=== PATIENT | female | born 1945 | race Caucasian/White ===

== ENCOUNTER 2021-06-21 16:18 | Inpatient (IN) | payer MEDICARE ==
[~2021-06-21] VITALS: Ht 157.5 cm; Wt 89.6 kg
[2021-06-22] MEDS ORDERED: TRIA1TAB5 PO (09:33)
[2021-06-22] MEDS ORDERED: HYDR-3820 PO (09:33)
[2021-06-22] MEDS ORDERED: DIPH25CA79 PO (09:33)
[2021-06-22] MEDS ORDERED: AMLO2.5T4 PO (09:33)
[2021-06-22] MEDS ORDERED: LEVO5TAB28 PO (09:33)
[2021-06-22] MEDS ORDERED: ROPI1TAB PO (09:33)
[2021-06-22] MEDS ORDERED: POTA-51 PO (09:33)
[2021-06-22] MEDS ORDERED: MELO15TA14 PO (09:33)
[2021-06-22] MEDS ORDERED: LEVO137T2 PO (09:34)
[2021-06-22] MEDS ORDERED: MULT-1136 PO (09:34)
[2021-06-22] MEDS ORDERED: FLUT9.9S NSEACH (09:34)
[2021-06-22] MEDS ORDERED: FURO40TA4 PO (09:34)
[2021-06-22] MEDS ORDERED: MELO7.5T46 PO (09:40)
[2021-06-22] MEDS ORDERED: LOPERAMIDE 2 MG (IMODIUM) TABLET PO PRN (12:15)
[2021-06-22] MEDS ORDERED: MELATONIN 3 MG TABLET PO PRN (12:15)
[2021-06-22] MEDS ORDERED: ONDANSETRON 4 MG (ZOFRAN) ORAL DISSOLVE TAB PO PRN (12:15)
[2021-06-22] MEDS ORDERED: FLEET ENEMA ADULT 1 EA BTL PR PRN (12:15)
[2021-06-22] MEDS ORDERED: ACETAMINOPHEN 325 MG TABLET PO PRN (12:15)
[2021-06-22] MEDS ORDERED: ALPRAZolam 0.25 MG (XANAX) TAB PO PRN (12:15)
[2021-06-22] MEDS ORDERED: LACTULOSE SYRUP 10GM/15ML (ENULOSE) 30ML UDC PO PRN (12:15)
[2021-06-22] MEDS ORDERED: DOCUSATE SODIUM 100 MG (COLACE) CAP PO PRN (12:15)
[2021-06-22] MEDS ORDERED: guaiFENesin/CODEINE (ROBITUSSIN AC) 10ML UDC PO PRN (12:15)
--- NOTE | 2021-06-22 14:20 | Occupational Therapy Eval ---
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 06/18/21 s/p R GSR, R reverse angela osteotomy, fusion R 1-3 metatarsocunieform joints. Social History Home: Single Level Current Living Status: Alone Entry Into Home: Ramp Steps Into Home: 0 Steps Inside Home: 0 ADL-Prior Level of Function SCALE: Activities may be completed with or without assistive devices. 9-Nrqqrojtcq-mmeltcn completes the activity by him/herself with no assistance from a helper. 5-Set-up or Clean-up Assistance-helper sets up or cleans up; patient completes activity. [place] assists only prior to or following the activity. 4-Supervision or Touching Assistance-helper provides verbal cues and/or vince kendra/steadying and/or contact guard assistance as patient completes activity. Assistance may be provided throughout the activity or intermittently. 3-Partial/Moderate Assistance-helper does LESS THAN HALF the effort. [place] lifts, holds or supports trunk or limbs, but provides less than half the effort. 2-Substantial/Maximal Assistance-helper does MORE THAN HALF the effort. [place] lifts or holds trunk or limbs and provides more than half the effort. 5-Tpqfevxvb-czdiru does ALL the effort. Patient does none of the effort to complete the activity. Or, the assistance of 2 or more helpers is required for the patient to complete the activity. If activity was not attempted, code reason: 7-Patient Refused. 9-Not Applicable-not attempted and the patient did not perform the activity before the current illness, exacerbation or injury. 10-Not Attempted due to Environmental Limitations-(lack of equipment, weather restraints, etc.). 88-Not Attempted due to Medical Conditions or Safety Concerns. ADL PLOF Comments Pt reports IND with ADLs and functional mobility at OF, no AE/AD. Pt has a walk in shower with a SC. She owns a walker and her daughter has a knee scooter pt can use. Self Care: Independent Functional Cognition: Independent DME/Equipment: Bath Chair, Shower DME/Equipment Comments walker, knee scooter. Pt states she is working on getting a w/c. OT Current Status Subjective Pt arrived to [facility]. Agreeable to OT evaluation and tx. Mental Status/Objective Patient Orientation: Person, Place, Situation Current Hand Dominance: Right Upper Extremity ROM WFL Upper Extremity Strength grossly 4/5 ADL-Treatment Eating (QC): 6 (Per pt report.) Oral Hygiene (QC): 4 (CGA standing at sink with knee scooter) Shower/Bathe Self (QC): 4 (SBA, pt able to wash/dry all parts seated on SC.) Upper Body Dressing (QC): 3 (Min A doffing jacket. Pt able to doff/don last puller shirt with set up.) Lower Body Dressing (QC): 1 (assist x2 for pant hike.) On/Off Footwear (QC): 3 (Mod A. Pt able to doff footwear on L foot, assist to don shoe L foot. ) Toileting Hygiene (QC): 1 (assist x2 required.) Other Treatments [id number] OT evaluation/tx. Pt assisted from car to w/c, then brought to [facility] to her room. Pt provided information about PLOF and home set up and participated in UE screen. Pt requests to use the bathroom, SPT from w/c to [facility] over toilet complete, assist x2 required for clothing management. Pt completed toileting, then transferred back to w/c. Post tx, pt in w/c, call light in reach and all needs met. [id number]: OT/PT cotreat due to skill of 2 clinicians required which a rehab director occupational therapist could not perform in order to coordinate UE/LEs, decrease fall risk, and due to pt's limitations in strength, activity tolerance, mobility and transfers. OT focused on UE placement, cues for sequencing and safety, and ADLs, PT focused on LE placement, gross overall movements, transfers/mobility. Pt completed bed mobility and trialed knee scooted around [facility] common area and across uneven surface (min A for balance), mod A sit to stand transfers.. Pt returned to her room, took seated rest break in w/c, then completed SPT from w/c to SC. Pt doffed clothes, completed shower, then donned clothes. Pt requests to complete hair at sink. Pt stood at sink to put product in her hair, and dry hair with hair bone drier operator, standing with knee scooter at sink in order to increase dynamic standing balance. Pt then transferred to recliner. Post tx, pt in recliner, call light in reach and all needs met, PT present to continue tx. Education OT Patient Education: Correct positioning, Energy conservation, Modified ADL techniques, Progress toward Goal/Update tx plan, Purpose of tx/functional activities, Rehab process Teaching Recipient: Patient Teaching Methods: Discussion Response to Teaching: Verbalize Understanding OT Short Term Goals Short Term Goals Time Frame: Jul 13, 2021 Shower/bathe self: 3 Lower body dressin Putting on/taking off footwear: 3 OT Custodial Goals Aids Counselor Goals Time Frame: Jul 20, 2021 Eating (QC): 6 Oral Hygiene (QC): 6 Toileting Hygiene (QC): 6 Shower/Bathe Self (QC): 6 Upper Body Dressing (QC): 6 Lower Body Dressing (QC): 6 On/Off Footwear (QC): 6 Additional Goals: 1-Demonstrate ADL Tasks, 2-Verbalize Understanding, 3- ImproveStrength/Dallin 1=Demonstrate adherence to instructed precautions during ADL tasks. 2=Patient will verbalize/demonstrate understanding of assistive devices/modifications for ADL. 3=Patient will improve strength/tolerance for activity to enable patient to perform ADL's. OT Education/Plan Problem List/Assessment Assessment: Decreased Activ Tolerance, Decreased UE Strength, Impaired Funct Balance, Impaired I ADL's, Impaired Self-Care Skills Discharge Recommendations Plan/Recommendations: Continue POC Treatment Plan/Plan of Care Patient would benefit from OT for education, treatment and training to promote independence in ADL's, mobility, safety and/or upper extremity function for ADL's. Plan of Care: ADL Retraining, Functional Mobility, Group Exercise/Act as Ind, UE Funct Exercise/Act Treatment Duration: Jul 20, 2021 Frequency: At least 5 of 7 days/Wk (IRF) Estimated Hrs Per Day: 1.5 hours per day Agreement: Yes Rehab Potential: Fair Time/GCodes Start Time: 13:40 ([id number]) Stop Time: 15:40 ([id number]) Total Time Billed (hr/min): 80 Billed Treatment Time OT evaluation [id number]: 1, EVM (20') Cotreat [id number]: 1, FA (20'), ADL 3 (40') JORGE TRENT OT Jun 22, 2021 14:20
--- NOTE | 2021-06-22 14:23 | Physical Therapy Evaluation ---
PT Evaluation-General Medical Diagnosis Admission Date 06/22/2021 Medical Diagnosis: R Acquired Pes Planovalgus Deformity with Arthrosis of R foot Onset Date: Jun 22, 2021 Therapy Diagnosis Therapy Diagnosis: weakness, debility Precautions Precautions/Isolations: Fall Prevention, Standard Precautions Weight Bear Status Right Lower Extremity: Right Non Weight Bearing Left Lower Extremity: Left Full Weight Bearing Referral Physician: Mathew Reason for Referral: Evaluation/Treatment Medical History Pertinent Medical History: DM, HTN, OA Additional Medical History Multiple vertebral fusions Bilateral TKA Social History Home: Single Level Current Living Status: Alone Entry Into Home: Ramp Prior Prior Level of Function SCALE: Activities may be completed with or without assistive devices. 4-Jarpwapogp-gzioaei completes the activity by him/herself with no assistance from a helper. 5-Set-up or Clean-up Assistance-helper sets up or cleans up; patient completes activity. [place] assists only prior to or following the activity. 4-Supervision or Touching Assistance-helper provides verbal cues and/or touching/steadying and/or contact guard assistance as patient completes activity. Assistance may be provided throughout the activity or intermittently. 3-Partial/Moderate Assistance-helper does LESS THAN HALF the effort. [place] li fts, holds or supports trunk or limbs, but provides less than half the effort. 2-Substantial/Maximal Assistance-helper does MORE THAN HALF the effort. [place] lifts or holds trunk or limbs and provides more than half the effort. 6-Jzccfyefp-iwvdbl does ALL the effort. Patient does none of the effort to complete the activity. Or, the assistance of 2 or more helpers is required for the patient to complete the activity. If activity was not attempted, code reason: 7-Patient Refused. 9-Not Applicable-not attempted and the patient did not perform the activity before the current illness, exacerbation or injury. 10-Not Attempted due to Environmental Limitations-(lack of equipment, weather restraints, etc.). 88-Not Attempted due to Medical Conditions or Safety Concerns. Bed Mobility: 6 Transfers (B,C,W/C): 6 Gait: 6 Indoor Mobility (Ambulation): Independent Prior Devices Use: Walker PT Evaluation-Current Subjective Patient presented in w/c and agreed to participate in physical therapy. Objective Patient Orientation: Person, Place, Time, Situation, Normal For Age ROM/Strength ROM Lower Extremities WFL L LE R LE soft cast Strength Lower Extremities 4/5 strength L LE grossly R LE not tested due to recent surgery. Integumentary/Posture Bowel Incontinence: No Bladder Incontinence: No Posture Trunk flexed posture Neuromuscular (Tone, Coordination, Reflexes) grossly intact Sensory Vision: Wears Glasses Hearing: Functional Transfers Roll Left & Right (QC): 6 Sit to Lying (QC): 4 Lying to Sitting/Side of Bed(Q: 4 Sit to Stand (QC): 2 Chair/Vnr-nn-Svebv Xfer(QC): 2 Toilet Transfer (QC): 1 (PT OT co-treat due to assist pulling pants up and down for toileting) Car Transfer (QC): 2 Transfers are mod assist x2 Gait Does the Patient Walk?: Yes Mode of Locomotion: Walk Anticipated Mode of Locomotion: Walk Walk 10 feet (QC): 3 Walk 50 ft with 2 Turns(QC): 3 Walk 150 ft (QC): 3 Walking 10ft/uneven surface-QC: 3 Comments/Gait Description Patient ambulated with knee scooter for 150' and required min assist for balance. Patient ambulated over unsteady ground with min assist also to help get over a bump and balance. Wheelchair Training Does the Pt Use a Wheelchair?: No Wheel 50 ft with 2 turns (QC): 88 Wheel 150 ft (QC): 88 Stairs 1 Step (curb) (QC): 88 4 Steps (QC): 88 12 Steps (QC): 88 Balance Sitting Static: Normal Sitting Dynamic: Normal Standing Static: Fair Standing Dynamic: Poor Picking up an Object (QC): 1 (Patient attemted and unable to perform safely) Treatment PT co-treated with OT due to patient debility, lack of endurance, lack of balance and for patient safety. PT worked on transfer techniques, balance, sit to stand transfers, and stand pivot transfers while OT worked on bathing, self care, and dressing. Assessment/Needs Patient required min assist while ambulating with the knee scooter. Patient required mod assist for sit to stand transfers and toilet transfer and undressing required mod assist x2 for balance and help with undressing. Patient requires skilled therapy to increase endurance, strength, ALD's and ambulation to return to PLOF. Rehab Potential: Fair PT Short Term Goals Short Term Goals Time Frame: Jul 06, 2021 Roll Left & Right: 4 Sit to lyin Lying to sitting on side of be: 4 Sit to stand: 4 Chair/bnp-cz-avurm transfer: 4 Toilet transfer: 4 Car transfer: 4 Walk 10 feet: 4 Walk 50 feet with two turns: 4 Walk 150 feet: 4 Walking 10ft on uneven surface: 4 1 step (curb): 2 Picking up objects: 2 Does pt use a wc or scooter: Yes Wheel 50ft w/2 turns: 4 Wheel 150 feet: 4 Type: Manual PT Assembly Line Worker Goals Penitentiary Goals PT Penitentiary Goals Time Frame: Jul 20, 2021 Roll Left & Right (QC): 6 Sit to Lying (QC): 6 Lying-Sitting on Side/Bed(QC): 6 Sit to Stand (QC): 6 Chair/Odx-ln-Rjeqj Xfer(QC): 6 Toilet Transfer (QC): 6 Car Transfer (QC): 6 Does the Patient Walk: Yes (Knee Scooter) Walk 10 feet (QC): 6 Walk 50ft with 2 Turns (QC): 6 Walk 150 ft (QC): 6 Walking 10ft on Uneven Surface: 6 1 Step (curb) (QC): 6 4 Steps (QC): 88 12 Steps (QC): 88 Picking up an Object (QC): 2 Does the Pt use WC or Scooter?: Yes Wheel 50 feet with 2 turns (QC: 6 Type: Manual Wheel 150 feet: 6 Type: Manual PT Plan Problem List Problem List: Activity Tolerance, Functional Strength, Safety, Balance, Gait, Transfer, Bed Mobility, ROM Treatment/Plan Treatment Plan: Continue Plan of Care Treatment Plan: Bed Mobility, Concurrent Therapy, Education, Functional A ctivity Dallin, Functional Strength, Group Therapy, Gait, Safety, Therapeutic Exercise, Transfers Treatment Duration: Jul 20, 2021 Frequency: At least 5 of 7 days/Wk (IRF) Estimated Hrs Per Day: 1.5 hours per day Patient and/or Family Agrees t: Yes Safety Risks/Education Patient Education: Gait Training, Transfer Techniques, Reviewed Precautions, Correct Positioning, Safety Issues Teaching Recipient: Patient Teaching Methods: Discussion Response to Teaching: Verbalize Understanding Time/GCodes Time In: 1400 Time Out: 1515 Total Billed Treatment Time: 45 Total Billed Treatment 1 Visit EVMod (14:00-14:10) 10 min 1 Visit FAx2 (14:40-15:15) 35 min (14:10-14:40) ISRA TAYLOR PT Jun 22, 2021 14:23
--- NOTE | 2021-06-22 14:53 | ST Cognitive Linguistic Eval ---
Speech Evaluation-General Medical Diagnosis s/p R pes Planus Correction Onset Date: Jun 18, 2021 Therapy Diagnosis Therapy Diagnosis: Cognitive Linguistic Skills WNL Precautions Precautions: Fall Precautions/Isolations: Standard Precautions Referral Referring Physician: Dr. 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 Reviewed History: Yes Social History Current Living Status: Alone Speech PLF-Current Status Prior Level of Function The patient denied concerns with her speech, language or cognition prior to or following her recent hospitalization. Subjective The patient is seated upright in wheelchair upon entrance to the room. The patient greeted the clinician appropriately and is agreeable to participation in the cognitive linguistic evaluation. The patient's daughter is present intermittently throughout the assessment. Language Eval: Auditory Comprehends Simple Yes/No Ques: Functional Indent/Objects Multiple [place]: Functional Ident/Pics in Multiple [place]: Functional Follows 1-Step Commands: Functional Follows Complex Directions: Functional Follows General Conversations: Functional Language Eval: Verbal Language Completes Spontaneous Greeting: Functional Produces Auto, Serial Info: Functional Imitates Simple Words/Phrases: Functional Word Finding: Functional Requests Basic Needs: Functional States Basic Personal Info: Functional Expresses Complex Ideas: Functional Language Evaluation: Reading Follows Simple Written Direct: Functional Language Evaluation: Writing Writes to Simple Dictation: Functional Cognitive Patient Orientation The patient is independently oriented to self, location, month, day of week, date and year. Objective Cognitive Domain Attention: WNL Memory: WNL Problem Solving: Functional Executive Functions: WNL Visuospatial Skills: WNL Composite Severity Rating: WNL Clock Drawing Severity Rating: WN Objective Formal/Standardized Tests [facility] Mental Status ([facility]) Results The patient demonstrated a result of +30/30 on the SLUMS correlating to normal neurocognitive function. Oral Motor/Speech Production The patient does not display dysarthria or apraxia of speech at this time. The patient is 100% intelligible in known and unknown contexts. Impression The patient demonstrated neurocognitive function WNL. Speech Patient Assess Expression of Ideas/Wants: Expression (4) Understanding Verbal Content: Understands (4) Brief Interview-Mental Status: Yes Repetition of Three Words: Three (3) Temporal Orientation: Year: Correct (3) Temporal Orientation: Month: Accurate within 5 days(2) Temporal Orientation: Day: Correct (1) Recall : Wear to say "Sock": Yes, no cue required (2) Recall : Color: Yes, no cue required (2) Recall : Bed: Yes, no cue required (2) Memory/Recall Ability: Current season, Location of own room, Staff names and faces, That he or she is in a hsp/hsp unit Speech-Plan Treatment Plan Speech Therapy Treatment Plan: Discontinue ST Frequency: 1 time per week Estimated Hrs Per Day: .5 hour per day Rehab Potential: Fair Pt/Family Agrees to Plan: Yes Safety Risks/Education Teaching Recipient: Patient Teaching Methods: Discussion Response to Teaching: Verbalize Understanding Education Topics Provided: Results of SLDREA, Plan of Care Time Speech Therapy Time In: 14:10 Speech Therapy Time Out: 14:40 Total Billed Time: 30 Billed Treatment Time 1, MESSI CHAPARRO [facility] ST Jun 22, 2021 14:53
--- NOTE | 2021-06-22 15:56 | Physical Therapy Daily Note ---
PT Daily Note-Current Subjective Patient in the BR finishing shower with OT upon PT arrival. Patient agreeable to treatment. Mental Status Patient Orientation: Person, Place, Time, Situation Transfers SCALE: Activities may be completed with or without assistive devices. 0-Qlfxkddocm-awazcdb completes the activity by him/herself with no assistance from a helper. 5-Set-up or Clean-up Assistance-helper sets up or cleans up; patient completes activity. [place] assists only prior to or following the activity. 4-Supervision or Touching Assistance-helper provides verbal cues and/or touching/steadying and/or contact guard assistance as patient completes activit y. Assistance may be provided throughout the activity or intermittently. 3-Partial/Moderate Assistance-helper does LESS THAN HALF the effort. [place] lifts, holds or supports trunk or limbs, but provides less than half the effort. 2-Substantial/Maximal Assistance-helper does MORE THAN HALF the effort. [place] lifts or holds trunk or limbs and provides more than half the effort. 2-Jhqfyxuqi-xpgoqy does ALL the effort. Patient does none of the effort to complete the activity. Or, the assistance of 2 or more helpers is required for the patient to complete the activity. If activity was not attempted, code reason: 7-Patient Refused. 9-Not Applicable-not attempted and the patient did not perform the activity before the current illness, exacerbation or injury. 10-Not Attempted due to Environmental Limitations-(lack of equipment, weather restraints, etc.). 88-Not Attempted due to Medical Conditions or Safety Concerns. Sit to Stand (QC): 3 Chair/Tok-be-Fchfe Xfer(QC): 3 Toilet Transfer (QC): 3 Weight Bearing Right Lower Extremity: Right Non Weight Bearing Left Lower Extremity: Left Full Weight Bearing Gait Training Does the Patient Walk?: Yes Distance: 50 Walk 10 feet (QC): 4 Walk 50 ft with 2 Turns(QC): 4 Patient uses knee scooter for gait and mobility. Treatments Patient performed static and dynamic standing balance while right LE supported on knee scooter. Assessment Current Status: Fair Progress Patient tolerated treatment well. Performs static and dynamic standing balance with min A with right LE on knee scooter while performing dressing and undressing for toileting. Patient ambulates 50 feet with CGA and verbal cues for safety and to avoid objects. Patient in chair post treatment with all needs met, nursing notified, and call light in reach. PT Short Term Goals Short Term Goals Time Frame: Jul 06, 2021 Roll Left & Right: 4 Sit to lyin Lying to sitting on side of be: 4 Sit to stand: 4 Chair/hat-oh-jjgpk transfer: 4 Toilet transfer: 4 Car transfer: 4 Walk 10 feet: 4 Walk 50 feet with two turns: 4 Walk 150 feet: 4 Walking 10ft on uneven surface: 4 1 step (curb): 2 Picking up objects: 2 Does pt use a wc or scooter: Yes Wheel 50ft w/2 turns: 4 Wheel 150 feet: 4 Type: Manual PT Correction Goals Correction Goals PT Centrifugal Casting Machine Tender Goals Time Frame: Jul 20, 2021 Roll Left & Right (QC): 6 Sit to Lying (QC): 6 Lying-Sitting on Side/Bed(QC): 6 Sit to Stand (QC): 6 Chair/Ykr-ea-Tnmmg Xfer(QC): 6 Toilet Transfer (QC): 6 Car Transfer (QC): 6 Does the Patient Walk: Yes (Knee Scooter) Walk 10 feet (QC): 6 Walk 50ft with 2 Turns (QC): 6 Walk 150 ft (QC): 6 Walking 10ft on Uneven Surface: 6 1 Step (curb) (QC): 6 4 Steps (QC): 88 12 Steps (QC): 88 Picking up an Object (QC): 2 Does the Pt use WC or Scooter?: Yes Wheel 50 feet with 2 turns (QC: 6 Type: Manual Wheel 150 feet: 6 Type: Manual PT Plan Treatment/Plan Treatment Plan: Continue Plan of Care Treatment Plan: Bed Mobility, Concurrent Therapy, Education, Functional Activity Dallin, Functional Strength, Group Therapy, Gait, Safety, Therapeutic Exercise, Transfers Treatment Duration: Jul 20, 2021 Frequency: At least 5 of 7 days/Wk (IRF) Estimated Hrs Per Day: 1.5 hours per day Patient and/or Family Agrees t: Yes Safety Risks/Education Patient Education: Gait Training, Transfer Techniques Teaching Recipient: Patient Teaching Methods: Demonstration, Discussion Response to Teaching: Verbalize Understanding, Return Demonstration Time/GCodes Time In: 1515 Time Out: 1545 Total Billed Treatment Time: 30 Total Billed Treatment Visit, LUIS EDUARDO Olguin JOHN A PT Jun 22, 2021 15:56
[2021-06-22] MEDS ORDERED: MELOXICAM 7.5 MG (MOBIC) TABLET PO PRN (16:45)
[2021-06-22] MEDS: FUROSEMIDE 40 MG (LASIX) TAB PO SCH (17:27)
[2021-06-22] MEDS: rOPINIRole 1 MG (REQUIP) TABLET PO SCH ×2 (17:27→20:21)
[2021-06-22 18:00] VITALS: BP 161/73
[2021-06-22] MEDS ORDERED: KCL 20 MEQ TAB (K-DUR) PO SCH (18:00)
[2021-06-22 20:00] VITALS: BP 160/76
[2021-06-22] MEDS: SENNA W/DOCUSATE (SENOKOT S) TABLET PO SCH (20:20)
[2021-06-22] MEDS: BISACODYL 10 MG SUPP (DULCOLAX) PR PRN (20:21)
[2021-06-22] MEDS: DOCUSATE SODIUM 100 MG (COLACE) CAP PO SCH (20:21)
[2021-06-22] MEDS: LORATADINE (CLARITIN) 10 MG TAB PO SCH (20:21)
[2021-06-22] MEDS: polyethylene glycoL POWDER 17 GM (MIRALAX) PACK PO SCH (20:24)
[2021-06-22] MEDS: FLUTICASONE NASAL SPRAY (FLONASE) 16 GM BTL NS SCH (20:31)
[2021-06-22 20:45] VITALS: BP 132/73
--- NOTE | 2021-06-22 20:45 | PM&R Post Admission Assessment ---
PM&R HP Date of Visit: Jun 22, 2021 Time of Visit: 18:15 History of Present Illness Chief complaint: Debility following right foot surgery History of present illness: This is a 75-year-old white female who sees Dr. Carranza in [place] who has a past medical history of hypertension, prediabetes, thyroid disorder and osteoarthritis who underwent an extensive right foot surgery due to difficulty with pain in navigation due to pes planovalgus deformity with arthrosis of the right hindfoot and midfoot. She had surgery on 06/18/2021 with right upper first Tuttle osteotomy with fusion of the right 13 metatarsocuneiform joints. This was uncomplicated surgery. She is now nonweightbearing on the right lower extremity so she will be utilizing a knee scooter. Past Ifahzrj-Brride-Dmkazx Hx Past Med/Social Hx: Reviewed Nursing Past Med/Soc Hx, Reviewed and Corrections made Patient Social History Marrital Status: single Employed/Student: retired Alcohol Use: Denies Use Smoking Status: Never a Smoker Recent Foreign Travel: No Contact w/other who traveled: No Past Medical History Surgeries: Orthopedic Cardiac: High Cholesterol, Hypertension Musculoskeletal: Arthritis Endocrine: Diabetes, Non-Insulin dep Prior Level of Function Bed Mobility: 6 Transfers: 6 Gait: 6 Indoor Mobility (Ambulation): Independent Prior Devices Use: Walker Self Care: Independent Functional Cognition: Independent Current Level of Fuctioning Roll Left to Right: 6 Sit to Lyin Lying to Sitting/Side of Bed: 4 Sit to Stand: 3 Chair/Dcp-vm-Ccttb Xfer: 3 Car Transfer: 2 Does the Patient Walk: Yes Mode of Locomotion: Walk Anticipated Mode of Locomotion: Walk Walk 10 feet: 4 Walk 50 ft with 2 Turns: 4 Walk 150 ft: 3 Walking 10ft on uneven surface: 3 Does the Pt Use a Wheelchair: No Wheel 50 ft with 2 turns: 88 Wheel 150 ft: 88 1 Step (curb): 88 4 Steps: 88 12 Steps: 88 Picking up an Object: 1 (Patient attemted and unable to perform safely) Eatin (Per pt report.) Oral Hygiene: 4 (CGA standing at sink with knee scooter) Shower/Bathe Self: 4 (SBA, pt able to wash/dry all parts seated on SC.) Upper Body Dressin (Min A doffing jacket. 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 Pt able to doff footwear on L foot, assist to don shoe L foot. ) Toileting Hygiene: 1 (assist x2 required.) PM&R Allergy/Meds/Data Review Allergies Coded Allergies: sulfamethoxazole (Verified Allergy, Unknown, 06/22/21) trimethoprim (Verified Allergy, Unknown, 06/22/21) lisinopril (Verified Adverse Reaction, Unknown, 06/22/21) morphine (Verified Adverse Reaction, Unknown, 06/22/21) Home Medications Scheduled Amlodipine Besylate (Amlodipine Besylate), 2.5 MG PO DAILY, (Reported) Diphenhydramine HCl (Benadryl), 25 MG PO HS, (Reported) Fluticasone Propionate (Flonase Allergy Relief), 1 SPRAY NSEACH BID, (Reported) Furosemide (Furosemide), 40 MG PO 0900,1500, (Reported) Levocetirizine Dihydrochloride (Xyzal), 5 MG PO HS, (Reported) Levothyroxine Sodium (Levothyroxine Sodium), 137 MCG PO DAILY, (Reported) Multivitamin (Multivitamin), 1 EACH PO DAILY, (Reported) Potassium Chloride (Potassium Chloride), 20 MEQ PO TID, (Reported) Ropinirole HCl (Ropinirole HCl), 1 MG PO TID, (Reported) Triamterene/Hydrochlorothiazid (Triamterene-Hctz 75-50 mg Tab), 1 EACH PO DAILY, (Reported) Scheduled PRN Hydrocodone/Acetaminophen (Hydrocodone-Acetamin 10-325 mg), 1-2 EACH PO Q4H PRN for PAIN-MODERATE (5-7), (Reported) Meloxicam (Meloxicam), 7.5 MG PO BID PRN for PAIN-MILD (1-4), (Reported) Discontinued Medications Meloxicam (Mobic), 15 MG PO BID PRN for PAIN-MILD (1-4), (Reported) Discontinued Reason: Prescription changed Current Medications Current Medications Reviewed Review of Systems Constitutional: see HPI, malaise, weakness EENTM: no symptoms reported Respiratory: no symptoms reported Cardiovascular: no symptoms reported Gastrointestinal: constipation Genitourinary: decreased output Musculoskeletal: joint pain Skin: no symptoms reported Psychiatric/Neurological: No Symptoms Reported All Other Systems Reviewed Negative Unless Noted: Yes Physical Exam Physical Exam Vital Signs Vital Signs - First Documented 06/22/21 18:00 Temp 37.0 Pulse 89 Resp 16 B/P (MAP) 161/73 (102) Pulse Ox 97 O2 Delivery Room Air Capillary Refill : Height, Weight, BMI Height: '" Weight: lbs. oz. kg; 37.57 BMI Method: General Appearance: No Apparent Distress, WD/WN Eyes: Bilateral Eye Normal Inspection, Bilateral Eye PERRL HEENT: PERRL/EOMI, Normal ENT Inspection, Pharynx Normal Neck: Full Range of Motion, Normal Inspection, Non Tender, Supple, Carotid Bruit Respiratory: Chest Non Tender, Lungs Clear, Normal Breath Sounds, No Accessory Muscle Use, No Respiratory Distress Cardiovascular: Regular Rate, Rhythm, No Edema, No Gallop, No JVD, No Murmur, Normal Peripheral Pulses Gastrointestinal: Normal Bowel Sounds, No Organomegaly, No Pulsatile Mass, Non Tender, Soft Back: Normal Inspection, No CVA Tenderness, No Vertebral Tenderness Extremity: Normal Capillary Refill, Normal Inspection, Normal Range of Motion, Non Tender, No Calf Tenderness, No Pedal Edema Neurologic/Psychiatric: Alert, Oriented x3, No Motor/Sensory Deficits, Normal Mood/Affect, manager books II-XII Norm as Tested, Other (Unable to bear weight on right foot) Skin: Normal Color, Warm/Dry Lymphatic: No Adenopathy PM&R Medical Assessment & Plan REHAB/MEDICAL ASSESSMENT AND PLAN: REHAB IMPAIRMENT GROUP: Pes planovalgus deformity resolution on the right ETIOLOGIC DIAGNOSIS: Pes planovalgus deformity resolution on the right The comorbidities that impact the patients function and/or functional outcome by: High risk for falls due to knee scooter, decreased ADLs REHAB PLAN: The patient is being admitted to our comprehensive inpatient rehabilitation facility and can tolerate the intensity of service consisting of at least: 180 minutes of therapy a day, 5 out of 7 days a week Rehab treatment will consist of: PT and OT will focus on regaining function with use of knee scooter and other assistive devices in order to regain enough function to live independently The patient/family has a good understanding of our discharge process and will benefit from an interdisciplinary inpatient rehabilitation program. The patient has potential to make improvement and is in need of at least two of the fo llowing multidisciplinary therapies including but not limited to physical, occupational, speech, and prosthetics and orthotics. Additionally the patient will need services from respiratory, nutritional services, wound care, psychology, etc. (Customize this to each patient). Given the patients complex condition and risk of further medical complications, rehabilitation services can not be safely or effectively provided at a lower level of care such as a [facility] facility. BARRIERS TO DISCHARGE: Lives alone ESTIMATED LOS: 7 days DISPOSITION: Home RELEVANT CHANGES SINCE PREADMISSION SCREENING: I have compared the patients medical and functional status at the time of the preadmission screening and there are: No changes PROGNOSIS: Good REHABILITATION GOALS: 1. PT and OT will focus on regaining function with use of knee scooter and other assistive devices in order to regain enough function to live independently All the above goals were reviewed with the patient and he/she is in agreement. By signing this document, I acknowledge that I have personally performed a full physical examination on this patient within 24 hours of admission to this inpatient rehabilitation facility and have determined the patient to be able to tolerate the above course of treatment at an intensive level for a reasonable period of time. I will be completing a detailed individualized Plan of Care for this patient by day #4 of the patients stay based upon the Preadmission Screen, the Post-Admission Evaluation, and the therapy evaluations. Admission Dx/Comorbidities: (1) Pes planovalgus ICD Codes: Q66.6 - Other congenital valgus deformities of feet (2) Hypertension ICD Codes: I10 - Essential (primary) hypertension (3) Restless leg syndrome ICD Codes: G25.81 - Restless legs syndrome (4) Neuropathy ICD Codes: G62.9 - Polyneuropathy, unspecified (5) Thyroid disease ICD Codes: E07.9 - Disorder of thyroid, unspecified (6) Constipation ICD Codes: K59.00 - Constipation, unspecified Assessment/Plan Assessment and Plan Assess & Plan/Chief Complaint Assessment: Right pes planovalgus deformity surgical resolution DVT prophylaxis with Lovenox Hypertension Hyperlipidemia Thyroid disease Postoperative constipation Plan: Home meds Rehab protocol Pain control DIAZ KELLY DO Jun 22, 2021 20:45
[2021-06-22] MEDS ORDERED: LEVOCETIRIZINE 5 MG TAB (XYZAL) NON-FORMULARY PO SCH (21:00)
[2021-06-22] MEDS ORDERED: NON-FORMULARY MEDICATION 1 EA EA (Potassium Chloride 20 MEQ) PO SCH (21:00)
[2021-06-22] MEDS ORDERED: NON-FORMULARY MEDICATION 1 EA EA (Fluticasone Propionate (Flonase Allergy Relief) 1 SPRAY) NSEACH SCH (21:00)
[2021-06-22] MEDS ORDERED: rOPINIRole 1 MG (REQUIP) TABLET PO SCH (21:00)
[2021-06-22] MEDS ORDERED: NON-FORMULARY MEDICATION 1 EA EA (Diphenhydramine HCl (Benadryl) 25 MG) PO SCH (21:00)
[2021-06-22 21:40] VITALS: BP 114/61
[2021-06-22] MEDS: CALCIUM CARBONATE 500 MG (TUMS) TAB.CHEW PO PRN (21:41)
[2021-06-22] MEDS: diphenhydrAMINE 25 MG TAB (BENADRYL) PO SCH (21:43)
[2021-06-22] MEDS: ENOXAPARIN 40 MG/0.4 ML (LOVENOX) SYR SC SCH (22:46)
[2021-06-23 05:33] LABS: HEMATOCRIT 32 % (35-52); HEMOGLOBIN 10.9 g/dL (11.5-16.0); MEAN CORPUSCULAR VOLUME 91 fL (80-99)
[2021-06-23 05:34] LABS: BASOPHILS % (AUTO) 1 % (0-10); EOSINOPHILS # (AUTO) 0.2 10^3/uL (0.0-0.3); EOSINOPHILS % (AUTO) 4 % (0-10); LYMPHOCYTES % (AUTO) 16 % (12-44); MEAN CORPUSCULAR HEMOGLOBIN 31 pg (25-34); MEAN CORPUSCULAR HGB CONC 34 g/dL (32-36); MEAN PLATELET VOLUME 9.7 fL (9.0-12.2); MONOCYTES # (AUTO) 0.6 10^3/uL (0.0-1.0); MONOCYTES % (AUTO) 10 % (0-12); NEUTROPHILS # (AUTO) 4.1 10^3/uL (1.8-7.8); NEUTROPHILS % (AUTO) 69 % (42-75); PLATELET COUNT 194 10^3/uL (130-400)
[2021-06-23 05:49] LABS: ALBUMIN 3.4 GM/DL (3.2-4.5); POTASSIUM 2.8 MMOL/L (3.6-5.0)
[2021-06-23 05:51] LABS: CALCIUM 9.2 MG/DL (8.5-10.1)
[2021-06-23 05:52] LABS: TOTAL PROTEIN 6.1 GM/DL (6.4-8.2)
[2021-06-23 05:54] LABS: BILIRUBIN,TOTAL 0.7 MG/DL (0.1-1.0)
[2021-06-23 05:55] LABS: CREATININE SERUM 0.72 MG/DL (0.60-1.30)
[2021-06-23] MEDS: MULTIVIT W/MINERALS TAB (THERAGRAN M) PO SCH ×3 (06:08→21:02)
[2021-06-23] MEDS: LEVOTHYROXINE 25 MCG (LEVOTHROID) TAB PO SCH (06:09)
[2021-06-23] MEDS: LEVOTHYROXINE 112 MCG (LEVOTHROID) TAB PO SCH (06:09)
[2021-06-23] MEDS: rOPINIRole 1 MG (REQUIP) TABLET PO SCH ×3 (06:20→21:02)
--- NOTE | 2021-06-23 06:37 | PM&R Progress Note ---
Subjective HPI/CC On Admission Date Seen by Provider: Jun 23, 2021 Time Seen by Provider: 12:00 Subjective/Events-last exam 06/23/2021: Patient doing much better Pain is well controlled now that we changed the hydrocodone to 10/325 Bowels are moving yet so I added suppositories and mag citrate Potassium supplement will be increased to 40 mEq twice daily She reportedly takes spironolactone but I did not see that on her home medication list we will start 25 mg daily to protect potassium Review of Systems General: Fatigue, Malaise Musculoskeletal: foot pain Objective Exam Vital Signs Vital Signs Date Time Temp Pulse Resp B/P (MAP) Pulse Ox O2 Delivery O2 Flow Rate FiO2 06/23/21 21:04 Room Air 06/23/21 20:00 36.6 76 18 137/62 (87) 98 Capillary Refill : General Appearance: No Apparent Distress, WD/WN HEENT: PERRL/EOMI, Normal ENT Inspection, Pharynx Normal Neck: Full Range of Motion, Normal Inspection, Non Tender, Supple, Carotid Bruit Respiratory: Chest Non Tender, Lungs Clear, Normal Breath Sounds, No Accessory Muscle Use, No Respiratory Distress Cardiovascular: Regular Rate, Rhythm, No Edema, No Gallop, No JVD, No Murmur, Normal Peripheral Pulses Gastrointestinal: Normal Bowel Sounds, No Organomegaly, No Pulsatile Mass, Non Tender, Soft Back: Normal Inspection, No CVA Tenderness, No Vertebral Tenderness Extremity: Normal Capillary Refill, Normal Inspection, Normal Range of Motion, Non Tender, No Calf Tenderness, No Pedal Edema Neurologic/Psychiatric: Alert, Oriented x3, No Motor/Sensory Deficits, Normal Mood/Affect, cash specialist II-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 FIM Transfers Therapy Code Descriptions/Definitions Functional [place] Measure: 0=Not Assessed/NA 4=Minimal Assistance 1=Total Assistance 5=Supervision or Setup 2=Maximal Assistance 6=Modified [place] 3=Moderate Assistance 7=Complete IndependenceSCALE: Activities may be completed with or without assistive devices. 6-Uahhrxykrv-pbquqhf completes the activity by him/herself with no assistance from a helper. 5-Set-up or Clean-up Assistance-helper sets up or cleans up; patient completes activity. Cameron assists only prior to or following the activity. 4-Supervision or Touching Assistance-helper provides verbal cues and/or touching/steadying and/or contact guard assistance as patient completes activity. Assistance may be provided throughout the activity or intermittently. 3-Partial/Moderate Assistance-helper does LESS THAN HALF the effort. Cameron lifts, holds or supports trunk or limbs, but provides less than half the effort. 2-Substantial/Maximal Assistance-helper does MORE THAN HALF the effort. Cameron lifts or holds trunk or limbs and provides more than half the effort. 2-Nzpdfnvxm-uhztwy does ALL the effort. Patient does none of the effort to complete the activity. Or, the assistance of 2 or more helpers is required for the patient to complete the activity. If activity was not attempted, code reason: 7-Patient Refused. 9-Not Applicable-not attempted and the patient did not perform the activity before the current illness, exacerbation or injury. 10-Not Attempted due to Environmental Limitations-(lack of equipment, weather restraints, etc.). 88-Not Attempted due to Medical Conditions or Safety Concerns. Roll Left to Right (QC): 6 Sit to Lying (QC): 4 Sit to Stand (QC): 3 Chair/Etj-oj-Xxdeg Xfer(QC): 3 Car Transfer (QC): 2 Gait Training Does the Patient Walk?: Yes Distance: 50 Walk 10 feet (QC): 4 Walk 50 ft with 2 Turns(QC): 4 Walk 150 ft (QC): 3 Walking 10ft/uneven surface-QC: 3 Wheelchair Training Does the Pt Use a Wheelchair?: No Wheel 50 ft with 2 turns (QC): 88 Wheel 150 ft (QC): 88 Stair Training 1 Step (curb) (QC): 88 4 Steps (QC): 88 12 Steps (QC): 88 Balance Picking up an Object (QC): 1 (Patient attemted and unable to perform safely) ADL-Treatment Eating (QC): 6 (Per pt report.) Oral Hygiene (QC): 4 (CGA standing at sink with knee scooter) Shower/Bathe Self (QC): 4 (SBA, pt able to wash/dry all parts seated on SC.) Upper Body Dressing (QC): 3 (Min A doffing jacket. 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 Pt able to doff footwear on L foot, assist to don shoe L foot. ) Toileting Hygiene (QC): 1 (assist x2 required.) Assessment/Plan Assessment and Plan Assess & Plan/Chief Complaint Assessment: Right pes planovalgus deformity surgical resolution DVT prophylaxis with Lovenox Hypertension Hyperlipidemia Thyroid disease Postoperative constipation Hypokalemia Plan: Home meds Rehab protocol Pain control 06/23/2021: Pain control Increase potassium Add Aldactone (1) Pes planovalgus (2) Hypertension (3) Restless leg syndrome (4) Neuropathy (5) Thyroid disease (6) Constipation DIAZ KELLY DO Jun 23, 2021 06:37
--- NOTE | 2021-06-23 06:37 | Individualized Plan of Care ---
Individualized Plan of Care Rehab Nursing IPOC Order Admission Date Jun 22, 2021 at 13:40 Current Orders Orders Admission Order(Inpt,Obs,Sdc) (06/22/21 12:15) Vital Signs: Per Unit Policy ( 08,16,00 (06/22/21 12:15) Kavon Vargas (06/22/21 12:15) Sequential Compression Device (06/22/21 12:15) Transit Mixer Driver-Inpt Rehab Con (06/22/21 12:15) Rehab Nursing Orders-Ipoc (06/22/21 12:15) Physical Therapy Rehab Orders (06/22/21 12:15) Occupational Therapy Rehab Ord (06/22/21 12:15) Speech Therapy Rehab Orders (06/22/21 12:15) Cbc With Automated Diff (06/23/21 06:00) Comprehensive Metabolic Panel (06/23/21 06:00) Precautions (Aru) (06/22/21 12:15) Weekly Weight WEEK (06/22/21 12:15) Rehab-Intensity Of Therapy (06/22/21 12:15) Initiate Admission Nursing Pro .admission (06/22/21 12:15) Alprazolam Tablet (Xanax Tablet) (06/22/21 12:15) Calcium Carbonate Chew Tablet (Antacid C (06/22/21 12:15) Diphenhydramine Tablet (Benadryl Tablet) (06/22/21 12:15) Docusate Sodium Capsule (Colace Capsule) (06/22/21 21:00) Docusate Sodium Capsule (Colace Capsule) (06/22/21 12:15) Bisacodyl Suppository (Dulcolax Supposit (06/22/21 12:15) Lactulose Oral Solution (Enulose Oral So (06/22/21 12:15) Na Phos/Na Biphos Enema (Fleet Enema Shaggy (06/22/21 12:15) Guaifenesin/Codeine Syrup (Robitussin Ac (06/22/21 12:15) Loperamide Tablet (Imodium Tablet) (06/22/21 12:15) Enoxaparin Injection (Lovenox Injectio (06/22/21 12:15) Melatonin Tablet (Melatonin Tablet) (06/22/21 12:15) Polyethylene Glycol Powder Pkt (Miralax (06/22/21 21:00) Ondansetron Oral Dissolve Tab (Zofran (06/22/21 12:15) Senna S Tablet (Senokot S Tablet) (06/22/21 21:00) Acetaminophen Tablet/Caplet (Tylenol T (06/22/21 12:15) Code/Resuscitation (06/22/21 12:15) Initiate Admission Nursing Pro .admission (06/22/21 12:15) Admission Arrival Bed Request (06/22/21 14:33) General/Regular (06/22/21 Lunch) Patient Visit (06/22/21 ) Speech Sound Lang Comp (06/22/21 ) Treat. Speech/Lang/Voice (06/22/21 ) Nursing Communication (Order) (06/22/21 15:14) Patient Visit (06/22/21 ) Pt Eval Moderate Complexity (06/22/21 ) Functional Activities, Ea 15 (06/22/21 ) Patient Visit (06/22/21 ) Functional Activities, Ea 15 (06/22/21 ) Gait Training, Ea 15 Min (06/22/21 ) Amlodipine Tablet (Norvasc Tablet) (06/23/21 09:00) Furosemide Tablet (Lasix Tablet) (06/23/21 09:00) Hydrocodone/Apap 10/325 Tablet (Lortab 1 (06/22/21 16:45) Meloxicam Tablet (Mobic Tablet) (06/22/21 16:45) Ropinirole Tablet (Requip Tablet) (06/22/21 21:00) Triamterene/Hctz 75-50 Tablet (Maxzide 7 (06/23/21 09:00) (Nf) Diphenhydramine Hcl (Benadryl) (06/22/21 21:00) (Nf) Fluticasone Propionate (Flonase All (06/22/21 21:00) (Nf) Levothyroxine Sodium (06/23/21 09:00) (Nf) Multivitamin (06/23/21 09:00) (Nf) Potassium Chloride (06/22/21 21:00) Levocetirizine (Non-Formulary) (Xyzal (N (06/22/21 21:00) Furosemide Tablet (Lasix Tablet) (06/22/21 16:45) Ropinirole Tablet (Requip Tablet) (06/22/21 17:00) Loratadine Tablet (Claritin Tablet) (06/22/21 21:00) Therapeutic Multivitamin Tab (Vitamins, (06/23/21 07:00) Levothyroxine Tablet (Synthroid Tablet) (06/23/21 06:30) Levothyroxine Tablet (Synthroid Tablet) (06/23/21 06:30) Potassium Chloride (Tablet) (K Dur Table (06/22/21 18:00) Diphenhydramine Tablet (Benadryl Tablet) (06/22/21 21:00) Fluticasone Nasal [place] (Flonase Nasal S (06/22/21 21:00) Ropinirole Tablet (Requip Tablet) (06/23/21 06:15) Therapeutic Multivitamin Tab (Vitamins, (06/23/21 21:00) Potassium Chloride (Tablet) (K Dur Table (06/23/21 08:00) Hydrocodone/Apap 5/325 Tablet (Lortab 5 (06/23/21 11:04) Hydrocodone/Apap 5/325 Tablet (Lortab 5 (06/23/21 11:15) Patient Visit (06/23/21 ) Exercise Therap, Ea 15 Min (06/23/21 ) Functional Activities, Ea 15 (06/23/21 ) Wheelchair Mgmt/Propulsn 15min (06/23/21 ) Magnesium Citrate Oral Soln (Citrate Of (06/23/21 12:30) Spironolactone Tablet (Aldactone Tablet) (06/23/21 12:30) Rehab Nursing Orders: Ongoing Assess. of Cognitive Status, Ongoing Assess. of Function Status, Bladder Management, Bladder Scan, Bladder Training, Bowel Management, Bowel Training, Disease Management & Educaiton, DVT Prophylaxis, Fall Prevention, Fluid/Electrolyte/Nutrition Mgmt, Infection Prevention, Medication Management & Education, Management of Risks & Complications, Management of Skin Intergrity, Nutrition Management, Pain Management, Patient/Family Support, Safety Management, Wound Management Intensity of Therapy to be met Patient to be seen: Min.3h per day/5 of 7d PT IPOC Problem List: Activity Tolerance, Functional Strength, Safety, Balance, Gait, Transfer, Bed Mobility, ROM Treatment Plan: Continue Plan of Care Bed Mobility, Concurrent Therapy, Education, Functional Activity [place], Functional Strength, Group Therapy, Gait, Safety, Therapeutic Exercise, Transfers Treatment Duration: Jul 20, 2021 Frequency: At least 5 of 7 days/Wk (IRF) Estimated Hrs Per Day: 1.5 hours per day OT IPOC Problems: Decreased Activ Tolerance, Decreased UE Strength, Impaired Funct Balance, Impaired I ADL's, Impaired Self-Care Skills OT Treatment, Training and Edu: Yes Plan of Care: ADL Retraining, Functional Mobility, Group Exercise/Act as Ind, UE Funct Exercise/Act Treatment Duration: Jul 20, 2021 Frequency: At least 5 of 7 days/Wk (IRF) Estimated Hrs Per Day: 1.[address] IPOC Speech Therapy Treatment Plan: Discontinue ST Treatment Duration: Jun 22, 2021 Frequency: 1 time per week Estimated Hrs Per Day: .5 hour per day Transit Mixer Driver/Case Mgmt Transit Mixer Driver/Case Managemen: Discharge Planning Dietitian/Bio Medical Technician Dietitian/Bio Medical Technician to monitor nutritional status and make changes and/or recommendations as needed and work with speech pathology on dietary upgrades as the occur. Physician IPOC Medical Issues being managed closely and that require the 24 hour availability of a physician: Patient will require close monitoring due to extensive right foot surgery with increased risk for thrombosis in addition severe hypokalemia will require close monitoring with aggressive supplementation Medical Issues: Bowel/Bladder Function, DVT Prophylaxis, Falls Precautions, Fluid/Electrolyte/Nutrition Balance, Infection Protection, Pain Management, Weight Bearing Precautions, Wound Care Brief Synthesis of Preadmission Screen, Post-Admission Evaluation, and Therapy Evaluations: PT and OT will focus on regaining function with weightbearing restrictions on the right side, increase independence in ADLs in order to go home and live independently Medical Prognosis: Good Anticipated Length of Stay: 10 days DIAZ KELLY DO Jun 23, 2021 06:37
[2021-06-23 07:24] VITALS: BP 127/59
[2021-06-23] MEDS: SENNA W/DOCUSATE (SENOKOT S) TABLET PO SCH ×2 (07:44→21:02)
[2021-06-23] MEDS: amLODIPine 2.5MG (NORVASC) TAB PO SCH (07:44)
[2021-06-23] MEDS: TRIAMTERENE/HCTZ 75-50 (MAXZIDE,DYAZIDE) TABLET PO SCH (07:44)
[2021-06-23] MEDS: DOCUSATE SODIUM 100 MG (COLACE) CAP PO SCH ×2 (07:44→21:03)
[2021-06-23] MEDS: KCL 20 MEQ TAB (K-DUR) PO SCH ×3 (07:44→18:20)
[2021-06-23] MEDS: FLUTICASONE NASAL SPRAY (FLONASE) 16 GM BTL NS SCH ×2 (07:45→21:03)
--- NOTE | 2021-06-23 08:59 | Physical Therapy Daily Note ---
PT Daily Note-Current Subjective Pt. in bed , agrees to Rx, Pt. states she had an incident with the scooter last evening where she was in a precarious situation almost falling and required the assist of 5 people to recover. Pt. c/o pain in right groin area with SLR that she relates to therapy yesterday Pain Numeric Pain Scale: 5-Moderate Pain Location: Right Location Body Site: Hip (groin area) Pain Description: Ache Mental Status Patient Orientation: Normal For Age Attachments: Other-See Comments (casted right foot/ankle) Transfers SCALE: Activities may be completed with or without assistive devices. 0-Lkvijqqqcx-vcsgtpa completes the activity by him/herself with no assistance from a helper. 5-Set-up or Clean-up Assistance-helper sets up or cleans up; patient completes activity. [place] assists only prior to or following the activity. 4-Supervision or Touching Assistance-helper provides verbal cues and/or touching/steadying and/or contact guard assistance as patient completes activity. Assistance may be provided throughout the activity or intermittently. 3-Partial/Moderate Assistance-helper does LESS THAN HALF the effort. [place] l ifts, holds or supports trunk or limbs, but provides less than half the effort. 2-Substantial/Maximal Assistance-helper does MORE THAN HALF the effort. [place] lifts or holds trunk or limbs and provides more than half the effort. 6-Ropzdddsg-vwgpjp does ALL the effort. Patient does none of the effort to complete the activity. Or, the assistance of 2 or more helpers is required for t he patient to complete the activity. If activity was not attempted, code reason: 7-Patient Refused. 9-Not Applicable-not attempted and the patient did not perform the activity before the current illness, exacerbation or injury. 10-Not Attempted due to Environmental Limitations-(lack of equipment, weather restraints, etc.). 88-Not Attempted due to Medical Conditions or Safety Concerns. Roll Left & Right (QC): 6 Lying to Sitting/Side of Bed(Q: 6 Sit to Stand (QC): 4 Chair/Ttx-fr-Rmbvq Xfer(QC): 4 Weight Bearing Right Lower Extremity: Right Non Weight Bearing Left Lower Extremity: Left Full Weight Bearing Wheelchair Training Does the Pt Use a Wheelchair?: Yes Wheel 50 ft with 2 turns (QC): 4 Wheel 150 ft (QC): 4 Type of Wheelchair: Manual leg rest adjusted longer as pt c/o her leg keeps falling off the rest. pt. was instructed in braking, use of wheels to propel, tight turning and backing Exercises Supine Ex: Ankle pumps, Quad Set, Glut sets, Heel Slides, Short Arc Quads, Straight leg raise, Hip abd/add Supine Reps: 12 Treatments pt. instructed in safe SPT using FWW bed to w/c maintained NWB well. supine LE therex, w/c mob Assessment Current Status: Good Progress PT Short Term Goals Short Term Goals Time Frame: Jul 06, 2021 Roll Left & Right: 4 Sit to lyin Lying to sitting on side of be: 4 Sit to stand: 4 Chair/sua-qx-mqhaa transfer: 4 Toilet transfer: 4 Car transfer: 4 Walk 10 feet: 4 Walk 50 feet with two turns: 4 Walk 150 feet: 4 Walking 10ft on uneven surface: 4 1 step (curb): 2 Picking up objects: 2 Does pt use a wc or scooter: Yes Wheel 50ft w/2 turns: 4 Wheel 150 feet: 4 Type: Manual PT Nephrology Nurse Goals Nephrology Nurse Goals PT Prison Goals Time Frame: Jul 20, 2021 Roll Left & Right (QC): 6 Sit to Lying (QC): 6 Lying-Sitting on Side/Bed(QC): 6 Sit to Stand (QC): 6 Chair/Yki-uh-Nulcl Xfer(QC): 6 Toilet Transfer (QC): 6 Car Transfer (QC): 6 Does the Patient Walk: Yes (Knee Scooter) Walk 10 feet (QC): 6 Walk 50ft with 2 Turns (QC): 6 Walk 150 ft (QC): 6 Walking 10ft on Uneven Surface: 6 1 Step (curb) (QC): 6 4 Steps (QC): 88 12 Steps (QC): 88 Picking up an Object (QC): 2 Does the Pt use WC or Scooter?: Yes Wheel 50 feet with 2 turns (QC: 6 Type: Manual Wheel 150 feet: 6 Type: Manual PT Plan Treatment/Plan Treatment Plan: Continue Plan of Care Treatment Plan: Bed Mobility, Concurrent Therapy, Education, Functional Activity Dallin, Functional Strength, Group Therapy, Gait, Safety, Therapeutic Exercise, Transfers Treatment Duration: Jul 20, 2021 Frequency: At least 5 of 7 days/Wk (IRF) Estimated Hrs Per Day: 1.5 hours per day Patient and/or Family Agrees t: Yes Safety Risks/Education Patient Education: Transfer Techniques, Correct Positioning, W/C Management, Safety Issues Teaching Recipient: Patient Teaching Methods: Demonstration, Discussion Response to Teaching: Verbalize Understanding, Return Demonstration, Reinforcement Needed Time/GCodes Time In: 750 Time Out: 830 Total Billed Treatment Time: 40 Total Billed Treatment 1,EX15m,FA15m,WC15m RADHA LYNN SAND CUTTER OPERATOR Jun 23, 2021 08:59
[2021-06-23] MEDS ORDERED: NON-FORMULARY MEDICATION 1 EA EA (Multivitamin 1 EACH) PO SCH (09:00)
[2021-06-23] MEDS ORDERED: FUROSEMIDE 40 MG (LASIX) TAB PO SCH (09:00)
[2021-06-23] MEDS ORDERED: NON-FORMULARY MEDICATION 1 EA EA (Levothyroxine Sodium 137 MCG) PO SCH (09:00)
[2021-06-23] MEDS: polyethylene glycoL POWDER 17 GM (MIRALAX) PACK PO SCH ×3 (09:01→21:03)
[2021-06-23] MEDS: FUROSEMIDE 40 MG (LASIX) TAB PO SCH ×2 (09:07→14:43)
[2021-06-23] MEDS: BISACODYL 10 MG SUPP (DULCOLAX) PR PRN (10:59)
[2021-06-23] MEDS ORDERED: HYDROcodone/APAP 5 MG/325 MG (LORTAB) TAB ONE (11:04)
[2021-06-23] MEDS ORDERED: HYDROcodone/APAP 5 MG/325 MG (LORTAB) TAB PO ONE (11:15)
[2021-06-23] MEDS: ENOXAPARIN 40 MG/0.4 ML (LOVENOX) SYR SC SCH (11:54)
[2021-06-23] MEDS ORDERED: MAGNESIUM CITRATE 300 ML BTL PO ONE (12:30)
[2021-06-23] MEDS: SPIRONOLACTONE 25 MG (ALDACTONE) TAB PO SCH (13:32)
[2021-06-23] MEDS: CALCIUM CARBONATE 500 MG (TUMS) TAB.CHEW PO PRN (14:31)
[2021-06-23 20:00] VITALS: BP 137/62
[2021-06-23] MEDS: LORATADINE (CLARITIN) 10 MG TAB PO SCH (21:01)
[2021-06-23] MEDS: diphenhydrAMINE 25 MG TAB (BENADRYL) PO SCH (21:01)
[2021-06-24] MEDS: rOPINIRole 1 MG (REQUIP) TABLET PO SCH ×3 (06:43→20:39)
[2021-06-24] MEDS: LEVOTHYROXINE 112 MCG (LEVOTHROID) TAB PO SCH (06:43)
[2021-06-24] MEDS: LEVOTHYROXINE 25 MCG (LEVOTHROID) TAB PO SCH (06:43)
[2021-06-24 07:18] VITALS: BP 147/65
[2021-06-24] MEDS: TRIAMTERENE/HCTZ 75-50 (MAXZIDE,DYAZIDE) TABLET PO SCH (07:46)
[2021-06-24] MEDS: DOCUSATE SODIUM 100 MG (COLACE) CAP PO SCH ×2 (07:46→20:39)
[2021-06-24] MEDS: SENNA W/DOCUSATE (SENOKOT S) TABLET PO SCH ×2 (07:46→20:39)
[2021-06-24] MEDS: amLODIPine 2.5MG (NORVASC) TAB PO SCH (07:46)
[2021-06-24] MEDS: KCL 20 MEQ TAB (K-DUR) PO SCH ×3 (07:46→17:12)
[2021-06-24] MEDS: SPIRONOLACTONE 25 MG (ALDACTONE) TAB PO SCH (07:46)
--- NOTE | 2021-06-24 07:47 | PM&R Progress Note ---
Subjective HPI/CC On Admission Date Seen by Provider: Jun 24, 2021 Time Seen by Provider: 10:00 Subjective/Events-last exam 06/24/2021: Patient doing well Meloxicam will be changed to twice a day schedule instead of as needed Talked about spironolactone and the fact that we started and it was not on her list Check meds and labs No falls 06/23/2021: Patient doing much better Pain is well controlled now that we changed the hydrocodone to 10/325 Bowels are moving yet so I added suppositories and mag citrate Potassium supplement will be increased to 40 mEq twice daily She reportedly takes spironolactone but I did not see that on her home medication list we will start 25 mg daily to protect potassium Review of Systems General: Fatigue, Malaise Objective Exam Vital Signs Vital Signs Date Time Temp Pulse Resp B/P (MAP) Pulse Ox O2 Delivery O2 Flow Rate FiO2 06/24/21 09:00 Room Air 06/24/21 07:18 36.3 75 20 147/65 (92) 96 Capillary Refill : General Appearance: No Apparent Distress, WD/WN, Chronically ill HEENT: PERRL/EOMI, Normal ENT Inspection, Pharynx Normal Neck: Full Range of Motion, Normal Inspection, Non Tender, Supple, Carotid Bruit Respiratory: Chest Non Tender, Lungs Clear, Normal Breath Sounds, No Accessory Muscle Use, No Respiratory Distress Cardiovascular: Regular Rate, Rhythm, No Edema, No Gallop, No JVD, No Murmur, Normal Peripheral Pulses Gastrointestinal: Normal Bowel Sounds, No Organomegaly, No Pulsatile Mass, Non Tender, Soft Back: Normal Inspection, No CVA Tenderness, No Vertebral Tenderness Extremity: Normal Capillary Refill, Normal Inspection, Normal Range of Motion, Non Tender, No Calf Tenderness, No Pedal Edema Neurologic/Psychiatric: Alert, Oriented x3, No Motor/Sensory Deficits, Normal Mood/Affect, boat loader helper II-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 FIM Transfers Therapy Code Descriptions/Definitions Functional [place] Measure: 0=Not Assessed/NA 4=Minimal Assistance 1=Total Assistance 5=Supervision or Setup 2=Maximal Assistance 6=Modified [place] 3=Moderate Assistance 7=Complete IndependenceSCALE: Activities may be completed with or without assistive devices. 4-Jaumpquhyg-mllxjev completes the activity by him/herself with no assistance from a helper. 5-Set-up or Clean-up Assistance-helper sets up or cleans up; patient completes activity. [place] assists only prior to or following the activity. 4-Supervision or Touching Assistance-helper provides verbal cues and/or touching/steadying and/or contact guard assistance as patient completes activity. Assistance may be provided throughout the activity or intermittently. 3-Partial/Moderate Assistance-helper does LESS THAN HALF the effort. [place] lifts, holds or supports trunk or limbs, but provides less than half the effort. 2-Substantial/Maximal Assistance-helper does MORE THAN HALF the effort. [place] lifts or holds trunk or limbs and provides more than half the effort. 1-Moovlqikb-tpupvw does ALL the effort. Patient does none of the effort to complete the activity. Or, the assistance of 2 or more helpers is required for the patient to complete the activity. If activity was not attempted, code reason: 7-Patient Refused. 9-Not Applicable-not attempted and the patient did not perform the activity before the current illness, exacerbation or injury. 10-Not Attempted due to Environmental Limitations-(lack of equipment, weather restraints, etc.). 88-Not Attempted due to Medical Conditions or Safety Concerns. Roll Left to Right (QC): 6 Sit to Lying (QC): 4 Sit to Stand (QC): 4 Chair/Jzq-bp-Tyghb Xfer(QC): 4 Car Transfer (QC): 2 Gait Training Does the Patient Walk?: Yes Distance: 50 Walk 10 feet (QC): 4 Walk 50 ft with 2 Turns(QC): 4 Walk 150 ft (QC): 3 Walking 10ft/uneven surface-QC: 3 Wheelchair Training Does the Pt Use a Wheelchair?: Yes Wheel 50 ft with 2 turns (QC): 4 Wheel 150 ft (QC): 4 Type of Wheelchair: Manual Stair Training 1 Step (curb) (QC): 88 4 Steps (QC): 88 12 Steps (QC): 88 Balance Picking up an Object (QC): 1 (Patient attemted and unable to perform safely) ADL-Treatment Eating (QC): 6 (Per pt report.) Oral Hygiene (QC): 4 (CGA standing at sink with knee scooter) Shower/Bathe Self (QC): 4 (SBA, pt able to wash/dry all parts seated on SC.) Upper Body Dressing (QC): 3 (Min A doffing jacket. Pt able to doff/don casing puller shirt with set up.) Lower Body Dressing (QC): 1 (assist x2 for pant hike.) On/Off Footwear (QC): 3 (Mod A. Pt able to doff footwear on L foot, assist to don shoe L foot. ) Toileting Hygiene (QC): 1 (assist x2 required.) Assessment/Plan Assessment and Plan Assess & Plan/Chief Complaint Assessment: Right pes planovalgus deformity surgical resolution DVT prophylaxis with Lovenox Hypertension Hyperlipidemia Thyroid disease Postoperative constipation Hypokalemia Plan: Home meds Rehab protocol Pain control 06/23/2021: Pain control Increase potassium Add Aldactone 06/24/21: Restarted Aldactone Continue increase potassium supplement (1) Pes planovalgus (2) Hypertension (3) Restless leg syndrome (4) Neuropathy (5) Thyroid disease (6) Constipation DIAZ KELLY DO Jun 24, 2021 07:47
[2021-06-24] MEDS: FUROSEMIDE 40 MG (LASIX) TAB PO SCH ×2 (07:58→15:10)
[2021-06-24] MEDS: FLUTICASONE NASAL SPRAY (FLONASE) 16 GM BTL NS SCH ×2 (07:58→20:42)
[2021-06-24] MEDS: polyethylene glycoL POWDER 17 GM (MIRALAX) PACK PO SCH ×2 (07:58→20:44)
[2021-06-24] MEDS: ENOXAPARIN 40 MG/0.4 ML (LOVENOX) SYR SC SCH (11:37)
[2021-06-24] MEDS ORDERED: PATIENT MAY USE OWN MED,SINGLE MED PO SCH (12:30)
[2021-06-24] MEDS ORDERED: LEVOCETIRIZINE 5 MG TAB (XYZAL) NON-FORMULARY PO SCH (15:12)
[2021-06-24 19:55] VITALS: BP 128/59
[2021-06-24] MEDS: MELOXICAM 7.5 MG (MOBIC) TABLET PO SCH (20:40)
[2021-06-24] MEDS: MULTIVIT W/MINERALS TAB (THERAGRAN M) PO SCH (20:40)
[2021-06-24] MEDS: LEVOCETIRIZINE 5 MG TAB (XYZAL) NON-FORMULARY PO SCH (20:40)
[2021-06-24] MEDS: diphenhydrAMINE 25 MG TAB (BENADRYL) PO SCH (20:40)
[2021-06-25] MEDS: CALCIUM CARBONATE 500 MG (TUMS) TAB.CHEW PO PRN (02:56)
[2021-06-25] MEDS: rOPINIRole 1 MG (REQUIP) TABLET PO SCH ×3 (04:22→20:39)
[2021-06-25] MEDS: LEVOTHYROXINE 25 MCG (LEVOTHROID) TAB PO SCH (04:22)
[2021-06-25] MEDS: LEVOTHYROXINE 112 MCG (LEVOTHROID) TAB PO SCH (04:22)
[2021-06-25 05:15] LABS: BASOPHILS % (AUTO) 1 % (0-10); EOSINOPHILS # (AUTO) 0.1 10^3/uL (0.0-0.3); EOSINOPHILS % (AUTO) 2 % (0-10); HEMATOCRIT 33 % (35-52); HEMOGLOBIN 11.1 g/dL (11.5-16.0); LYMPHOCYTES % (AUTO) 18 % (12-44); MEAN CORPUSCULAR HEMOGLOBIN 31 pg (25-34); MEAN CORPUSCULAR HGB CONC 33 g/dL (32-36); MEAN CORPUSCULAR VOLUME 92 fL (80-99); MEAN PLATELET VOLUME 9.6 fL (9.0-12.2); MONOCYTES # (AUTO) 0.6 10^3/uL (0.0-1.0); MONOCYTES % (AUTO) 11 % (0-12); NEUTROPHILS # (AUTO) 3.8 10^3/uL (1.8-7.8); NEUTROPHILS % (AUTO) 67 % (42-75); PLATELET COUNT 211 10^3/uL (130-400); WHITE BLOOD COUNT 5.7 10^3/uL (4.3-11.0)
--- NOTE | 2021-06-25 05:26 | PM&R Progress Note ---
Subjective HPI/CC On Admission Date Seen by Provider: Jun 25, 2021 Time Seen by Provider: 11:00 Subjective/Events-last exam 06/25/2021: Pt is doing a lot better Pain management is successful Potassium is 3.7 on 40 milliequivalents TID in addition to Aldactone Baclofen will be ordered, she has done well on that before due to restless leg syndrome at night Voltaren gel will be placed on hip pain 06/24/2021: Patient doing well Meloxicam will be changed to twice a day schedule instead of as needed Talked about spironolactone and the fact that we started and it was not on her list Check meds and labs No falls 06/23/2021: Patient doing much better Pain is well controlled now that we changed the hydrocodone to 10/325 Bowels are moving yet so I added suppositories and mag citrate Potassium supplement will be increased to 40 mEq twice daily She reportedly takes spironolactone but I did not see that on her home medication list we will start 25 mg daily to protect potassium Review of Systems General: Fatigue Musculoskeletal: leg pain, foot pain Objective Exam Vital Signs Vital Signs Date Time Temp Pulse Resp B/P (MAP) Pulse Ox O2 Delivery O2 Flow Rate FiO2 06/25/21 20:41 Room Air 06/25/21 20:28 36.6 80 18 119/58 (78) 98 Capillary Refill : General Appearance: No Apparent Distress, WD/WN, Chronically ill HEENT: PERRL/EOMI, Normal ENT Inspection, Pharynx Normal Neck: Full Range of Motion, Normal Inspection, Non Tender, Supple, Carotid Bruit Respiratory: Chest Non Tender, Lungs Clear, Normal Breath Sounds, No Accessory Muscle Use, No Respiratory Distress Cardiovascular: Regular Rate, Rhythm, No Edema, No Gallop, No JVD, No Murmur, Normal Peripheral Pulses Gastrointestinal: Normal Bowel Sounds, No Organomegaly, No Pulsatile Mass, Non Tender, Soft Back: Normal Inspection, No CVA Tenderness, No Vertebral Tenderness Extremity: Normal Capillary Refill, Normal Inspection, Normal Range of Motion, Non Tender, No Calf Tenderness, No Pedal Edema Neurologic/Psychiatric: Alert, Oriented x3, No Motor/Sensory Deficits, Normal Mood/Affect, loans consultant II-XII Norm as Tested, Other (Unable to bear weight on right foot) Skin: Normal Color, Warm/Dry Lymphatic: No Adenopathy Results/Procedures Lab Laboratory Tests 06/25/21 05:08 Patient resulted labs reviewed. FIM Transfers Therapy Code Descriptions/Definitions Functional [place] Measure: 0=Not Assessed/NA 4=Minimal Assistance 1=Total Assistance 5=Supervision or Setup 2=Maximal Assistance 6=Modified [place] 3=Moderate Assistance 7=Complete IndependenceSCALE: Activities may be completed with or without assistive devices. 6-Qdervsnftw-mvfjfgg completes the activity by him/herself with no assistance from a helper. 5-Set-up or Clean-up Assistance-helper sets up or cleans up; patient completes activity. [place] assists only prior to or following the activity. 4-Supervision or Touching Assistance-helper provides verbal cues and/or touching/steadying and/or contact guard assistance as patient completes activ ity. Assistance may be provided throughout the activity or intermittently. 3-Partial/Moderate Assistance-helper does LESS THAN HALF the effort. [place] lifts, holds or supports trunk or limbs, but provides less than half the effort. 2-Substantial/Maximal Assistance-helper does MORE THAN HALF the effort. [place] lifts or holds trunk or limbs and provides more than half the effort. 5-Txcwaagax-dhjbdi does ALL the effort. Patient does none of the effort to complete the activity. Or, the assistance of 2 or more helpers is required for the patient to complete the activity. If activity was not attempted, code reason: 7-Patient Refused. 9-Not Applicable-not attempted and the patient did not perform the activity before the current illness, exacerbation or injury. 10-Not Attempted due to Environmental Limitations-(lack of equipment, weather restraints, etc.). 88-Not Attempted due to Medical Conditions or Safety Concerns. Roll Left to Right (QC): 6 Sit to Lying (QC): 4 Sit to Stand (QC): 4 Chair/Gnc-fu-Mvqww Xfer(QC): 4 Car Transfer (QC): 2 Gait Training Does the Patient Walk?: Yes Distance: 50 Walk 10 feet (QC): 4 Walk 50 ft with 2 Turns(QC): 4 Walk 150 ft (QC): 3 Walking 10ft/uneven surface-QC: 3 Wheelchair Training Does the Pt Use a Wheelchair?: Yes Wheel 50 ft with 2 turns (QC): 4 Wheel 150 ft (QC): 4 Type of Wheelchair: Manual Stair Training 1 Step (curb) (QC): 88 4 Steps (QC): 88 12 Steps (QC): 88 Balance Picking up an Object (QC): 1 (Patient attemted and unable to perform safely) ADL-Treatment Eating (QC): 6 (Per pt report.) Oral Hygiene (QC): 4 (CGA standing at sink with knee scooter) Shower/Bathe Self (QC): 4 (SBA, pt able to wash/dry all parts seated on SC.) Upper Body Dressing (QC): 3 (Min A doffing jacket. Pt able to doff/don warehouse order puller shirt with set up.) Lower Body Dressing (QC): 1 (assist x2 for pant hike.) On/Off Footwear (QC): 3 (Mod A. Pt able to doff footwear on L foot, assist to don shoe L foot. ) Toileting Hygiene (QC): 1 (assist x2 required.) Assessment/Plan Assessment and Plan Assess & Plan/Chief Complaint Assessment: Right pes planovalgus deformity surgical resolution DVT prophylaxis with Lovenox Hypertension Hyperlipidemia Thyroid disease Postoperative constipation Hypokalemia Plan: Home meds Rehab protocol Pain control 06/23/2021: Pain control Increase potassium Add Aldactone 06/24/21: Restarted Aldactone Continue increase potassium supplement 06/25/2021: Maintain Aldactone Continue potassium supplement (1) Pes planovalgus (2) Hypertension (3) Restless leg syndrome (4) Neuropathy (5) Thyroid disease (6) Constipation DIAZ KELLY DO Jun 25, 2021 05:26
[2021-06-25 05:27] LABS: ALBUMIN 3.6 GM/DL (3.2-4.5); POTASSIUM 3.7 MMOL/L (3.6-5.0)
[2021-06-25 05:28] LABS: CALCIUM 9.3 MG/DL (8.5-10.1)
[2021-06-25 05:29] LABS: TOTAL PROTEIN 6.3 GM/DL (6.4-8.2)
[2021-06-25 05:31] LABS: BILIRUBIN,TOTAL 0.7 MG/DL (0.1-1.0)
[2021-06-25 05:33] LABS: CREATININE SERUM 0.92 MG/DL (0.60-1.30)
[2021-06-25 05:35] LABS: MAGNESIUM 2.2 MG/DL (1.6-2.4)
[2021-06-25] MEDS: DOCUSATE SODIUM 100 MG (COLACE) CAP PO SCH ×2 (07:50→20:49)
[2021-06-25] MEDS: TRIAMTERENE/HCTZ 75-50 (MAXZIDE,DYAZIDE) TABLET PO SCH (07:50)
[2021-06-25] MEDS: SPIRONOLACTONE 25 MG (ALDACTONE) TAB PO SCH (07:50)
[2021-06-25] MEDS: SENNA W/DOCUSATE (SENOKOT S) TABLET PO SCH ×2 (07:50→20:50)
[2021-06-25] MEDS: MELOXICAM 7.5 MG (MOBIC) TABLET PO SCH ×2 (07:51→20:39)
[2021-06-25] MEDS: KCL 20 MEQ TAB (K-DUR) PO SCH ×3 (07:51→17:58)
[2021-06-25] MEDS: FUROSEMIDE 40 MG (LASIX) TAB PO SCH ×2 (07:51→15:36)
[2021-06-25] MEDS: amLODIPine 2.5MG (NORVASC) TAB PO SCH (07:51)
[2021-06-25] MEDS: FLUTICASONE NASAL SPRAY (FLONASE) 16 GM BTL NS SCH ×2 (07:52→20:42)
[2021-06-25 07:56] VITALS: BP 144/64
--- NOTE | 2021-06-25 09:55 | Physical Therapy Daily Note ---
PT Daily Note-Current Subjective Patient in WC pre tx, agrees to PT, has 3/10 pain in right foot. Appearance Patient in in room post tx with daughter Mental Status Patient Orientation: Person, Place, Situation Transfers SCALE: Activities may be completed with or without assistive devices. 7-Wnrzgjmhjq-elqgvme completes the activity by him/herself with no assistance from a helper. 5-Set-up or Clean-up Assistance-helper sets up or cleans up; patient completes activity. [place] assists only prior to or following the activity. 4-Supervision or Touching Assistance-helper provides verbal cues and/or touching/steadying and/or contact guard assistance as patient completes activity. Assistance may be provided throughout the activity or intermittently. 3-Partial/Moderate Assistance-helper does LESS THAN HALF the effort. [place] lifts, holds or supports trunk or limbs, but provides less than half the effort. 2-Substantial/Maximal Assistance-helper does MORE THAN HALF the effort. [place] lifts or holds trunk or limbs and provides more than half the effort. 6-Bewfcakyi-qpsqrr does ALL the effort. Patient does none of the effort to complete the activity. Or, the assistance of 2 or more helpers is required for the patient to complete the activity. If activity was not attempted, code reason: 7-Patient Refused. 9-Not Applicable-not attempted and the patient did not perform the activity be fore the current illness, exacerbation or injury. 10-Not Attempted due to Environmental Limitations-(lack of equipment, weather restraints, etc.). 88-Not Attempted due to Medical Conditions or Safety Concerns. Sit to Stand (QC): 4 Chair/Yvd-kh-Bfywz Xfer(QC): 4 CGA for transfers but she does need cues for positioning and safety Weight Bearing Right Lower Extremity: Right Non Weight Bearing Left Lower Extremity: Left Full Weight Bearing Gait Training Distance: 5', 10'x2 Walk 10 feet (QC): 4 Gait Persons Needed: 1 Gait Assistive Device: FWW follow, patient is able to bear weight through her arms and hop without bearing weight on her right foot but only for short distances. Patient also used her knee scooter 120' CGA, patient is a little unsteady with this needs steadying assist Wheelchair Training Does the Pt Use a Wheelchair?: Yes Wheel 50 ft with 2 turns (QC): 4 Type of Wheelchair: Manual 120', SBA Exercises NuStep Minutes: 15 NuStep Workload: 5 Treatments transfers, ambulation, WC mobiltiy, functional strengthening Assessment Current Status: Fair Progress improving ambulation PT Short Term Goals Short Term Goals Time Frame: Jul 06, 2021 Roll Left & Right: 4 Sit to lyin Lying to sitting on side of be: 4 Sit to stand: 4 Chair/ujp-qg-nsshc transfer: 4 Toilet transfer: 4 Car transfer: 4 Walk 10 feet: 4 Walk 50 feet with two turns: 4 Walk 150 feet: 4 Walking 10ft on uneven surface: 4 1 step (curb): 2 Picking up objects: 2 Does pt use a wc or scooter: Yes Wheel 50ft w/2 turns: 4 Wheel 150 feet: 4 Type: Manual PT Cardiac Nurse Practitioner Goals Cardiac Nurse Practitioner Goals PT Cardiac Nurse Practitioner Goals Time Frame: Jul 20, 2021 Roll Left & Right (QC): 6 Sit to Lying (QC): 6 Lying-Sitting on Side/Bed(QC): 6 Sit to Stand (QC): 6 Chair/Ajy-gr-Cokgx Xfer(QC): 6 Toilet Transfer (QC): 6 Car Transfer (QC): 6 Does the Patient Walk: Yes (Knee Scooter) Walk 10 feet (QC): 6 Walk 50ft with 2 Turns (QC): 6 Walk 150 ft (QC): 6 Walking 10ft on Uneven Surface: 6 1 Step (curb) (QC): 6 4 Steps (QC): 88 12 Steps (QC): 88 Picking up an Object (QC): 2 Does the Pt use WC or Scooter?: Yes Wheel 50 feet with 2 turns (QC: 6 Type: Manual Wheel 150 feet: 6 Type: Manual PT Plan Problem List Problem List: Activity Tolerance, Functional Strength, Safety, Balance, Gait, Transfer, Bed Mobility, ROM Treatment/Plan Treatment Plan: Continue Plan of Care Treatment Plan: Bed Mobility, Concurrent Therapy, Education, Functional Activity Dallin, Functional Strength, Group Therapy, Gait, Safety, Therapeutic Exercise, Transfers Treatment Duration: Jul 20, 2021 Frequency: At least 5 of 7 days/Wk (IRF) Estimated Hrs Per Day: 1.5 hours per day Patient and/or Family Agrees t: Yes Safety Risks/Education Patient Education: Gait Training, Transfer Techniques, Reviewed Precautions, Correct Positioning, Safety Issues Teaching Recipient: Patient Teaching Methods: Demonstration, Discussion Response to Teaching: Reinforcement Needed Time/GCodes Time In: 0900 Time Out: 1000 Total Billed Treatment Time: 60 Total Billed Treatment 1 visit EX 15' FA 45' PA WHITE PT Jun 25, 2021 09:55
[2021-06-25] MEDS: polyethylene glycoL POWDER 17 GM (MIRALAX) PACK PO SCH ×2 (10:10→20:49)
--- NOTE | 2021-06-25 11:56 | Occupational Ther Daily Note ---
OT Current Status-Daily Note Subjective Pt alert, sitting in w/c. Pt moves around independently while in w/c. Pt agrees to therapy. Mental Status/Objective Patient Orientation: Person, Place, Time, Situation ADL-Treatment Pt agrees to shower. Pt requires min A for toilet transfer. Pt attempts to manipulate clothing over hips then requires assist to thoroughly cleanse after BM. Pt used FWW and hopped from toilet to shower with min A. Pt then stood stabilizing with grabbars while assist given to cleanse buttocks. Seated on shower bench, pt cleansed all other areas by self. Independent with upper body dressing. Max A for lower body dressing. Independent with oral care. Therapy Code Descriptions/Definitions Functional [place] Measure: 0=Not Assessed/NA 4=Minimal Assistance 1=Total Assistance 5=Supervision or Setup 2=Maximal Assistance 6=Modified [place] 3=Moderate Assistance 7=Complete IndependenceSCALE: Activities may be completed with or without assistive devices. 4-Jznrgeorcg-iwobtcn completes the activity by him/herself with no assistance from a helper. 5-Set-up or Clean-up Assistance-helper sets up or cleans up; patient completes activity. [place] assists only prior to or following the activity. 4-Supervision or Touching Assistance-helper provides verbal cues and/or touching/steadying and/or contact guard assistance as patient completes activity. Assistance may be provided throughout the activity or intermittently. 3-Partial/Moderate Assistance-helper does LESS THAN HALF the effort. [place] lifts, holds or supports trunk or limbs, but provides less than half the effort. 2-Substantial/Maximal Assistance-helper does MORE THAN HALF the effort. [place] lifts or holds trunk or limbs and provides more than half the effort. 7-Ovyfqseed-cuztqs does ALL the effort. Patient does none of the effort to complete the activity. Or, the assistance of 2 or more helpers is required for the patient to complete the activity. If activity was not attempted, code reason: 7-Patient Refused. 9-Not Applicable-not attempted and the patient did not perform the activity before the current illness, exacerbation or injury. 10-Not Attempted due to Environmental Limitations-(lack of equipment, weather restraints, etc.). 88-Not Attempted due to Medical Conditions or Safety Concerns. Eating (QC): 6 Oral Hygiene (QC): 6 Bathing Location: L Arm, R Arm, L Upper Leg, R Upper Leg, L Lower Leg (including foot), R Lower Leg (including foot), Chest, Abdomen, Perineal Area Shower/Bathe Self (QC): 3 Upper Body Dressing (QC): 6 Lower Body Dressing (QC): 2 On/Off Footwear: 2 (Assist to doff/don compression stocking, assist to don shoe. Pt able to doff regular sock.) Toileting Hygiene (QC): 2 Other Treatment Pt propelled w/c to/from therapy gym. Arm bike completed at 20 chavarria resistance for 15 min with 1 recovery break to increase strength and activity tolerance for daily functional tasks. After session, pt sitting in recliner with call light/phone in reach. All needs met. OT Short Term Goals Short Term Goals Time Frame: Jul 13, 2021 Shower/bathe self: 3 Lower body dressin Putting on/taking off footwear: 3 OT Operations Research Manager Goals Operations Research Manager Goals Time Frame: Jul 20, 2021 Eating (QC): 6 Oral Hygiene (QC): 6 Toileting Hygiene (QC): 6 Shower/Bathe Self (QC): 6 Upper Body Dressing (QC): 6 Lower Body Dressing (QC): 6 On/Off Footwear (QC): 6 Additional Goals: 1-Demonstrate ADL Tasks, 2-Verbalize Understanding, 3- ImproveStrength/Dallin 1=Demonstrate adherence to instructed precautions during ADL tasks. 2=Patient will verbalize/demonstrate understanding of assistive devices/modifica tions for ADL. 3=Patient will improve strength/tolerance for activity to enable patient to perform ADL's. OT Education/Plan Problem List/Assessment Assessment: Decreased Activ Tolerance, Decreased UE Strength, Impaired Funct Balance, Impaired Self-Care Skills Discharge Recommendations Plan/Recommendations: Continue POC Treatment Plan/Plan of Care Patient would benefit from OT for education, treatment and training to promote independence in ADL's, mobility, safety and/or upper extremity function for ADL's. Plan of Care: ADL Retraining, Functional Mobility, Group Exercise/Act as Ind, UE Funct Exercise/Act Treatment Duration: Jul 20, 2021 Frequency: At least 5 of 7 days/Wk (IRF) Estimated Hrs Per Day: 1.5 hours per day Agreement: Yes Rehab Potential: Fair Time/GCodes Start Time: 10:30 Stop Time: 12:00 Total Time Billed (hr/min): 90 Billed Treatment Time 1 visit-ADL 4 (60 min) FA 1 (15 min) EX 1 (15 min) REGLA DOUGLAS Jun 25, 2021 11:56
[2021-06-25] MEDS: ENOXAPARIN 40 MG/0.4 ML (LOVENOX) SYR SC SCH (13:07)
--- NOTE | 2021-06-25 13:43 | Physical Therapy Daily Note ---
PT Daily Note-Current Subjective Patient on toilet pre tx, agrees to PT, has 6/10 pain in right leg. Appearance Patient in WC in room post tx at [facility], has nurse call. Mental Status Patient Orientation: Person, Place, Situation Transfers SCALE: Activities may be completed with or without assistive devices. 3-Maevngoipu-zetvbcc completes the activity by him/herself with no assistance from a helper. 5-Set-up or Clean-up Assistance-helper sets up or cleans up; patient completes activity. [place] assists only prior to or following the activity. 4-Supervision or Touching Assistance-helper provides verbal cues and/or touching/steadying and/or contact guard assistance as patient completes activity. Assistance may be provided throughout the activity or intermittently. 3-Partial/Moderate Assistance-helper does LESS THAN HALF the effort. [place] lifts, holds or supports trunk or limbs, but provides less than half the effort. 2-Substantial/Maximal Assistance-helper does MORE THAN HALF the effort. [place] lifts or holds trunk or limbs and provides more than half the effort. 1-Nwvlqaqjg-japkql does ALL the effort. Patient does none of the effort to complete the activity. Or, the assistance of 2 or more helpers is required for the patient to complete the activity. If activity was not attempted, code reason: 7-Patient Refused. 9-Not Applicable-not attempted and the patient did not perform the activity before the current illness, exacerbation or injury. 10-Not Attempted due to Environmental Limitations-(lack of equipment, weather restraints, etc.). 88-Not Attempted due to Medical Conditions or Safety Concerns. Sit to Stand (QC): 4 Chair/Kns-tq-Plqpv Xfer(QC): 4 Patient needs some assist getting her pants up after standing from the toilet, CGA for transfer to . Weight Bearing Right Lower Extremity: Right Non Weight Bearing Left Lower Extremity: Left Full Weight Bearing Wheelchair Training Does the Pt Use a Wheelchair?: Yes Wheel 50 ft with 2 turns (QC): 4 Type of Wheelchair: Manual 120'x2 Exercises Standing: Hip Abduction, Hamstring curls, Marching Standing Reps: 20 (RLE only, open chain) LAQ alternating for 5 min Treatments LE strengthening, toileting, WC mobility Assessment Current Status: Fair Progress improving transfers PT Short Term Goals Short Term Goals Time Frame: Jul 06, 2021 Roll Left & Right: 4 Sit to lyin Lying to sitting on side of be: 4 Sit to stand: 4 Chair/gfl-uv-klhkn transfer: 4 Toilet transfer: 4 Car transfer: 4 Walk 10 feet: 4 Walk 50 feet with two turns: 4 Walk 150 feet: 4 Walking 10ft on uneven surface: 4 1 step (curb): 2 Picking up objects: 2 Does pt use a wc or scooter: Yes Wheel 50ft w/2 turns: 4 Wheel 150 feet: 4 Type: Manual PT Nursing Home Goals Marshmallow Maker Goals PT Nursing Home Goals Time Frame: Jul 20, 2021 Roll Left & Right (QC): 6 Sit to Lying (QC): 6 Lying-Sitting on Side/Bed(QC): 6 Sit to Stand (QC): 6 Chair/Zlt-tv-Vachb Xfer(QC): 6 Toilet Transfer (QC): 6 Car Transfer (QC): 6 Does the Patient Walk: Yes (Knee Scooter) Walk 10 feet (QC): 6 Walk 50ft with 2 Turns (QC): 6 Walk 150 ft (QC): 6 Walking 10ft on Uneven Surface: 6 1 Step (curb) (QC): 6 4 Steps (QC): 88 12 Steps (QC): 88 Picking up an Object (QC): 2 Does the Pt use WC or Scooter?: Yes Wheel 50 feet with 2 turns (QC: 6 Type: Manual Wheel 150 feet: 6 Type: Manual PT Plan Problem List Problem List: Activity Tolerance, Functional Strength, Safety, Balance, Gait, Transfer, Bed Mobility, ROM Treatment/Plan Treatment Plan: Continue Plan of Care Treatment Plan: Bed Mobility, Concurrent Therapy, Education, Functional Activity Dallin, Functional Strength, Group Therapy, Gait, Safety, Therapeutic Exercise, Transfers Treatment Duration: Jul 20, 2021 Frequency: At least 5 of 7 days/Wk (IRF) Estimated Hrs Per Day: 1.5 hours per day Patient and/or Family Agrees t: Yes Safety Risks/Education Patient Education: Transfer Techniques, Reviewed Precautions, Correct Positioning, Safety Issues Teaching Recipient: Patient Teaching Methods: Demonstration, Discussion Response to Teaching: Reinforcement Needed Time/GCodes Time In: 1315 Time Out: 1345 Total Billed Treatment Time: 30 Total Billed Treatment 1 visit EX 15' FA 15' PA WHITE PT Jun 25, 2021 13:43
[2021-06-25] MEDS: BACLOFEN 10 MG (LIORESAL) TAB PO PRN (17:58)
[2021-06-25 20:28] VITALS: BP 119/58
[2021-06-25] MEDS: diphenhydrAMINE 25 MG TAB (BENADRYL) PO SCH (20:39)
[2021-06-25] MEDS: MULTIVIT W/MINERALS TAB (THERAGRAN M) PO SCH (20:39)
[2021-06-25] MEDS: LEVOCETIRIZINE 5 MG TAB (XYZAL) NON-FORMULARY PO SCH (20:42)
[2021-06-25] MEDS: DICLOFENAC 1% GEL 100 GM (VOLTAREN) TUBE TOP SCH (20:45)
[2021-06-26] MEDS: diphenhydrAMINE 25 MG TAB (BENADRYL) PO PRN (00:54)
[2021-06-26] MEDS: rOPINIRole 1 MG (REQUIP) TABLET PO SCH ×3 (05:37→21:01)
[2021-06-26] MEDS: LEVOTHYROXINE 112 MCG (LEVOTHROID) TAB PO SCH (05:37)
[2021-06-26] MEDS: LEVOTHYROXINE 25 MCG (LEVOTHROID) TAB PO SCH (05:37)
--- NOTE | 2021-06-26 05:52 | PM&R Progress Note ---
Subjective HPI/CC On Admission Date Seen by Provider: Jun 26, 2021 Time Seen by Provider: 08:30 Subjective/Events-last exam 06/26/2021: Pt has multiple issues Wants Requip at 2 in the morning Right hip pain will prompt an x-ray and Dr. Anaya consult Checked meds and labs No falls 06/25/2021: Pt is doing a lot better Pain management is successful Potassium is 3.7 on 40 milliequivalents TID in addition to Aldactone Baclofen will be ordered, she has done well on that before due to restless leg syndrome at night Voltaren gel will be placed on hip pain 06/24/2021: Patient doing well Meloxicam will be changed to twice a day schedule instead of as needed Talked about spironolactone and the fact that we started and it was not on her list Check meds and labs No falls 06/23/2021: Patient doing much better Pain is well controlled now that we changed the hydrocodone to 10/325 Bowels are moving yet so I added suppositories and mag citrate Potassium supplement will be increased to 40 mEq twice daily She reportedly takes spironolactone but I did not see that on her home medication list we will start 25 mg daily to protect potassium Review of Systems Musculoskeletal: back pain, hand pain, leg pain Objective Exam Vital Signs Vital Signs Date Time Temp Pulse Resp B/P (MAP) Pulse Ox O2 Delivery O2 Flow Rate FiO2 06/26/21 20:30 36.0 80 20 143/63 (89) 97 Room Air Capillary Refill : General Appearance: No Apparent Distress, WD/WN, Chronically ill HEENT: PERRL/EOMI, Normal ENT Inspection, Pharynx Normal Neck: Full Range of Motion, Normal Inspection, Non Tender, Supple, Carotid Bruit Respiratory: Chest Non Tender, Lungs Clear, Normal Breath Sounds, No Accessory Muscle Use, No Respiratory Distress Cardiovascular: Regular Rate, Rhythm, No Edema, No Gallop, No JVD, No Murmur, Normal Peripheral Pulses Gastrointestinal: Normal Bowel Sounds, No Organomegaly, No Pulsatile Mass, Non Tender, Soft Back: Normal Inspection, No CVA Tenderness, No Vertebral Tenderness Extremity: Normal Capillary Refill, Normal Inspection, Normal Range of Motion, Non Tender, No Calf Tenderness, No Pedal Edema Neurologic/Psychiatric: Alert, Oriented x3, No Motor/Sensory Deficits, Normal Mood/Affect, institutional commodity analyst II-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 FIM Transfers Therapy Code Descriptions/Definitions Functional [place] Measure: 0=Not Assessed/NA 4=Minimal Assistance 1=Total Assistance 5=Supervision or Setup 2=Maximal Assistance 6=Modified [place] 3=Moderate Assistance 7=Complete IndependenceSCALE: Activities may be completed with or without assistive devices. 2-Jvmknfbjou-fvjatlh completes the activity by him/herself with no assistance from a helper. 5-Set-up or Clean-up Assistance-helper sets up or cleans up; patient completes a ctivity. [place] assists only prior to or following the activity. 4-Supervision or Touching Assistance-helper provides verbal cues and/or touching/steadying and/or contact guard assistance as patient completes activity. Assistance may be provided throughout the activity or intermittently. 3-Partial/Moderate Assistance-helper does LESS THAN HALF the effort. [place] lifts, holds or supports trunk or limbs, but provides less than half the effort. 2-Substantial/Maximal Assistance-helper does MORE THAN HALF the effort. [place] lifts or holds trunk or limbs and provides more than half the effort. 2-Hxknungya-ufpjnf does ALL the effort. Patient does none of the effort to complete the activity. Or, the assistance of 2 or more helpers is required for the patient to complete the activity. If activity was not attempted, code reason: 7-Patient Refused. 9-Not Applicable-not attempted and the patient did not perform the activity before the current illness, exacerbation or injury. 10-Not Attempted due to Environmental Limitations-(lack of equipment, weather restraints, etc.). 88-Not Attempted due to Medical Conditions or Safety Concerns. Roll Left to Right (QC): 6 Sit to Lying (QC): 4 Sit to Stand (QC): 4 Chair/Wfe-lk-Nnfcg Xfer(QC): 4 Car Transfer (QC): 2 Gait Training Does the Patient Walk?: Yes Distance: 5', 10'x2 Walk 10 feet (QC): 4 Walk 50 ft with 2 Turns(QC): 4 Walk 150 ft (QC): 3 Walking 10ft/uneven surface-QC: 3 Gait Persons Needed: 1 Gait Assistive Device: FWW Wheelchair Training Does the Pt Use a Wheelchair?: Yes Wheel 50 ft with 2 turns (QC): 4 Wheel 150 ft (QC): 4 Type of Wheelchair: Manual Stair Training 1 Step (curb) (QC): 88 4 Steps (QC): 88 12 Steps (QC): 88 Balance Picking up an Object (QC): 1 (Patient attemted and unable to perform safely) ADL-Treatment Eating (QC): 6 Oral Hygiene (QC): 6 Bathing Location: L Arm, R Arm, L Upper Leg, R Upper Leg, L Lower Leg (including foot), R Lower Leg (including foot), Chest, Abdomen, Perineal Area Shower/Bathe Self (QC): 3 Upper Body Dressing (QC): 6 Lower Body Dressing (QC): 2 On/Off Footwear (QC): 2 (Assist to doff/don compression stocking, assist to don shoe. Pt able to doff regular sock.) Toileting Hygiene (QC): 2 Assessment/Plan Assessment and Plan Assess & Plan/Chief Complaint Assessment: Right pes planovalgus deformity surgical resolution DVT prophylaxis with Lovenox Hypertension Hyperlipidemia Thyroid disease Postoperative constipation resolved after mag citrate Hypokalemia Right hip pain consulting Dr. Anaya Restless leg syndrome Plan: Home meds Rehab protocol Pain control 06/23/2021: Pain control Increase potassium Add Aldactone 06/24/21: Restarted Aldactone Continue increase potassium supplement 06/25/2021: Maintain Aldactone Continue potassium supplement 06/26/2021: Dr. Anaya for right hip pain X-ray of right hip Requip at 2:00am (1) Pes planovalgus (2) Hypertension (3) Restless leg syndrome (4) Neuropathy (5) Thyroid disease (6) Constipation DIAZ KELLY DO Jun 26, 2021 05:52
[2021-06-26 08:11] VITALS: BP 118/58
[2021-06-26] MEDS: TRIAMTERENE/HCTZ 75-50 (MAXZIDE,DYAZIDE) TABLET PO SCH (08:13)
[2021-06-26] MEDS: amLODIPine 2.5MG (NORVASC) TAB PO SCH (08:13)
[2021-06-26] MEDS: MELOXICAM 7.5 MG (MOBIC) TABLET PO SCH ×2 (08:14→21:01)
[2021-06-26] MEDS: KCL 20 MEQ TAB (K-DUR) PO SCH ×3 (08:14→18:06)
[2021-06-26] MEDS: SPIRONOLACTONE 25 MG (ALDACTONE) TAB PO SCH (08:14)
[2021-06-26] MEDS: FLUTICASONE NASAL SPRAY (FLONASE) 16 GM BTL NS SCH ×2 (08:17→21:03)
[2021-06-26] MEDS: FUROSEMIDE 40 MG (LASIX) TAB PO SCH ×2 (08:17→15:27)
[2021-06-26] MEDS: DOCUSATE SODIUM 100 MG (COLACE) CAP PO SCH ×2 (09:00→21:01)
[2021-06-26] MEDS: DICLOFENAC 1% GEL 100 GM (VOLTAREN) TUBE TOP SCH ×4 (09:00→22:39)
[2021-06-26] MEDS: SENNA W/DOCUSATE (SENOKOT S) TABLET PO SCH ×2 (09:00→21:01)
[2021-06-26] MEDS: polyethylene glycoL POWDER 17 GM (MIRALAX) PACK PO SCH ×2 (09:00→19:39)
--- NOTE | 2021-06-26 09:32 | Physical Therapy Daily Note ---
PT Daily Note-Current Subjective Pt sitting up in bed upon arrival. Pt agrees to PT but requests to get dressed before leaving room. Nurse gives morning meds. Mental Status Patient Orientation: Person, Place, Time, Situation Transfers SCALE: Activities may be completed with or without assistive devices. 7-Pkzuagdjer-kuztbjv completes the activity by him/herself with no assistance from a helper. 5-Set-up or Clean-up Assistance-helper sets up or cleans up; patient completes activity. [place] assists only prior to or following the activity. 4-Supervision or Touching Assistance-helper provides verbal cues and/or touching/steadying and/or contact guard assistance as patient completes activity. Assistance may be provided throughout the activity or intermittently. 3-Partial/Moderate Assistance-helper does LESS THAN HALF the effort. [place] lifts, holds or supports trunk or limbs, but provides less than half the effort. 2-Substantial/Maximal Assistance-helper does MORE THAN HALF the effort. [place] lifts or holds trunk or limbs and provides more than half the effort. 5-Yloslpthi-xjshac does ALL the effort. Patient does none of the effort to complete the activity. Or, the assistance of 2 or more helpers is required for the patient to complete the activity. If activity was not attempted, code reason: 7-Patient Refused. 9-Not Applicable-not attempted and the patient did not perform the activity before the current illness, exacerbation or injury. 10-Not Attempted due to Environmental Limitations-(lack of equipment, weather restraints, etc.). 88-Not Attempted due to Medical Conditions or Safety Concerns. Sit to Lying (QC): 5 Lying to Sitting/Side of Bed(Q: 5 Sit to Stand (QC): 4 Chair/Kwx-sw-Mwhxy Xfer(QC): 4 Weight Bearing Right Lower Extremity: Right Non Weight Bearing Left Lower Extremity: Left Full Weight Bearing Wheelchair Training Does the Pt Use a Wheelchair?: Yes Wheel 50 ft with 2 turns (QC): 5 Wheel 150 ft (QC): 5 Type of Wheelchair: Manual Treatments Pt takes morning meds then gets dressed w/Set-up assistance from PT. checks pt during tx. Pt is able to get to EOB and bridge for dressing. [place] dons compression garment for pt. Pt stands from EOB and is able to hop to [facility], keeping WB status. Pt completes [facility] mobility, focusing on proper mechanics, forward/backward movement, sharp turns as pt cannot tolerate amb. for long. Pt returns to room to rest in [facility] per pt request. All needs met, call light in hand. Assessment Current Status: Good Progress Pt demonstrates increased independence with bed mobility, transfers and [facility] mobility. Pt is motivated to improve as pt is living alone. PT Short Term Goals Short Term Goals Time Frame: Jul 06, 2021 Roll Left & Right: 4 Sit to lyin Lying to sitting on side of be: 4 Sit to stand: 4 Chair/orz-hl-zvdbi transfer: 4 Toilet transfer: 4 Car transfer: 4 Walk 10 feet: 4 Walk 50 feet with two turns: 4 Walk 150 feet: 4 Walking 10ft on uneven surface: 4 1 step (curb): 2 Picking up objects: 2 Does pt use a wc or scooter: Yes Wheel 50ft w/2 turns: 4 Wheel 150 feet: 4 Type: Manual PT Halfway Goals Halfway Goals PT Halfway Goals Time Frame: Jul 20, 2021 Roll Left & Right (QC): 6 Sit to Lying (QC): 6 Lying-Sitting on Side/Bed(QC): 6 Sit to Stand (QC): 6 Chair/Ceu-np-Bfhnj Xfer(QC): 6 Toilet Transfer (QC): 6 Car Transfer (QC): 6 Does the Patient Walk: Yes (Knee Scooter) Walk 10 feet (QC): 6 Walk 50ft with 2 Turns (QC): 6 Walk 150 ft (QC): 6 Walking 10ft on Uneven Surface: 6 1 Step (curb) (QC): 6 4 Steps (QC): 88 12 Steps (QC): 88 Picking up an Object (QC): 2 Does the Pt use WC or Scooter?: Yes Wheel 50 feet with 2 turns (QC: 6 Type: Manual Wheel 150 feet: 6 Type: Manual PT Plan Problem List Problem List: Activity Tolerance Treatment/Plan Treatment Plan: Continue Plan of Care Treatment Plan: Bed Mobility, Concurrent Therapy, Education, Functional Activity Dallin, Functional Strength, Group Therapy, Gait, Safety, Therapeutic Exercise, Transfers Treatment Duration: Jul 20, 2021 Frequency: At least 5 of 7 days/Wk (IRF) Estimated Hrs Per Day: 1.5 hours per day Patient and/or Family Agrees t: Yes Safety Risks/Education Patient Education: Transfer Techniques, W/C Management Teaching Recipient: Patient Teaching Methods: Discussion Response to Teaching: Verbalize Understanding Time/GCodes Time In: 800 Time Out: 900 Total Billed Treatment Time: 60 Total Billed Treatment 1, FA x2 (35m) & [facility] x2 (25m) ANA RICK [place] Jun 26, 2021 09:32
--- NOTE | 2021-06-26 11:06 | Occupational Ther Daily Note ---
OT Current Status-Daily Note Subjective Pt alert, sitting in w/c. Pt agrees to therapy. No c/o pain. Mental Status/Objective Patient Orientation: Person, Place, Time, Situation ADL-Treatment Pt just finishing up with grooming as KESSLER entered room. PT assisted pt with dressing today. Discussed what AE was needed for pt's home. Pt has 1"-2" ledge to step over, so interested in tub transfer bench for safe transfer do to NWB status. Pt was shown how tub transfer bench's are positioned and how to transfer into shower. Pt verbalizes understanding. Pt then was shown sock aide, dressing stick, LH shoehorn and other items in hip kit. Pt demonstrated understanding of how to use civil engineering teacher and dressing stick. Pt then able demonstrate ability to complete donning L sock and shoe by using figure [employer] te [employer]. Pt educated that this and hip kit are not covered by medicare. Pt purchased items from [employer] today. Pt then completed toileting. Pt positioned w/c at bathroom door and used FWW to hop for SPT to [facility]. Assist to manipulate clothing, pt able to cleanse while sitting on toilet. Pt educated on taking off/putting on leg rest on w/c, will need continued practice to become p roficient. After session, pt sitting in w/c with call light/phone in reach. All needs met in room. Therapy Code Descriptions/Definitions Functional [place] Measure: 0=Not Assessed/NA 4=Minimal Assistance 1=Total Assistance 5=Supervision or Setup 2=Maximal Assistance 6=Modified [place] 3=Moderate Assistance 7=Complete IndependenceSCALE: Activities may be completed with or without assistive devices. 1-Cneguacvhh-rpxooeh completes the activity by him/herself with no assistance from a helper. 5-Set-up or Clean-up Assistance-helper sets up or cleans up; patient completes activity. [place] assists only prior to or following the activity. 4-Supervision or Touching Assistance-helper provides verbal cues and/or touching/steadying and/or contact guard assistance as patient completes activity. Assistance may be provided throughout the activity or intermittently. 3-Partial/Moderate Assistance-helper does LESS THAN HALF the effort. [place] lifts, holds or supports trunk or limbs, but provides less than half the effort. 2-Substantial/Maximal Assistance-helper does MORE THAN HALF the effort. [place] lifts or holds trunk or limbs and provides more than half the effort. 3-Susuyliqb-knrfjv does ALL the effort. Patient does none of the effort to complete the activity. Or, the assistance of 2 or more helpers is required for the patient to complete the activity. If activity was not attempted, code reason: 7-Patient Refused. 9-Not Applicable-not attempted and the patient did not perform the activity before the current illness, exacerbation or injury. 10-Not Attempted due to Environmental Limitations-(lack of equipment, weather restraints, etc.). 88-Not Attempted due to Medical Conditions or Safety Concerns. On/Off Footwear: 5 Toileting Hygiene (QC): 3 Toilet Transfer (QC): 3 OT Short Term Goals Short Term Goals Time Frame: Jul 13, 2021 Shower/bathe self: 3 Lower body dressin Putting on/taking off footwear: 3 OT Editing Clerk Goals Intermediate Goals Time Frame: Jul 20, 2021 Eating (QC): 6 Oral Hygiene (QC): 6 Toileting Hygiene (QC): 6 Shower/Bathe Self (QC): 6 Upper Body Dressing (QC): 6 Lower Body Dressing (QC): 6 On/Off Footwear (QC): 6 Additional Goals: 1-Demonstrate ADL Tasks, 2-Verbalize Understanding, 3- ImproveStrength/Dallin 1=Demonstrate adherence to instructed precautions during ADL tasks. 2=Patient will verbalize/demonstrate understanding of assistive devices/modifications for ADL. 3=Patient will improve strength/tolerance for activity to enable patient to perform ADL's. OT Education/Plan Problem List/Assessment Assessment: Decreased Activ Tolerance, Decreased UE Strength, Impaired Funct Balance, Impaired Self-Care Skills Discharge Recommendations Plan/Recommendations: Continue POC Treatment Plan/Plan of Care Patient would benefit from OT for education, treatment and training to promote independence in ADL's, mobility, safety and/or upper extremity function for ADL's. Plan of Care: ADL Retraining, Functional Mobility, Group Exercise/Act as Ind, UE Funct Exercise/Act Treatment Duration: Jul 20, 2021 Frequency: At least 5 of 7 days/Wk (IRF) Estimated Hrs Per Day: 1.5 hours per day Agreement: Yes Rehab Potential: Fair Time/GCodes Start Time: 10:00 Stop Time: 11:00 Total Time Billed (hr/min): 60 Billed Treatment Time 1 visit-ADL 2 (30 min) FA 2 (30 min) REGLA DOUGLAS Jun 26, 2021 11:06
--- NOTE | 2021-06-26 12:54 | Diagnostic Imaging Report ---
INDICATION: Right hip pain. TIME OF EXAM: 11:33 a.m. FINDINGS: Three views of the right hip show normal femoroacetabular alignment. There is some superior and medial joint space narrowing. The femoral head and neck are intact. No fractures are seen. Extensive spinal instrumentation in the lower lumbar spine with iliac extensions is noted. There does appear to be some interruption between the vertical shraddha on the right at approximately the L5-S1 level. IMPRESSION: Right hip osteoarthritic changes. No acute bony abnormality is detected. Dictated by: Dictated on workstation # [id number]
[2021-06-26] MEDS: ENOXAPARIN 40 MG/0.4 ML (LOVENOX) SYR SC SCH (12:58)
--- NOTE | 2021-06-26 14:59 | Physical Therapy Daily Note ---
PT Daily Note-Current Subjective Pt sitting in [facility] upo arrival. Pt agrees to PT for use of NuStep. Pain Location: No Pain Reported Mental Status Patient Orientation: Person, Place, Time, Situation Transfers SCALE: Activities may be completed with or without assistive devices. 8-Bazhykrdij-ubqoycd completes the activity by him/herself with no assistance from a helper. 5-Set-up or Clean-up Assistance-helper sets up or cleans up; patient completes activity. [place] assists only prior to or following the activity. 4-Supervision or Touching Assistance-helper provides verbal cues and/or touching/steadying and/or contact guard assistance as patient completes activity. Assistance may be provided throughout the activity or intermittently. 3-Partial/Moderate Assistance-helper does LESS THAN HALF the effort. [place] lifts, holds or supports trunk or limbs, but provides less than half the effort. 2-Substantial/Maximal Assistance-helper does MORE THAN HALF the effort. [place] lifts or holds trunk or limbs and provides more than half the effort. 1-Rsfjdcgsk-yndukk does ALL the effort. Patient does none of the effort to complete the activity. Or, the assistance of 2 or more helpers is required for the patient to complete the activity. If activity was not attempted, code reason: 7-Patient Refused. 9-Not Applicable-not attempted and the patient did not perform the activity before the current illness, exacerbation or injury. 10-Not Attempted due to Environmental Limitations-(lack of equipment, weather restraints, etc.). 88-Not Attempted due to Medical Conditions or Safety Concerns. Sit to Stand (QC): 5 Weight Bearing Right Lower Extremity: Right Non Weight Bearing Left Lower Extremity: Left Full Weight Bearing Exercises NuStep Minutes: 12 NuStep Workload: 10 Treatments Pt propels [facility] in hallway then uses NuStep. Pt takes short RB before propelling WC in hallway and returning to room. Pt asks to again stay in [facility] and rest. All needs met, call light in hand. Assessment Current Status: Good Progress Pt is motivated to get stronger and more independent as she is home alone. Pt asks to try more work w/knee scooter, transfer from scooter to BS & transfer to [facility]. PT Short Term Goals Short Term Goals Time Frame: Jul 06, 2021 Roll Left & Right: 4 Sit to lyin Lying to sitting on side of be: 4 Sit to stand: 4 Chair/nnd-ou-npemj transfer: 4 Toilet transfer: 4 Car transfer: 4 Walk 10 feet: 4 Walk 50 feet with two turns: 4 Walk 150 feet: 4 Walking 10ft on uneven surface: 4 1 step (curb): 2 Picking up objects: 2 Does pt use a wc or scooter: Yes Wheel 50ft w/2 turns: 4 Wheel 150 feet: 4 Type: Manual PT Intermediate Goals Monument Erector Goals PT Monument Erector Goals Time Frame: Jul 20, 2021 Roll Left & Right (QC): 6 Sit to Lying (QC): 6 Lying-Sitting on Side/Bed(QC): 6 Sit to Stand (QC): 6 Chair/Nzy-jd-Cgjuo Xfer(QC): 6 Toilet Transfer (QC): 6 Car Transfer (QC): 6 Does the Patient Walk: Yes (Knee Scooter) Walk 10 feet (QC): 6 Walk 50ft with 2 Turns (QC): 6 Walk 150 ft (QC): 6 Walking 10ft on Uneven Surface: 6 1 Step (curb) (QC): 6 4 Steps (QC): 88 12 Steps (QC): 88 Picking up an Object (QC): 2 Does the Pt use WC or Scooter?: Yes Wheel 50 feet with 2 turns (QC: 6 Type: Manual Wheel 150 feet: 6 Type: Manual PT Plan Treatment/Plan Treatment Plan: Continue Plan of Care Treatment Plan: Bed Mobility, Concurrent Therapy, Education, Functional Activity Dallin, Functional Strength, Group Therapy, Gait, Safety, Therapeutic Exercise, Transfers Treatment Duration: Jul 20, 2021 Frequency: At least 5 of 7 days/Wk (IRF) Estimated Hrs Per Day: 1.5 hours per day Patient and/or Family Agrees t: Yes Safety Risks/Education Patient Education: Correct Positioning Teaching Recipient: Patient Teaching Methods: Discussion Response to Teaching: Verbalize Understanding Time/GCodes Time In: 1330 Time Out: 1400 Total Billed Treatment Time: 30 Total Billed Treatment 1, EX (15m) & FA (15m) ANA RICK VACUUM METALIZER OPERATOR Jun 26, 2021 14:59
[2021-06-26 20:30] VITALS: BP 143/63
[2021-06-26] MEDS: MULTIVIT W/MINERALS TAB (THERAGRAN M) PO SCH (21:01)
[2021-06-26] MEDS: diphenhydrAMINE 25 MG TAB (BENADRYL) PO SCH (21:01)
[2021-06-26] MEDS: LEVOCETIRIZINE 5 MG TAB (XYZAL) NON-FORMULARY PO SCH (21:02)
[2021-06-26] MEDS: CALCIUM CARBONATE 500 MG (TUMS) TAB.CHEW PO PRN (21:06)
[2021-06-27] MEDS: rOPINIRole 1 MG (REQUIP) TABLET PO PRN (00:53)
[2021-06-27] MEDS: LEVOTHYROXINE 25 MCG (LEVOTHROID) TAB PO SCH (05:44)
[2021-06-27] MEDS: LEVOTHYROXINE 112 MCG (LEVOTHROID) TAB PO SCH (05:44)
[2021-06-27] MEDS: rOPINIRole 1 MG (REQUIP) TABLET PO SCH ×3 (06:30→21:18)
[2021-06-27] MEDS ORDERED: BUPIVACAINE 0.5% 30 ML (SENSORCAINE) VIAL INJ ONE (07:15)
[2021-06-27] MEDS ORDERED: methylPREDNISolone 40 MG/ML (DEPO MEDROL) VIAL IA ONE (07:15)
--- NOTE | 2021-06-27 07:16 | PM&R Progress Note ---
Subjective HPI/CC On Admission Date Seen by Provider: Jun 27, 2021 Time Seen by Provider: 12:45 Subjective/Events-last exam 06/27/2021: Pt is doing well Received a right hip injection today and he is doing very well with it Requip taken at 1:30 in the morning and that helped a lot Checked meds and labs 06/26/2021: Pt has multiple issues Wants Requip at 2 in the morning Right hip pain will prompt an x-ray and Dr. Anaya consult Checked meds and labs No falls 06/25/2021: Pt is doing a lot better Pain management is successful Potassium is 3.7 on 40 milliequivalents TID in addition to Aldactone Baclofen will be ordered, she has done well on that before due to restless leg syndrome at night Voltaren gel will be placed on hip pain 06/24/2021: Patient doing well Meloxicam will be changed to twice a day schedule instead of as needed Talked about spironolactone and the fact that we started and it was not on her list Check meds and labs No falls 06/23/2021: Patient doing much better Pain is well controlled now that we changed the hydrocodone to 10/325 Bowels are moving yet so I added suppositories and mag citrate Potassium supplement will be increased to 40 mEq twice daily She reportedly takes spironolactone but I did not see that on her home medication list we will start 25 mg daily to protect potassium Review of Systems General: Fatigue, Malaise Musculoskeletal: leg pain, foot pain Objective Exam Vital Signs Vital Signs Date Time Temp Pulse Resp B/P (MAP) Pulse Ox O2 Delivery O2 Flow Rate FiO2 06/27/21 20:22 36.2 82 18 125/59 (81) 98 Room Air Capillary Refill : General Appearance: No Apparent Distress, WD/WN, Chronically ill HEENT: PERRL/EOMI, Normal ENT Inspection, Pharynx Normal Neck: Full Range of Motion, Normal Inspection, Non Tender, Supple, Carotid Bruit Respiratory: Chest Non Tender, Lungs Clear, Normal Breath Sounds, No Accessory Muscle Use, No Respiratory Distress Cardiovascular: Regular Rate, Rhythm, No Edema, No Gallop, No JVD, No Murmur, Normal Peripheral Pulses Gastrointestinal: Normal Bowel Sounds, No Organomegaly, No Pulsatile Mass, Non Tender, Soft Back: Normal Inspection, No CVA Tenderness, No Vertebral Tenderness Extremity: Normal Capillary Refill, Normal Inspection, Normal Range of Motion, Non Tender, No Calf Tenderness, No Pedal Edema Neurologic/Psychiatric: Alert, Oriented x3, No Motor/Sensory Deficits, Normal Mood/Affect, pizza 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 FIM Transfers Therapy Code Descriptions/Definitions Functional [place] Measure: 0=Not Assessed/NA 4=Minimal Assistance 1=Total Assistance 5=Supervision or Setup 2=Maximal Assistance 6=Modified [place] 3=Moderate Assistance 7=Complete IndependenceSCALE: Activities may be completed with or without assistive devices. 5-Ntgdbdepga-mxvqigo completes the activity by him/herself with no assistance from a helper. 5-Set-up or Clean-up Assistance-helper sets up or cleans up; patient completes activity. [place] assists only prior to or following the activity. 4-Supervision or Touching Assistance-helper provides verbal cues and/or touching/steadying and/or contact guard assistance as patient completes activity. Assistance may be provided throughout the activity or intermittently. 3-Partial/Moderate Assistance-helper does LESS THAN HALF the effort. [place] lifts, holds or supports trunk or limbs, but provides less than half the effort. 2-Substantial/Maximal Assistance-helper does MORE THAN HALF the effort. [place] lifts or holds trunk or limbs and provides more than half the effort. 9-Gdmqstvkq-blyyma does ALL the effort. Patient does none of the effort to complete the activity. Or, the assistance of 2 or more helpers is required for the patient to complete the activity. If activity was not attempted, code reason: 7-Patient Refused. 9-Not Applicable-not attempted and the patient did not perform the activity before the current illness, exacerbation or injury. 10-Not Attempted due to Environmental Limitations-(lack of equipment, weather restraints, etc.). 88-Not Attempted due to Medical Conditions or Safety Concerns. Roll Left to Right (QC): 6 Sit to Lying (QC): 5 Sit to Stand (QC): 5 Chair/Fsv-kt-Jbgvx Xfer(QC): 4 Car Transfer (QC): 2 Gait Training Does the Patient Walk?: Yes Distance: 5', 10'x2 Walk 10 feet (QC): 4 Walk 50 ft with 2 Turns(QC): 4 Walk 150 ft (QC): 3 Walking 10ft/uneven surface-QC: 3 Gait Persons Needed: 1 Gait Assistive Device: FWW Wheelchair Training Does the Pt Use a Wheelchair?: Yes Wheel 50 ft with 2 turns (QC): 5 Wheel 150 ft (QC): 5 Type of Wheelchair: Manual Stair Training 1 Step (curb) (QC): 88 4 Steps (QC): 88 12 Steps (QC): 88 Balance Picking up an Object (QC): 1 (Patient attemted and unable to perform safely) ADL-Treatment Eating (QC): 6 Oral Hygiene (QC): 6 Bathing Location: L Arm, R Arm, L Upper Leg, R Upper Leg, L Lower Leg (including foot), R Lower Leg (including foot), Chest, Abdomen, Perineal Area Shower/Bathe Self (QC): 3 Upper Body Dressing (QC): 6 Lower Body Dressing (QC): 2 On/Off Footwear (QC): 5 Toileting Hygiene (QC): 3 Toilet Transfer (QC): 3 Assessment/Plan Assessment and Plan Assess & Plan/Chief Complaint Assessment: Right pes planovalgus deformity surgical resolution DVT prophylaxis with Lovenox Hypertension Hyperlipidemia Thyroid disease Postoperative constipation resolved after mag citrate Hypokalemia Right hip pain right hip injection per Dr. Anaya 06/27/2021 Restless leg syndrome Plan: Home meds Rehab protocol Pain control 06/23/2021: Pain control Increase potassium Add Aldactone 06/24/21: Restarted Aldactone Continue increase potassium supplement 06/25/2021: Maintain Aldactone Continue potassium supplement 06/26/2021: Dr. Anaya for right hip pain X-ray of right hip Requip at 2:00am 06/27/2021: Requip Appreciate orthopedic surgery (1) Pes planovalgus (2) Hypertension (3) Restless leg syndrome (4) Neuropathy (5) Thyroid disease (6) Constipation DIAZ KELLY DO Jun 27, 2021 07:16
[2021-06-27 07:55] VITALS: BP 128/61
[2021-06-27] MEDS: SENNA W/DOCUSATE (SENOKOT S) TABLET PO SCH ×2 (08:09→21:18)
[2021-06-27] MEDS: TRIAMTERENE/HCTZ 75-50 (MAXZIDE,DYAZIDE) TABLET PO SCH (08:09)
[2021-06-27] MEDS: DOCUSATE SODIUM 100 MG (COLACE) CAP PO SCH ×2 (08:09→21:18)
[2021-06-27] MEDS: amLODIPine 2.5MG (NORVASC) TAB PO SCH (08:09)
[2021-06-27] MEDS: KCL 20 MEQ TAB (K-DUR) PO SCH ×3 (08:09→17:54)
[2021-06-27] MEDS: SPIRONOLACTONE 25 MG (ALDACTONE) TAB PO SCH (08:09)
[2021-06-27] MEDS: FLUTICASONE NASAL SPRAY (FLONASE) 16 GM BTL NS SCH ×2 (08:10→21:15)
[2021-06-27] MEDS: MELOXICAM 7.5 MG (MOBIC) TABLET PO SCH ×2 (08:10→21:18)
[2021-06-27] MEDS: FUROSEMIDE 40 MG (LASIX) TAB PO SCH ×2 (08:12→15:09)
[2021-06-27] MEDS: DICLOFENAC 1% GEL 100 GM (VOLTAREN) TUBE TOP SCH ×4 (09:00→21:17)
[2021-06-27] MEDS: polyethylene glycoL POWDER 17 GM (MIRALAX) PACK PO SCH ×2 (09:00→19:38)
--- NOTE | 2021-06-27 10:15 | Occupational Ther Daily Note ---
OT Current Status-Daily Note Subjective Late Entry for 06/26/2021-Pt alert, sitting in w/c. Pt agrees to therapy. No c/o pain. Pt discussing medications with nrsg when KESSLER entered room. Mental Status/Objective Patient Orientation: Person, Place, Time, Situation ADL-Treatment Therapy Code Descriptions/Definitions Functional [place] Measure: 0=Not Assessed/NA 4=Minimal Assistance 1=Total Assistance 5=Supervision or Setup 2=Maximal Assistance 6=Modified [place] 3=Moderate Assistance 7=Complete IndependenceSCALE: Activities may be completed with or without assistive devices. 5-Gyjingahlp-faghmoh completes the activity by him/herself with no assistance from a helper. 5-Set-up or Clean-up Assistance-helper sets up or cleans up; patient completes activity. [place] assists only prior to or following the activity. 4-Supervision or Touching Assistance-helper provides verbal cues and/or touching/steadying and/or contact guard assistance as patient completes activity. Assistance may be provided throughout the activity or intermittently. 3-Partial/Moderate Assistance-helper does LESS THAN HALF the effort. [place] lifts, holds or supports trunk or limbs, but provides less than half the effort. 2-Substantial/Maximal Assistance-helper does MORE THAN HALF the effort. [place] lifts or holds trunk or limbs and provides more than half the effort. 9-Nusgykzum-xxsqap does ALL the effort. Patient does none of the effort to complete the activity. Or, the assistance of 2 or more helpers is required for the patient to complete the activity. If activity was not attempted, code reason: 7-Patient Refused. 9-Not Applicable-not attempted and the patient did not perform the activity before the current illness, exacerbation or injury. 10-Not Attempted due to Environmental Limitations-(lack of equipment, weather restraints, etc.). 88-Not Attempted due to Medical Conditions or Safety Concerns. Other Treatment Pt completed B UE exercises using 3# hand wts to increase B UE strength and activity tolerance. Skilled instruction for correct technique. Bicep curls(2 sets 15 reps), punches(2 sets 15 reps), full shldr abd/add(2 sets 10 reps), shldr shrugs(2 sets 15 reps). After session, pt sitting in recliner with call light/phone in reach. All needs met in room. OT Short Term Goals Short Term Goals Time Frame: Jul 13, 2021 Shower/bathe self: 3 Lower body dressin Putting on/taking off footwear: 3 OT Technical Developer Goals Technical Developer Goals Time Frame: Jul 20, 2021 Eating (QC): 6 Oral Hygiene (QC): 6 Toileting Hygiene (QC): 6 Shower/Bathe Self (QC): 6 Upper Body Dressing (QC): 6 Lower Body Dressing (QC): 6 On/Off Footwear (QC): 6 Additional Goals: 1-Demonstrate ADL Tasks, 2-Verbalize Understanding, 3- ImproveStrength/Dallin 1=Demonstrate adherence to instructed precautions during ADL tasks. 2=Patient will verbalize/demonstrate understanding of assistive devices/modifications for ADL. 3=Patient will improve strength/tolerance for activity to enable patient to perform ADL's. OT Education/Plan Problem List/Assessment Assessment: Impaired Self-Care Skills Discharge Recommendations Plan/Recommendations: Continue POC Treatment Plan/Plan of Care Patient would benefit from OT for education, treatment and training to promote independence in ADL's, mobility, safety and/or upper extremity function for ADL's. Plan of Care: ADL Retraining, Functional Mobility, Group Exercise/Act as Ind, UE Funct Exercise/Act Treatment Duration: Jul 20, 2021 Frequency: At least 5 of 7 days/Wk (IRF) Estimated Hrs Per Day: 1.5 hours per day Agreement: Yes Rehab Potential: Fair Time/GCodes Start Time: 13:00 Stop Time: 13:30 Total Time Billed (hr/min): 30 Billed Treatment Time 1 visit-EX 2 (30 min) REGLA DOUGLAS Jun 27, 2021 10:15
--- NOTE | 2021-06-27 10:28 | Occupational Ther Daily Note ---
OT Current Status-Daily Note Subjective Pt alert, sitting in w/c. Pt agrees to therapy. No c/o pain. Mental Status/Objective Patient Orientation: Person, Place, Time, Situation ADL-Treatment Pt agrees to shower. Mod A for SPT from w/c to shower. Pt then completed shower sitting on shower bench using grabbars and hand held shower by self. Independent with upper body dressing. Max A for lower body dressing. Mod A for footwear unless pt has R LE elevated on footrest then pt can cross L LE over and don/doff footwear by self or when sitting EOB. Mod A for toileting. Independent with oral care and eating. All at w/c level. Therapy Code Descriptions/Definitions Functional [place] Measure: 0=Not Assessed/NA 4=Minimal Assistance 1=Total Assistance 5=Supervision or Setup 2=Maximal Assistance 6=Modified [place] 3=Moderate Assistance 7=Complete IndependenceSCALE: Activities may be completed with or without assistive devices. 4-Fhfqqmhxcu-rkdmwdx completes the activity by him/herself with no assistance from a helper. 5-Set-up or Clean-up Assistance-helper sets up or cleans up; patient completes activity. [place] assists only prior to or following the activity. 4-Supervision or Touching Assistance-helper provides verbal cues and/or touching/steadying and/or contact guard assistance as patient completes activity. Assistance may be provided throughout the activity or intermittently. 3-Partial/Moderate Assistance-helper does LESS THAN HALF the effort. [place] lifts, holds or supports trunk or limbs, but provides less than half the effort. 2-Substantial/Maximal Assistance-helper does MORE THAN HALF the effort. [place] lifts or holds trunk or limbs and provides more than half the effort. 7-Tfsymvoek-yigeiy does ALL the effort. Patient does none of the effort to complete the activity. Or, the assistance of 2 or more helpers is required for the patient to complete the activity. If activity was not attempted, code reason: 7-Patient Refused. 9-Not Applicable-not attempted and the patient did not perform the activity before the current illness, exacerbation or injury. 10-Not Attempted due to Environmental Limitations-(lack of equipment, weather restraints, etc.). 88-Not Attempted due to Medical Conditions or Safety Concerns. Eating (QC): 6 Oral Hygiene (QC): 6 Shower/Bathe Self (QC): 6 Upper Body Dressing (QC): 6 Lower Body Dressing (QC): 2 On/Off Footwear: 3 Toileting Hygiene (QC): 3 (mod A) Other Treatment Pt given HEP for B UE exercises using hand wts. Skilled instruction given for correct techniques. Mirror placed in front of pt for pt to be aware of body positioning. Pt completed 10 exercises alternating 3# and 5# wt when needed. 1 set 10 reps of each. After session, pt talking to SW. All needs met. OT Short Term Goals Short Term Goals Time Frame: Jul 13, 2021 Shower/bathe self: 3 Lower body dressin Putting on/taking off footwear: 3 OT Detention Goals Detention Goals Time Frame: Jul 20, 2021 Eating (QC): 6 Oral Hygiene (QC): 6 Toileting Hygiene (QC): 6 Shower/Bathe Self (QC): 6 Upper Body Dressing (QC): 6 Lower Body Dressing (QC): 6 On/Off Footwear (QC): 6 Additional Goals: 1-Demonstrate ADL Tasks, 2-Verbalize Understanding, 3- ImproveStrength/Dallin 1=Demonstrate adherence to instructed precautions during ADL tasks. 2=Patient will verbalize/demonstrate understanding of assistive devices/modifications for ADL. 3=Patient will improve strength/tolerance for activity to enable patient to perform ADL's. OT Education/Plan Problem List/Assessment Assessment: Decreased Activ Tolerance, Decreased UE Strength, Impaired Self-C are Skills Discharge Recommendations Plan/Recommendations: Continue POC Treatment Plan/Plan of Care Patient would benefit from OT for education, treatment and training to promote independence in ADL's, mobility, safety and/or upper extremity function for ADL's. Plan of Care: ADL Retraining, Functional Mobility, Group Exercise/Act as Ind, UE Funct Exercise/Act Treatment Duration: Jul 20, 2021 Frequency: At least 5 of 7 days/Wk (IRF) Estimated Hrs Per Day: 1.5 hours per day Agreement: Yes Rehab Potential: Fair Time/GCodes Start Time: 08:30 Stop Time: 10:00 Total Time Billed (hr/min): 90 Billed Treatment Time 1 visit-ADL 5 (70 min) EX 1 (20 min) REGLA DOUGLAS Jun 27, 2021 10:28
--- NOTE | 2021-06-27 11:01 | Physical Therapy Daily Note ---
PT Daily Note-Current Subjective Pt. agreeable to Rx. Pt. talks near non stop and is difficult to interrupt to direct to task at hand. No pain c/o today. Shares a bit o how her home is arranged and sounds as if it will be a mobility challenge in certain areas Pain Numeric Pain Scale: 3 Location: Right Location Body Site: Hip Pain Description: Ache Comment: pt. states this is bursitis Mental Status Patient Orientation: Normal For Age Attachments: Other-See Comments (casted right foot ankle) Transfers SCALE: Activities may be completed with or without assistive devices. 8-Ldzgwboyzu-sfbgteu completes the activity by him/herself with no assistance from a helper. 5-Set-up or Clean-up Assistance-helper sets up or cleans up; patient completes activity. [place] assists only prior to or following the activity. 4-Supervision or Touching Assistance-helper provides verbal cues and/or touching/steadying and/or contact guard assistance as patient completes activity. Assistance may be provided throughout the activity or intermittently. 3-Partial/Moderate Assistance-helper does LESS THAN HALF the effort. [place] lifts, holds or supports trunk or limbs, but provides less than half the effort. 2-Substantial/Maximal Assistance-helper does MORE THAN HALF the effort. [place] lifts or holds trunk or limbs and provides more than half the effort. 0-Oakqdxeui-vatrwj does ALL the effort. Patient does none of the effort to complete the activity. Or, the assistance of 2 or more helpers is required for the patient to complete the activity. If activity was not attempted, code reason: 7-Patient Refused. 9-Not Applicable-not attempted and the patient did not perform the activity before the current illness, exacerbation or injury. 10-Not Attempted due to Environmental Limitations-(lack of equipment, weather restraints, etc.). 88-Not Attempted due to Medical Conditions or Safety Concerns. Roll Left & Right (QC): 6 Sit to Lying (QC): 6 Lying to Sitting/Side of Bed(Q: 6 Sit to Stand (QC): 4 Chair/Nbk-du-Nhyxp Xfer(QC): 4 Weight Bearing Right Lower Extremity: Right Non Weight Bearing Left Lower Extremity: Left Full Weight Bearing Gait Training Gait Assistive Device: FWW sidestepping left and right 6ft x 2 each direction to simulate work in kitchen or in out bthrm Wheelchair Training Does the Pt Use a Wheelchair?: Yes Wheel 50 ft with 2 turns (QC): 6 Wheel 150 ft (QC): 6 Type of Wheelchair: Manual needs assist to put leg rest off on, needs some coaching at times for most effic ient sharp turns and for backing as well Exercises Supine Ex: Ankle pumps, Rolling, Heel Slides, Short Arc Quads, Straight leg raise, Hip abd/add Supine Reps: 15 Standing Reps: 5 Treatments TRFs, side step gait , supine therex, nustep Assessment Current Status: Good Progress PT Short Term Goals Short Term Goals Time Frame: Jul 06, 2021 Roll Left & Right: 4 Sit to lyin Lying to sitting on side of be: 4 Sit to stand: 4 Chair/oku-rs-hahjs transfer: 4 Toilet transfer: 4 Car transfer: 4 Walk 10 feet: 4 Walk 50 feet with two turns: 4 Walk 150 feet: 4 Walking 10ft on uneven surface: 4 1 step (curb): 2 Picking up objects: 2 Does pt use a wc or scooter: Yes Wheel 50ft w/2 turns: 4 Wheel 150 feet: 4 Type: Manual PT Carbide Tool Maker Goals Carbide Tool Maker Goals PT Carbide Tool Maker Goals Time Frame: Jul 20, 2021 Roll Left & Right (QC): 6 Sit to Lying (QC): 6 Lying-Sitting on Side/Bed(QC): 6 Sit to Stand (QC): 6 Chair/Tmf-xs-Avtcr Xfer(QC): 6 Toilet Transfer (QC): 6 Car Transfer (QC): 6 Does the Patient Walk: Yes (Knee Scooter) Walk 10 feet (QC): 6 Walk 50ft with 2 Turns (QC): 6 Walk 150 ft (QC): 6 Walking 10ft on Uneven Surface: 6 1 Step (curb) (QC): 6 4 Steps (QC): 88 12 Steps (QC): 88 Picking up an Object (QC): 2 Does the Pt use WC or Scooter?: Yes Wheel 50 feet with 2 turns (QC: 6 Type: Manual Wheel 150 feet: 6 Type: Manual PT Plan Treatment/Plan Treatment Plan: Continue Plan of Care Treatment Plan: Bed Mobility, Concurrent Therapy, Education, Functional Activity Dallin, Functional Strength, Group Therapy, Gait, Safety, Therapeutic Exercise, Transfers Treatment Duration: Jul 20, 2021 Frequency: At least 5 of 7 days/Wk (IRF) Estimated Hrs Per Day: 1.5 hours per day Patient and/or Family Agrees t: Yes Safety Risks/Education Patient Education: Gait Training, Transfer Techniques, Reviewed Precautions, Correct Positioning, W/C Management, Safety Issues Teaching Recipient: Patient Teaching Methods: Demonstration, Discussion Response to Teaching: Verbalize Understanding, Return Demonstration, Reinforcement Needed Time/GCodes Time In: 1000 Time Out: 1100 Total Billed Treatment Time: 60 Total Billed Treatment 1,GT10m,WC15m,EX20m,FA15m RADHA LYNN SYSTEMS PROGRAMMER ANALYST Jun 27, 2021 11:01
--- NOTE | 2021-06-27 12:39 | Consultation ---
History of Present Illness History of Present Illness Patient Consulted On([facility]/time) 06/27/21 12:34 Patient has a long standing hx of right trochanteric pain and typically does well with cortisione injections. She is s/p recent right foot surgery and requesting a treatment. No associated injury. Ambulating with knee scooter. Date Seen by Provider: Jun 27, 2021 Time Seen by Provider: 12:36 Reason for Visit: Right hip pain History of Present Illness Patient has a long standing hx of right trochanteric pain and typically does well with cortisione injections. She is s/p recent right foot surgery and requesting a treatment. No associated injury. Ambulating with knee scooter. Allergies and Home Medications Allergies Coded Allergies: sulfamethoxazole (Verified Allergy, Unknown, 06/22/21) trimethoprim (Verified Allergy, Unknown, 06/22/21) lisinopril (Verified Adverse Reaction, Unknown, 06/22/21) morphine (Verified Adverse Reaction, Unknown, 06/22/21) Patient Home Medication List Home Medication List Reviewed: Yes Amlodipine Besylate (Amlodipine Besylate) 2.5 Mg Tablet, 2.5 MG PO DAILY, (Reported) Entered as Reported by: BRANDIE CHUNG on 06/22/21932 Last Action: Continued Diphenhydramine HCl (Benadryl) 25 Mg Capsule, 25 MG PO HS, (Reported) Entered as Reported by: BRANDIE CHUNG on 06/22/21932 Last Action: Converted Fluticasone Propionate (Flonase Allergy Relief) 9.9 Ml [place].susp, 1 SPRAY NSEACH BID, (Reported) Entered as Reported by: BRANDIE CHUNG on 06/22/21933 Last Action: Converted Furosemide (Furosemide) 40 Mg Tablet, 40 MG PO 0900,1500, (Reported) Entered as Reported by: BRANDIE CHUNG on 06/22/21933 Last Action: Continued Hydrocodone/Acetaminophen (Hydrocodone-Acetamin 10-325 mg) 1 Each Tablet, 1-2 EACH PO Q4H PRN for PAIN-MODERATE (5-7), (Reported) Entered as Reported by: BRANDIE CHUNG on 06/22/21932 Last Action: Continued Levocetirizine Dihydrochloride (Xyzal) 5 Mg Tablet, 5 MG PO HS, (Reported) Entered as Reported by: BRANDIE CHUNG on 06/22/21932 Last Action: Continued Levothyroxine Sodium (Levothyroxine Sodium) 137 Mcg Tablet, 137 MCG PO DAILY, (Reported) Entered as Reported by: BRANDIE CHUNG on 06/22/21933 Last Action: Converted Meloxicam (Meloxicam) 7.5 Mg Tablet, 7.5 MG PO BID PRN for PAIN-MILD (1-4), (Reported) Entered as Reported by: BRANDIE CHUNG on 06/22/21939 Last Action: Continued Multivitamin (Multivitamin) 1 Each Tablet, 1 EACH PO DAILY, (Reported) Entered as Reported by: BRANDIE CHUNG on 06/22/21933 Last Action: Converted Potassium Chloride (Potassium Chloride) 20 Meq Tablet.er, 20 MEQ PO TID, (Reported) Entered as Reported by: BRANDIE CHUNG on 06/22/21932 Last Action: Converted Ropinirole HCl (Ropinirole HCl) 1 Mg Tablet, 1 MG PO TID, (Reported) Entered as Reported by: BRANDIE CHUNG on 06/22/21932 Last Action: Continued Triamterene/Hydrochlorothiazid (Triamterene-Hctz 75-50 mg Tab) 1 Each Tablet, 1 EACH PO DAILY, (Reported) Entered as Reported by: BRANDIE CHUNG on 06/22/21932 Last Action: Continued Discontinued Medications Meloxicam (Mobic) 15 Mg Tablet, 15 MG PO BID PRN for PAIN-MILD (1-4), (Reported) Discontinued Reason: Prescription changed Entered as Reported by: BRANDIE CHUNG on 06/22/21932 Last Action: New Order Past Abnvttj-Rrftol-Oxewkv Hx Patient Social History Tobacco Use?: No Smoking Status: Never a Smoker Use of E-Cig and/or Vaping dev: No Substance use?: No Alcohol Use?: No Alcohol Frequency: Rarely Pt feels they are or have been: No Immunizations Up To Date Influenza Vaccine Up-to-Date: Yes; Up-to-Date First/Initial COVID19 Vaccinat: Jun 2020 Second COVID19 Vaccination [facility]: July 2020 Third COVID19 Vaccination Date: May Past Medical History Orthopedic High Cholesterol, Hypertension Arthritis Diabetes, Non-Insulin dep Physical Exam-General Problems Physical Exam Vital Signs Vital Signs - First Documented 06/22/21 18:00 Temp 37.0 Pulse 89 Resp 16 B/P (MAP) 161/73 (102) Pulse Ox 97 O2 Delivery Room Air Capillary Refill : Extremities: normal range of motion, non-tender (TTP right greater trochanter), normal inspection, no pedal edema, no calf tenderness, normal capillary refill, pelvis stable (No pain with passive hip ROM), calf tenderness, inflammation, pedal edema, slow capillary refill, swelling, other Assessment/Plan Assessment/Plan Admission Diagnosis/Plan A: Right hip trochanteric bursitis Plan: Right hip greater troch injected with 40mg of depo medrol and 4cc of .5% bupivicaine. This was under sterile conditions with alcohole and betadine prep. Ice PRN PT as tolerated ALY DENNIS Jun 27, 2021 12:39
[2021-06-27] MEDS: ENOXAPARIN 40 MG/0.4 ML (LOVENOX) SYR SC SCH (13:38)
--- NOTE | 2021-06-27 13:38 | Physical Therapy Daily Note ---
PT Daily Note-Current Subjective Pt. agrees to Rx. States she needs to go to bthrm. Pt. declines attempting to use scooter into bthrm but states she is very disappointed that she is not working on walking with the scooter more than she has. In the bthrm, pt. resists using her R UE hand to pull up her pants on the right as she states she has a lot of balance difficulties and cant stand on her LLE only and use her l hand only to hang on to the FWW but she does seem able to hang on with her right hand and tries to manage pulling pants up down with left only. During attempt at scooter which puts her L knee on the scooter (which is a TKR) pt. c/o almost as soon as beginning the mobility that she has a cramp in her right hamstring, this subsides within 10 ft of mobility. Pain Numeric Pain Scale: 4 Location: Right Location Body Site: Thigh (hamstring) Pain Description: Cramping Mental Status Patient Orientation: Normal For Age Attachments: Other-See Comments (casted R foot/ankle) Transfers SCALE: Activities may be completed with or without assistive devices. 0-Mxxkmbxfab-syxmdib completes the activity by him/herself with no assistance from a helper. 5-Set-up or Clean-up Assistance-helper sets up or cleans up; patient completes activity. [place] assists only prior to or following the activity. 4-Supervision or Touching Assistance-helper provides verbal cues and/or touching/steadying and/or contact guard assistance as patient completes activity. Assistance may be provided throughout the activity or intermittently. 3-Partial/Moderate Assistance-helper does LESS THAN HALF the effort. [place] lifts, holds or supports trunk or limbs, but provides less than half the effort. 2-Substantial/Maximal Assistance-helper does MORE THAN HALF the effort. [place] lifts or holds trunk or limbs and provides more than half the effort. 8-Nkcwafnsz-bziupw does ALL the effort. Patient does none of the effort to com plete the activity. Or, the assistance of 2 or more helpers is required for the patient to complete the activity. If activity was not attempted, code reason: 7-Patient Refused. 9-Not Applicable-not attempted and the patient did not perform the activity before the current illness, exacerbation or injury. 10-Not Attempted due to Environmental Limitations-(lack of equipment, weather restraints, etc.). 88-Not Attempted due to Medical Conditions or Safety Concerns. Sit to Stand (QC): 4 Chair/Kyx-fk-Nylim Xfer(QC): 4 Pt. with great difficulty TRFing onto scooter after standing. The reach from the arms of the chair to the device was awkward and pt was vulnerable to incident at that time and required assist to do so., Leal scooter was also challenging and required much changing around in pts room to accommodate for chair in just the exact right place behind the pt. to sit. Pt. TRFd with FWW for SPTs with CGA for toileting Weight Bearing Right Lower Extremity: Right Non Weight Bearing Left Lower Extremity: Left Full Weight Bearing Gait Training Walk 50 ft with 2 Turns(QC): 4 scooter 50-75 ft with 3 turns, pt. needs min to CGA as balance is questionable, pt. must go forward and back many times to make a complete turn all the while c/o cramp in hamstring and pain in TKR she is wt bearing on Wheelchair Training Does the Pt Use a Wheelchair?: Yes Wheel 50 ft with 2 turns (QC): 6 Wheel 150 ft (QC): 6 Type of Wheelchair: Manual Pt. demnstrted ability to take leg rests off on indep, brake etc Ptwas challenged with FIG 8s with w/c, tight ZTR turns and up down ramp for and back. Pt also challenged to enter and exit elevator managing buttons indep. Pt. managed this well but with extended leg rest elevate on right leg it is a challenge for pt. to move in tight areas. Treatments Pt. demonstrates questionable balance standing on single leg and this extends to her use with the scooter, the devices wheel base makes for such wide turns that pt. has to reverse and turn several times to make a complete turn left or right unless she is in a very wide space. pts tolerance for wt bearing on this TKR is also limited. Regarding use of w/c on ramp pt did well on hosp ramp but admits that her ramp is only 26 in long and "pretty steep". Assessment Current Status: Good Progress This ANIMAL CYTOLOGIST is unsure of which mobility devices are best for her at home, scooter or w/c, pts home nate bthrm is tight quarters. This ANIMAL CYTOLOGIST recommends HC PT OT at DC to commandeer safety initially PT Short Term Goals Short Term Goals Time Frame: Jul 06, 2021 Roll Left & Right: 4 Sit to lyin Lying to sitting on side of be: 4 Sit to stand: 4 Chair/mvg-fq-nubmy transfer: 4 Toilet transfer: 4 Car transfer: 4 Walk 10 feet: 4 Walk 50 feet with two turns: 4 Walk 150 feet: 4 Walking 10ft on uneven surface: 4 1 step (curb): 2 Picking up objects: 2 Does pt use a wc or scooter: Yes Wheel 50ft w/2 turns: 4 Wheel 150 feet: 4 Type: Manual PT Mcc Goals Processor Inspector Goals PT Mcc Goals Time Frame: Jul 20, 2021 Roll Left & Right (QC): 6 Sit to Lying (QC): 6 Lying-Sitting on Side/Bed(QC): 6 Sit to Stand (QC): 6 Chair/Vmj-fg-Tvqpj Xfer(QC): 6 Toilet Transfer (QC): 6 Car Transfer (QC): 6 Does the Patient Walk: Yes (Knee Scooter) Walk 10 feet (QC): 6 Walk 50ft with 2 Turns (QC): 6 Walk 150 ft (QC): 6 Walking 10ft on Uneven Surface: 6 1 Step (curb) (QC): 6 4 Steps (QC): 88 12 Steps (QC): 88 Picking up an Object (QC): 2 Does the Pt use WC or Scooter?: Yes Wheel 50 feet with 2 turns (QC: 6 Type: Manual Wheel 150 feet: 6 Type: Manual PT Plan Treatment/Plan Treatment Plan: Continue Plan of Care Treatment Plan: Bed Mobility, Concurrent Therapy, Education, Functional Activity Dallin, Functional Strength, Group Therapy, Gait, Safety, Therapeutic Exercise, Transfers Treatment Duration: Jul 20, 2021 Frequency: At least 5 of 7 days/Wk (IRF) Estimated Hrs Per Day: 1.5 hours per day Patient and/or Family Agrees t: Yes Safety Risks/Education Patient Education: Gait Training, Transfer Techniques, Correct Positioning, W/C Management, Safety Issues Time/GCodes Time In: 1300 Time Out: 1330 Total Billed Treatment Time: 30 Total Billed Treatment 1,GT15m,WC15m RADHA LYNN ANIMAL CYTOLOGIST Jun 27, 2021 13:38
[2021-06-27 20:22] VITALS: BP 125/59
[2021-06-27] MEDS: LEVOCETIRIZINE 5 MG TAB (XYZAL) NON-FORMULARY PO SCH (21:15)
[2021-06-27] MEDS: diphenhydrAMINE 25 MG TAB (BENADRYL) PO SCH (21:18)
[2021-06-27] MEDS: MULTIVIT W/MINERALS TAB (THERAGRAN M) PO SCH (21:18)
[2021-06-28] MEDS: rOPINIRole 1 MG (REQUIP) TABLET PO PRN (03:11)
[2021-06-28] MEDS: LEVOTHYROXINE 112 MCG (LEVOTHROID) TAB PO SCH (06:45)
[2021-06-28] MEDS: LEVOTHYROXINE 25 MCG (LEVOTHROID) TAB PO SCH (06:45)
[2021-06-28] MEDS: rOPINIRole 1 MG (REQUIP) TABLET PO SCH ×3 (06:45→21:20)
--- NOTE | 2021-06-28 07:24 | PM&R Progress Note ---
Subjective HPI/CC On Admission Date Seen by Provider: Jun 28, 2021 Time Seen by Provider: 12:15 Subjective/Events-last exam 06/28/2021: Patient doing really well No major complaints today Right hip much improved Require up in the middle the night works very well for her 06/27/2021: Pt is doing well Received a right hip injection today and he is doing very well with it Requip taken at 1:30 in the morning and that helped a lot Checked meds and labs 06/26/2021: Pt has multiple issues Wants Requip at 2 in the morning Right hip pain will prompt an x-ray and Dr. Anaya consult Checked meds and labs No falls 06/25/2021: Pt is doing a lot better Pain management is successful Potassium is 3.7 on 40 milliequivalents TID in addition to Aldactone Baclofen will be ordered, she has done well on that before due to restless leg syndrome at night Voltaren gel will be placed on hip pain 06/24/2021: Patient doing well Meloxicam will be changed to twice a day schedule instead of as needed Talked about spironolactone and the fact that we started and it was not on her list Check meds and labs No falls 06/23/2021: Patient doing much better Pain is well controlled now that we changed the hydrocodone to 10/325 Bowels are moving yet so I added suppositories and mag citrate Potassium supplement will be increased to 40 mEq twice daily She reportedly takes spironolactone but I did not see that on her home medication list we will start 25 mg daily to protect potassium Review of Systems General: Fatigue, Malaise Objective Exam Vital Signs Vital Signs Date Time Temp Pulse Resp B/P (MAP) Pulse Ox O2 Delivery O2 Flow Rate FiO2 06/28/21 21:44 Room Air 06/28/21 19:50 36.5 83 20 128/72 (90) 98 Capillary Refill : General Appearance: No Apparent Distress, WD/WN, Chronically ill HEENT: PERRL/EOMI, Normal ENT Inspection, Pharynx Normal Neck: Full Range of Motion, Normal Inspection, Non Tender, Supple, Carotid Brui t Respiratory: Chest Non Tender, Lungs Clear, Normal Breath Sounds, No Accessory Muscle Use, No Respiratory Distress Cardiovascular: Regular Rate, Rhythm, No Edema, No Gallop, No JVD, No Murmur, Normal Peripheral Pulses Gastrointestinal: Normal Bowel Sounds, No Organomegaly, No Pulsatile Mass, Non Tender, Soft Back: Normal Inspection, No CVA Tenderness, No Vertebral Tenderness Extremity: Normal Capillary Refill, Normal Inspection, Normal Range of Motion, Non Tender, No Calf Tenderness, No Pedal Edema Neurologic/Psychiatric: Alert, Oriented x3, No Motor/Sensory Deficits, Normal Mood/Affect, outside sales account manager II-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 FIM Transfers Therapy Code Descriptions/Definitions Functional [place] Measure: 0=Not Assessed/NA 4=Minimal Assistance 1=Total Assistance 5=Supervision or Setup 2=Maximal Assistance 6=Modified [place] 3=Moderate Assistance 7=Complete IndependenceSCALE: Activities may be completed with or without assistive devices. 9-Jjwoafmneb-putnwil completes the activity by him/herself with no assistance from a helper. 5-Set-up or Clean-up Assistance-helper sets up or cleans up; patient completes activity. [place] assists only prior to or following the activity. 4-Supervision or Touching Assistance-helper provides verbal cues and/or touching/steadying and/or contact guard assistance as patient completes activity. Assistance may be provided throughout the activity or intermittently. 3-Partial/Moderate Assistance-helper does LESS THAN HALF the effort. [place] lifts, holds or supports trunk or limbs, but provides less than half the effort. 2-Substantial/Maximal Assistance-helper does MORE THAN HALF the effort. [place] lifts or holds trunk or limbs and provides more than half the effort. 8-Zzeewtbrc-emfqqq does ALL the effort. Patient does none of the effort to complete the activity. Or, the assistance of 2 or more helpers is required for the patient to complete the activity. If activity was not attempted, code reason: 7-Patient Refused. 9-Not Applicable-not attempted and the patient did not perform the activity befo re the current illness, exacerbation or injury. 10-Not Attempted due to Environmental Limitations-(lack of equipment, weather re straints, etc.). 88-Not Attempted due to Medical Conditions or Safety Concerns. Roll Left to Right (QC): 6 Sit to Lying (QC): 6 Sit to Stand (QC): 4 Chair/Jvi-on-Jkjef Xfer(QC): 4 Car Transfer (QC): 2 Gait Training Does the Patient Walk?: Yes Distance: 5', 10'x2 Walk 10 feet (QC): 4 Walk 50 ft with 2 Turns(QC): 4 Walk 150 ft (QC): 3 Walking 10ft/uneven surface-QC: 3 Gait Persons Needed: 1 Gait Assistive Device: FWW Wheelchair Training Does the Pt Use a Wheelchair?: Yes Wheel 50 ft with 2 turns (QC): 6 Wheel 150 ft (QC): 6 Type of Wheelchair: Manual Stair Training 1 Step (curb) (QC): 88 4 Steps (QC): 88 12 Steps (QC): 88 Balance Picking up an Object (QC): 1 (Patient attemted and unable to perform safely) ADL-Treatment Eating (QC): 6 Oral Hygiene (QC): 6 Bathing Location: L Arm, R Arm, L Upper Leg, R Upper Leg, L Lower Leg (including foot), R Lower Leg (including foot), Chest, Abdomen, Perineal Area Shower/Bathe Self (QC): 6 Upper Body Dressing (QC): 6 Lower Body Dressing (QC): 2 On/Off Footwear (QC): 3 Toileting Hygiene (QC): 3 (mod A) Toilet Transfer (QC): 3 Assessment/Plan Assessment and Plan Assess & Plan/Chief Complaint Assessment: Right pes planovalgus deformity surgical resolution DVT prophylaxis with Lovenox Hypertension Hyperlipidemia Thyroid disease Postoperative constipation resolved after mag citrate Hypokalemia Right hip pain right hip injection per Dr. Anaya 06/27/2021 Restless leg syndrome Plan: Home meds Rehab protocol Pain control 06/23/2021: Pain control Increase potassium Add Aldactone 06/24/21: Restarted Aldactone Continue increase potassium supplement 06/25/2021: Maintain Aldactone Continue potassium supplement 06/26/2021: Dr. Anaya for right hip pain X-ray of right hip Requip at 2:00am 06/27/2021: Requip Appreciate orthopedic surgery 06/28/2021: Recheck potassium tomorrow Supportive care (1) Pes planovalgus (2) Hypertension (3) Restless leg syndrome (4) Neuropathy (5) Thyroid disease (6) Constipation DIAZ KELLY DO Jun 28, 2021 07:23
[2021-06-28 07:35] VITALS: BP 143/65
[2021-06-28] MEDS: DOCUSATE SODIUM 100 MG (COLACE) CAP PO SCH ×2 (08:06→21:19)
[2021-06-28] MEDS: SENNA W/DOCUSATE (SENOKOT S) TABLET PO SCH ×2 (08:06→21:20)
[2021-06-28] MEDS: amLODIPine 2.5MG (NORVASC) TAB PO SCH (08:06)
[2021-06-28] MEDS: TRIAMTERENE/HCTZ 75-50 (MAXZIDE,DYAZIDE) TABLET PO SCH (08:06)
[2021-06-28] MEDS: KCL 20 MEQ TAB (K-DUR) PO SCH ×3 (08:06→16:48)
[2021-06-28] MEDS: MELOXICAM 7.5 MG (MOBIC) TABLET PO SCH ×2 (08:07→21:20)
[2021-06-28] MEDS: DICLOFENAC 1% GEL 100 GM (VOLTAREN) TUBE TOP SCH ×4 (08:07→21:19)
[2021-06-28] MEDS: SPIRONOLACTONE 25 MG (ALDACTONE) TAB PO SCH (08:07)
[2021-06-28] MEDS: polyethylene glycoL POWDER 17 GM (MIRALAX) PACK PO SCH ×2 (08:07→21:23)
[2021-06-28] MEDS: FLUTICASONE NASAL SPRAY (FLONASE) 16 GM BTL NS SCH ×2 (08:08→21:21)
[2021-06-28] MEDS: FUROSEMIDE 40 MG (LASIX) TAB PO SCH ×2 (08:11→15:04)
--- NOTE | 2021-06-28 10:25 | Occupational Ther Daily Note ---
OT Current Status-Daily Note Subjective Pt alert, lying in bed. Pt agrees to therapy. No c/o pain. Daughter present in room. Mental Status/Objective Patient Orientation: Person, Place, Time ADL-Treatment Pt declines shower today. Pt attempted to use knee scooter to transfer from bed then using it to transfer onto toilet. While comparing ARU's bathroom arrangement to home environment, it was decided by pt's daughter and pt that using the w/c to get to door of home bathroom then have FWW in bathroom (due to narrowness of door) will be easier than to attempting to maneuver knee scooter in small area. Pt's toilet is right beside wall/door of bathroom and using FWW for a hopping SPT transfer is more efficient and safer that using knee scooter. Pt is able to cleanse self on toilet then stands with FWW to stabilize while hiking pants over hips, SBA for safety. Pt then hopped with FWW to w/c and used w/c to get back to EOB to don clothing. Pt is able to gather clothing at w/c level. Independent with upper body dressing and oral care sitting in w/c. Sitting EOB then long sitting in bed, pt able to complete threading clothing over feet. Pt takes increased time to complete this due to tightness of clothing pt prefers. SBA while pt stand with support from FWW and back of B LE's bracing on bed to hike pants over hips. Pt using sock aide to don compression stocking which requires min A to place sock onto sock aide and verba l cues for technique. Dons/doffs shoes by self. Therapy Code Descriptions/Definitions Functional [place] Measure: 0=Not Assessed/NA 4=Minimal Assistance 1=Total Assistance 5=Supervision or Setup 2=Maximal Assistance 6=Modified [place] 3=Moderate Assistance 7=Complete IndependenceSCALE: Activities may be completed with or without assistive devices. 8-Iimkgagvji-dptnhxe completes the activity by him/herself with no assistance from a helper. 5-Set-up or Clean-up Assistance-helper sets up or cleans up; patient completes activity. [place] assists only prior to or following the activity. 4-Supervision or Touching Assistance-helper provides verbal cues and/or touching/steadying and/or contact guard assistance as patient completes activity. Assistance may be provided throughout the activity or intermittently. 3-Partial/Moderate Assistance-helper does LESS THAN HALF the effort. [place] lifts, holds or supports trunk or limbs, but provides less than half the effort. 2-Substantial/Maximal Assistance-helper does MORE THAN HALF the effort. [place] lifts or holds trunk or limbs and provides more than half the effort. 6-Lluisvtpg-gkyiga does ALL the effort. Patient does none of the effort to complete the activity. Or, the assistance of 2 or more helpers is required for the patient to complete the activity. If activity was not attempted, code reason: 7-Patient Refused. 9-Not Applicable-not attempted and the patient did not perform the activity before the current illness, exacerbation or injury. 10-Not Attempted due to Environmental Limitations-(lack of equipment, weather restraints, etc.). 88-Not Attempted due to Medical Conditions or Safety Concerns. Eating (QC): 6 Oral Hygiene (QC): 6 Upper Body Dressing (QC): 6 Lower Body Dressing (QC): 4 On/Off Footwear: 4 Toileting Hygiene (QC): 4 Other Treatment Pt then propelled w/c to therapy gym independently. Arm bike completed at 25 chavarria resistance for 15 min without breaks to increase B UE strength and activity tolerance for daily functional tasks. Resistive theraputty for netezza developer and pinch by finding small beads and placing in designated area. PT took over care of pt in therapy gym. All needs met. OT Short Term Goals Short Term Goals Time Frame: Jul 13, 2021 Shower/bathe self: 3 Lower body dressin Putting on/taking off footwear: 3 OT Cable Mock Up Assembler Goals Cable Mock Up Assembler Goals Time Frame: Jul 20, 2021 Eating (QC): 6 Oral Hygiene (QC): 6 Toileting Hygiene (QC): 6 Shower/Bathe Self (QC): 6 Upper Body Dressing (QC): 6 Lower Body Dressing (QC): 6 On/Off Footwear (QC): 6 Additional Goals: 1-Demonstrate ADL Tasks, 2-Verbalize Understanding, 3- ImproveStrength/Dallin 1=Demonstrate adherence to instructed precautions during ADL tasks. 2=Patient will verbalize/demonstrate understanding of assistive devices/modifications for ADL. 3=Patient will improve strength/tolerance for activity to enable patient to perform ADL's. OT Education/Plan Problem List/Assessment Assessment: Decreased Activ Tolerance, Decreased UE Strength, Impaired Self- Care Skills Discharge Recommendations Plan/Recommendations: Continue POC Treatment Plan/Plan of Care Patient would benefit from OT for education, treatment and training to promote independence in ADL's, mobility, safety and/or upper extremity function for ADL's. Plan of Care: ADL Retraining, Functional Mobility, Group Exercise/Act as Ind, UE Funct Exercise/Act Treatment Duration: Jul 20, 2021 Frequency: At least 5 of 7 days/Wk (IRF) Estimated Hrs Per Day: 1.5 hours per day Agreement: Yes Rehab Potential: Fair Time/GCodes Start Time: 08:30 Stop Time: 10:00 Total Time Billed (hr/min): 90 Billed Treatment Time 1 visit-ADL 5 (70 min) EX 1 (20 min) REGLA DOUGLAS Jun 28, 2021 10:25
--- NOTE | 2021-06-28 11:08 | Physical Therapy Daily Note ---
PT Daily Note-Current Subjective Pt sitting in [facility] in Therapy Gym after just finishing w/OT. Pt agrees to PT. Mental Status Patient Orientation: Person, Place, Time, Situation Attachments: Other-See Comments (Splint for R LE) Transfers SCALE: Activities may be completed with or without assistive devices. 9-Mefiddkfir-qioszir completes the activity by him/herself with no assistance from a helper. 5-Set-up or Clean-up Assistance-helper sets up or cleans up; patient completes activity. [place] assists only prior to or following the activity. 4-Supervision or Touching Assistance-helper provides verbal cues and/or touching/steadying and/or contact guard assistance as patient completes activity. Assistance may be provided throughout the activity or intermittently. 3-Partial/Moderate Assistance-helper does LESS THAN HALF the effort. [place] lifts, holds or supports trunk or limbs, but provides less than half the effort. 2-Substantial/Maximal Assistance-helper does MORE THAN HALF the effort. [place] lifts or holds trunk or limbs and provides more than half the effort. 6-Fqydvruop-ysfrwm does ALL the effort. Patient does none of the effort to complete the activity. Or, the assistance of 2 or more helpers is required for the patient to complete the activity. If activity was not attempted, code reason: 7-Patient Refused. 9-Not Applicable-not attempted and the patient did not perform the activity before the current illness, exacerbation or injury. 10-Not Attempted due to Environmental Limitations-(lack of equipment, weather restraints, etc.). 88-Not Attempted due to Medical Conditions or Safety Concerns. Sit to Stand (QC): 5 Car Transfer (QC): 4 Weight Bearing Right Lower Extremity: Right Non Weight Bearing Left Lower Extremity: Left Full Weight Bearing Gait Training Does the Patient Walk?: Yes Distance: 5' x2 Walk 10 feet (QC): 4 Gait Persons Needed: 1 Gait Assistive Device: FWW Wheelchair Training Does the Pt Use a Wheelchair?: Yes Wheel 50 ft with 2 turns (QC): 6 Wheel 150 ft (QC): 6 Type of Wheelchair: Manual Exercises Seated Therapy Exercises: Ankle pumps (R side only), Long arc quads, Hip flexion, Hip abd/add, Glut set Seated Reps: 15 NuStep Minutes: 15 NuStep Workload: 10 Treatments Pt uses NuStep for 15m at WL 10, followed by short RB. Pt TF back to [facility] then completes Seated EX. Pt propels [facility] in hallway, completes car transfer before returning to room to rest in [facility]. All needs met, call light in hand. Assessment Current Status: Good Progress Pt nitza. tx well and is gaining independence and proficiency of tasks including transfers. PT Short Term Goals Short Term Goals Time Frame: Jul 06, 2021 Roll Left & Right: 4 Sit to lyin Lying to sitting on side of be: 4 Sit to stand: 4 Chair/fwu-su-tsojw transfer: 4 Toilet transfer: 4 Car transfer: 4 Walk 10 feet: 4 Walk 50 feet with two turns: 4 Walk 150 feet: 4 Walking 10ft on uneven surface: 4 1 step (curb): 2 Picking up objects: 2 Does pt use a wc or scooter: Yes Wheel 50ft w/2 turns: 4 Wheel 150 feet: 4 Type: Manual PT Detention Goals Client Services Director Goals PT Detention Goals Time Frame: Jul 20, 2021 Roll Left & Right (QC): 6 Sit to Lying (QC): 6 Lying-Sitting on Side/Bed(QC): 6 Sit to Stand (QC): 6 Chair/Bpo-mk-Retmn Xfer(QC): 6 Toilet Transfer (QC): 6 Car Transfer (QC): 6 Does the Patient Walk: Yes (Knee Scooter) Walk 10 feet (QC): 6 Walk 50ft with 2 Turns (QC): 6 Walk 150 ft (QC): 6 Walking 10ft on Uneven Surface: 6 1 Step (curb) (QC): 6 4 Steps (QC): 88 12 Steps (QC): 88 Picking up an Object (QC): 2 Does the Pt use WC or Scooter?: Yes Wheel 50 feet with 2 turns (QC: 6 Type: Manual Wheel 150 feet: 6 Type: Manual PT Plan Treatment/Plan Treatment Plan: Continue Plan of Care Treatment Plan: Bed Mobility, Concurrent Therapy, Education, Functional Activity Dallin, Functional Strength, Group Therapy, Gait, Safety, Therapeutic Exercise, Transfers Treatment Duration: Jul 20, 2021 Frequency: At least 5 of 7 days/Wk (IRF) Estimated Hrs Per Day: 1.5 hours per day Patient and/or Family Agrees t: Yes Safety Risks/Education Patient Education: Correct Positioning Teaching Recipient: Patient Teaching Methods: Discussion Response to Teaching: Verbalize Understanding Time/GCodes Time In: 1000 Time Out: 1100 Total Billed Treatment Time: 60 Total Billed Treatment 1, EX x2 (30m), [facility] (15m) & FA (15m) ANA RICK PTA Jun 28, 2021 11:08
[2021-06-28] MEDS: ENOXAPARIN 40 MG/0.4 ML (LOVENOX) SYR SC SCH (11:21)
--- NOTE | 2021-06-28 13:25 | Physical Therapy Daily Note ---
PT Daily Note-Current Subjective Pt sitting in [facility] in room upon arrival. Pt agrees to PT. Mental Status Patient Orientation: Person, Place, Time, Situation Transfers SCALE: Activities may be completed with or without assistive devices. 1-Uygjqyplmd-rgummqz completes the activity by him/herself with no assistance from a helper. 5-Set-up or Clean-up Assistance-helper sets up or cleans up; patient completes activity. [place] assists only prior to or following the activity. 4-Supervision or Touching Assistance-helper provides verbal cues and/or touching/steadying and/or contact guard assistance as patient completes activity. Assistance may be provided throughout the activity or intermittently. 3-Partial/Moderate Assistance-helper does LESS THAN HALF the effort. [place] lifts, holds or supports trunk or limbs, but provides less than half the effort. 2-Substantial/Maximal Assistance-helper does MORE THAN HALF the effort. [place] lifts or holds trunk or limbs and provides more than half the effort. 4-Ojtjwxqnt-duqzqb does ALL the effort. Patient does none of the effort to complete the activity. Or, the assistance of 2 or more helpers is required for the patient to complete the activity. If activity was not attempted, code reason: 7-Patient Refused. 9-Not Applicable-not attempted and the patient did not perform the activity before the current illness, exacerbation or injury. 10-Not Attempted due to Environmental Limitations-(lack of equipment, weather restraints, etc.). 88-Not Attempted due to Medical Conditions or Safety Concerns. Weight Bearing Right Lower Extremity: Right Non Weight Bearing Left Lower Extremity: Left Full Weight Bearing Treatments Pt reviews TF of tub transfer bench, issued written HEP for Supine & Seated EX and any other concern pt nervous about during tx. All needs met, call light next to pt. Pt wants to remain in [facility]. Assessment Current Status: Good Progress Pt asks many questions to make sure everything will be ready for d/c on Friday. PT Short Term Goals Short Term Goals Time Frame: Jul 06, 2021 Roll Left & Right: 4 Sit to lyin Lying to sitting on side of be: 4 Sit to stand: 4 Chair/glr-ml-tkcti transfer: 4 Toilet transfer: 4 Car transfer: 4 Walk 10 feet: 4 Walk 50 feet with two turns: 4 Walk 150 feet: 4 Walking 10ft on uneven surface: 4 1 step (curb): 2 Picking up objects: 2 Does pt use a wc or scooter: Yes Wheel 50ft w/2 turns: 4 Wheel 150 feet: 4 Type: Manual PT Retail General Manager Goals Correction Goals PT Correction Goals Time Frame: Jul 20, 2021 Roll Left & Right (QC): 6 Sit to Lying (QC): 6 Lying-Sitting on Side/Bed(QC): 6 Sit to Stand (QC): 6 Chair/Kox-wm-Bhngh Xfer(QC): 6 Toilet Transfer (QC): 6 Car Transfer (QC): 6 Does the Patient Walk: Yes (Knee Scooter) Walk 10 feet (QC): 6 Walk 50ft with 2 Turns (QC): 6 Walk 150 ft (QC): 6 Walking 10ft on Uneven Surface: 6 1 Step (curb) (QC): 6 4 Steps (QC): 88 12 Steps (QC): 88 Picking up an Object (QC): 2 Does the Pt use WC or Scooter?: Yes Wheel 50 feet with 2 turns (QC: 6 Type: Manual Wheel 150 feet: 6 Type: Manual PT Plan Treatment/Plan Treatment Plan: Continue Plan of Care Treatment Plan: Bed Mobility, Concurrent Therapy, Education, Functional Activity Dallin, Functional Strength, Group Therapy, Gait, Safety, Therapeutic Exercise, Transfers Treatment Duration: Jul 20, 2021 Frequency: At least 5 of 7 days/Wk (IRF) Estimated Hrs Per Day: 1.5 hours per day Patient and/or Family Agrees t: Yes Time/GCodes Time In: 1230 Time Out: 1300 Total Billed Treatment Time: 30 Total Billed Treatment 1, FA (15m), EX (15m) ANA RICK FACS TEACHER Jun 28, 2021 13:25
[2021-06-28 19:50] VITALS: BP 128/72
[2021-06-28] MEDS: MULTIVIT W/MINERALS TAB (THERAGRAN M) PO SCH (21:20)
[2021-06-28] MEDS: diphenhydrAMINE 25 MG TAB (BENADRYL) PO SCH (21:20)
[2021-06-28] MEDS: LEVOCETIRIZINE 5 MG TAB (XYZAL) NON-FORMULARY PO SCH (21:21)
[2021-06-28] MEDS: CALCIUM CARBONATE 500 MG (TUMS) TAB.CHEW PO PRN (21:30)
[2021-06-29] MEDS: rOPINIRole 1 MG (REQUIP) TABLET PO PRN (01:31)
[2021-06-29] MEDS: LEVOTHYROXINE 112 MCG (LEVOTHROID) TAB PO SCH (06:26)
[2021-06-29] MEDS: LEVOTHYROXINE 25 MCG (LEVOTHROID) TAB PO SCH (06:26)
[2021-06-29 06:27] LABS: POTASSIUM 3.6 MMOL/L (3.6-5.0)
[2021-06-29] MEDS: rOPINIRole 1 MG (REQUIP) TABLET PO SCH ×3 (06:27→21:16)
[2021-06-29 06:29] LABS: CALCIUM 9.7 MG/DL (8.5-10.1)
--- NOTE | 2021-06-29 06:32 | PM&R Progress Note ---
Subjective HPI/CC On Admission Date Seen by Provider: Jun 29, 2021 Time Seen by Provider: 12:00 Subjective/Events-last exam 06/29/21: Patient doing well No major issues Pain is under control Bowels are moving Daughter who is a nurse is concerned about her going home but she thinks she is doing well and I did express her concerns to therapy. The patient's mobility limitation cannot be sufficiently resolved by the use of an appropriately fitted cane or walker, and use of a manual wheelchair will significantly improve the patient's ability to participate in MRADLs and the patient will use it on a regular basis in the home, and the patient has sufficient upper extremity function and other physical and mental capabilities needed to safely self-propel the manual wheelchair that is provided in the home during a typical day. 06/28/2021: Patient doing really well No major complaints today Right hip much improved Require up in the middle the night works very well for her 06/27/2021: Pt is doing well Received a right hip injection today and he is doing very well with it Requip taken at 1:30 in the morning and that helped a lot Checked meds and labs 06/26/2021: Pt has multiple issues Wants Requip at 2 in the morning Right hip pain will prompt an x-ray and Dr. Anaya consult Checked meds and labs No falls 06/25/2021: Pt is doing a lot better Pain management is successful Potassium is 3.7 on 40 milliequivalents TID in addition to Aldactone Baclofen will be ordered, she has done well on that before due to restless leg syndrome at night Voltaren gel will be placed on hip pain 06/24/2021: Patient doing well Meloxicam will be changed to twice a day schedule instead of as needed Talked about spironolactone and the fact that we started and it was not on her list Check meds and labs No falls 06/23/2021: Patient doing much better Pain is well controlled now that we changed the hydrocodone to 10/325 Bowels are moving yet so I added suppositories and mag citrate Potassium supplement will be increased to 40 mEq twice daily She reportedly takes spironolactone but I did not see that on her home medication list we will start 25 mg daily to protect potassium Review of Systems General: Fatigue, Malaise Musculoskeletal: leg pain Objective Exam Vital Signs Vital Signs Date Time Temp Pulse Resp B/P (MAP) Pulse Ox O2 Delivery O2 Flow Rate FiO2 06/29/21 20:10 Room Air 06/29/21 20:00 36.4 80 16 141/63 (89) 99 Capillary Refill : General Appearance: No Apparent Distress, WD/WN, Chronically ill HEENT: PERRL/EOMI, Normal ENT Inspection, Pharynx Normal Neck: Full Range of Motion, Normal Inspection, Non Tender, Supple, Carotid Bruit Respiratory: Chest Non Tender, Lungs Clear, Normal Breath Sounds, No Accessory Muscle Use, No Respiratory Distress Cardiovascular: Regular Rate, Rhythm, No Edema, No Gallop, No JVD, No Murmur, Normal Peripheral Pulses Gastrointestinal: Normal Bowel Sounds, No Organomegaly, No Pulsatile Mass, Non Tender, Soft Back: Normal Inspection, No CVA Tenderness, No Vertebral Tenderness Extremity: Normal Capillary Refill, Normal Inspection, Normal Range of Motion, Non Tender, No Calf Tenderness, No Pedal Edema Neurologic/Psychiatric: Alert, Oriented x3, No Motor/Sensory Deficits, Normal Mood/Affect, asw/asuw tactical air controller II-XII Norm as Tested, Other (Unable to bear weight on right foot) Skin: Normal Color, Warm/Dry Lymphatic: No Adenopathy Results/Procedures Lab Laboratory Tests 06/29/21 06:00 Patient resulted labs reviewed. FIM Transfers Therapy Code Descriptions/Definitions Functional [place] Measure: 0=Not Assessed/NA 4=Minimal Assistance 1=Total Assistance 5=Supervision or Setup 2=Maximal Assistance 6=Modified [place] 3=Moderate Assistance 7=Complete IndependenceSCALE: Activities may be completed with or without assistive devices. 4-Bqtqfbskeu-ecxxiru completes the activity by him/herself with no assistance from a helper. 5-Set-up or Clean-up Assistance-helper sets up or cleans up; patient completes activity. [place] assists only prior to or following the activity. 4-Supervision or Touching Assistance-helper provides verbal cues and/or touching/steadying and/or contact guard assistance as patient completes activity. Assistance may be provided throughout the activity or intermittently. 3-Partial/Moderate Assistance-helper does LESS THAN HALF the effort. [place] lifts, holds or supports trunk or limbs, but provides less than half the effort. 2-Substantial/Maximal Assistance-helper does MORE THAN HALF the effort. [place] lifts or holds trunk or limbs and provides more than half the effort. 6-Fuyyiidiv-rozofq does ALL the effort. Patient does none of the effort to complete the activity. Or, the assistance of 2 or more helpers is required for the patient to complete the activity. If activity was not attempted, code reason: 7-Patient Refused. 9-Not Applicable-not attempted and the patient did not perform the activity before the current illness, exacerbation or injury. 10-Not Attempted due to Environmental Limitations-(lack of equipment, weather restraints, etc.). 88-Not Attempted due to Medical Conditions or Safety Concerns. Roll Left to Right (QC): 6 Sit to Lying (QC): 6 Sit to Stand (QC): 5 Chair/Uep-hn-Jocqx Xfer(QC): 4 Car Transfer (QC): 4 Gait Training Does the Patient Walk?: Yes Distance: 5' x2 Walk 10 feet (QC): 4 Walk 50 ft with 2 Turns(QC): 4 Walk 150 ft (QC): 3 Walking 10ft/uneven surface-QC: 3 Gait Persons Needed: 1 Gait Assistive Device: FWW Wheelchair Training Does the Pt Use a Wheelchair?: Yes Wheel 50 ft with 2 turns (QC): 6 Wheel 150 ft (QC): 6 Type of Wheelchair: Manual Stair Training 1 Step (curb) (QC): 88 4 Steps (QC): 88 12 Steps (QC): 88 Balance Picking up an Object (QC): 1 (Patient attemted and unable to perform safely) ADL-Treatment Eating (QC): 6 Oral Hygiene (QC): 6 Bathing Location: L Arm, R Arm, L Upper Leg, R Upper Leg, L Lower Leg (including foot), R Lower Leg (including foot), Chest, Abdomen, Perineal Area Shower/Bathe Self (QC): 6 Upper Body Dressing (QC): 6 Lower Body Dressing (QC): 4 On/Off Footwear (QC): 4 Toileting Hygiene (QC): 4 Toilet Transfer (QC): 3 Assessment/Plan Assessment and Plan Assess & Plan/Chief Complaint Assessment: Right pes planovalgus deformity surgical resolution DVT prophylaxis with Lovenox Hypertension Hyperlipidemia Thyroid disease Postoperative constipation resolved after mag citrate Hypokalemia Right hip pain right hip injection per Dr. Anaya 06/27/2021 Restless leg syndrome Plan: Home meds Rehab protocol Pain control 06/23/2021: Pain control Increase potassium Add Aldactone 06/24/21: Restarted Aldactone Continue increase potassium supplement 06/25/2021: Maintain Aldactone Continue potassium supplement 06/26/2021: Dr. Anaya for right hip pain X-ray of right hip Requip at 2:00am 06/27/2021: Requip Appreciate orthopedic surgery 06/28/2021: Recheck potassium tomorrow Supportive care 06/29/2021: Potassium good Supportive care (1) Pes planovalgus (2) Hypertension (3) Restless leg syndrome (4) Neuropathy (5) Thyroid disease (6) Constipation DIAZ KELLY DO Jun 29, 2021 06:31
[2021-06-29 06:33] LABS: CREATININE SERUM 0.85 MG/DL (0.60-1.30)
[2021-06-29 08:04] VITALS: BP 147/76
[2021-06-29] MEDS: SENNA W/DOCUSATE (SENOKOT S) TABLET PO SCH ×2 (08:43→21:16)
[2021-06-29] MEDS: DOCUSATE SODIUM 100 MG (COLACE) CAP PO SCH ×2 (08:43→21:16)
[2021-06-29] MEDS: TRIAMTERENE/HCTZ 75-50 (MAXZIDE,DYAZIDE) TABLET PO SCH (08:43)
[2021-06-29] MEDS: DICLOFENAC 1% GEL 100 GM (VOLTAREN) TUBE TOP SCH ×4 (08:43→21:14)
[2021-06-29] MEDS: MELOXICAM 7.5 MG (MOBIC) TABLET PO SCH ×2 (08:44→21:17)
[2021-06-29] MEDS: KCL 20 MEQ TAB (K-DUR) PO SCH ×3 (08:44→18:06)
[2021-06-29] MEDS: amLODIPine 2.5MG (NORVASC) TAB PO SCH (08:44)
[2021-06-29] MEDS: polyethylene glycoL POWDER 17 GM (MIRALAX) PACK PO SCH ×2 (08:44→19:39)
[2021-06-29] MEDS: SPIRONOLACTONE 25 MG (ALDACTONE) TAB PO SCH (08:44)
[2021-06-29] MEDS: FLUTICASONE NASAL SPRAY (FLONASE) 16 GM BTL NS SCH ×2 (08:45→21:15)
[2021-06-29] MEDS: FUROSEMIDE 40 MG (LASIX) TAB PO SCH ×2 (08:47→14:46)
[2021-06-29] MEDS: CALCIUM CARBONATE 500 MG (TUMS) TAB.CHEW PO PRN ×2 (09:17→21:14)
--- NOTE | 2021-06-29 09:59 | Physical Therapy Daily Note ---
PT Daily Note-Current Subjective Patient sitting EOB pre tx, agrees to PT, states "not much" when asked if she has any pain in her right leg. Will be co-treating with OT due to poor patient mobility, strength, endurance, poor safety awareness, coordinate UE and LE during activity, safety and reduce risk of falls. Appearance Patient in WC in room post tx with nurse call and tray Mental Status Patient Orientation: Person, Place, Situation Transfers SCALE: Activities may be completed with or without assistive devices. 3-Zibzgblqch-ecleqhq completes the activity by him/herself with no assistance from a helper. 5-Set-up or Clean-up Assistance-helper sets up or cleans up; patient completes activity. [place] assists only prior to or following the activity. 4-Supervision or Touching Assistance-helper provides verbal cues and/or touching/steadying and/or contact guard assistance as patient completes activity. Assistance may be provided throughout the activity or intermittently. 3-Partial/Moderate Assistance-helper does LESS THAN HALF the effort. [place] lifts, holds or supports trunk or limbs, but provides less than half the effort. 2-Substantial/Maximal Assistance-helper does MORE THAN HALF the effort. [place] lifts or holds trunk or limbs and provides more than half the effort. 7-Mfhfcslqv-kvlciw does ALL the effort. Patient does none of the effort to complete the activity. Or, the assistance of 2 or more helpers is required for the patient to complete the activity. If activity was not attempted, code reason: 7-Patient Refused. 9-Not Applicable-not attempted and the patient did not perform the activity before the current illness, exacerbation or injury. 10-Not Attempted due to Environmental Limitations-(lack of equipment, weather restraints, etc.). 88-Not Attempted due to Medical Conditions or Safety Concerns. Roll Left & Right (QC): 6 Sit to Lying (QC): 6 Lying to Sitting/Side of Bed(Q: 6 Sit to Stand (QC): 4 Chair/Tah-yz-Ygtjc Xfer(QC): 4 Toilet Transfer (QC): 4 Car Transfer (QC): 4 Patient performs rolling and supine <-> sit with independence, sit <-> stand and transfers SBA, car transfers SBA. Patient has some difficulty with car transfer turning to get legs in, but can do it without assist and just cues for positioning. She does have some occasional unsteadiness with transfers but no LOB. Weight Bearing Right Lower Extremity: Right Non Weight Bearing Left Lower Extremity: Left Full Weight Bearing Gait Training Distance: 15'x3 Walk 10 feet (QC): 4 Walk 50 ft with 2 Turns(QC): 88 Walk 150 ft (QC): 88 Walking 10ft/uneven surface-QC: 4 Gait Persons Needed: 1 Gait Assistive Device: FWW Patient can ambulate 15' with a rolling walker with SBA and can ambulate 10' over an uneven surface with CGA. Patient is fairly unsteady on an uneven surface but didn't lose her balance, she had trouble stepping up onto the mat which is only about 1 inch tall and she said doing that made her nervous. Patient is compliant with NWB on right leg during ambulation, her hops are a little uncoordinated. Patient also practiced transition from a flat floor to carpet and had no difficulty but it was a very short carpet. Wheelchair Training Does the Pt Use a Wheelchair?: Yes Wheel 50 ft with 2 turns (QC): 6 Wheel 150 ft (QC): 6 Type of Wheelchair: Manual Stair Training 1 Step (curb) (QC): 88 4 Steps (QC): 88 12 Steps (QC): 88 Balance Picking up an Object (QC): 4 (SBA using a inorganic chemistry teacher) Exercises Patient also performed a standing balance activity simulating getting pants down and up x2 Treatments PT performed bed mobility and transfers, ambulation, WC mobility, standing and balance during balance activity, OT performed balance activity, safety and positioning cues, UE positioning and safety during activity. Assessment Current Status: Fair Progress Patient has been making slow progress with functional mobility, she still has some unsteadiness with transfers and ambulation. She would benefit from assistance at home. Her daughter states she had to give her borrowed knee scooter back to its original general dentist/owner. PT Short Term Goals Short Term Goals Time Frame: Jul 06, 2021 Roll Left & Right: 4 Sit to lyin Lying to sitting on side of be: 4 Sit to stand: 4 Chair/zrd-vt-jszop transfer: 4 Toilet transfer: 4 Car transfer: 4 Walk 10 feet: 4 Walk 50 feet with two turns: 4 Walk 150 feet: 4 Walking 10ft on uneven surface: 4 1 step (curb): 2 Picking up objects: 2 Does pt use a wc or scooter: Yes Wheel 50ft w/2 turns: 4 Wheel 150 feet: 4 Type: Manual PT [facility] Goals It Program Manager Goals PT [facility]it[facility] Goals Time Frame: Jul 20, 2021 Roll Left & Right (QC): 6 Sit to Lying (QC): 6 Lying-Sitting on Side/Bed(QC): 6 Sit to Stand (QC): 6 Chair/Psy-sl-Xskfh Xfer(QC): 6 Toilet Transfer (QC): 6 Car Transfer (QC): 6 Does the Patient Walk: Yes (Knee Scooter) Walk 10 feet (QC): 6 Walk 50ft with 2 Turns (QC): 6 Walk 150 ft (QC): 6 Walking 10ft on Uneven Surface: 6 1 Step (curb) (QC): 6 4 Steps (QC): 88 12 Steps (QC): 88 Picking up an Object (QC): 2 Does the Pt use WC or Scooter?: Yes Wheel 50 feet with 2 turns (QC: 6 Type: Manual Wheel 150 feet: 6 Type: Manual PT Plan Problem List Problem List: Activity Tolerance, Functional Strength, Safety, Balance, Gait, Transfer, Bed Mobility, ROM Treatment/Plan Treatment Plan: Continue Plan of Care Treatment Plan: Bed Mobility, Concurrent Therapy, Education, Functional Activity Dallin, Functional Strength, Group Therapy, Gait, Safety, Therapeutic Exercise, Transfers Treatment Duration: Jul 20, 2021 Frequency: At least 5 of 7 days/Wk (IRF) Estimated Hrs Per Day: 1.5 hours per day Patient and/or Family Agrees t: Yes Safety Risks/Education Patient Education: Gait Training, Transfer Techniques, Reviewed Precautions, Correct Positioning, W/C Management, Safety Issues Teaching Recipient: Patient Teaching Methods: Demonstration, Discussion Response to Teaching: Reinforcement Needed Time/GCodes Time In: 0900 Time Out: 1000 Total Billed Treatment Time: 60 Total Billed Treatment 1 visit FA 60' co-treated for 60' PA WHITE PT Jun 29, 2021 09:59
--- NOTE | 2021-06-29 10:22 | Occupational Ther Daily Note ---
OT Current Status-Daily Note Subjective Pt alert, sitting in w/c. Pt agrees to therapy. No c/o pain at this time. Mental Status/Objective Patient Orientation: Person, Place, Time, Situation ADL-Treatment Pt agrees to shower. Pt retrieved all supplies at w/c level. Pt propelled w/c to bathroom door then used FWW to hop to shower with SBA. Tub transfer bench placed in shower to work on transfer in/out of shower. Pt able to complete with verbal cues for safety. Pt completed shower sitting on transfer bench independently using HH shower, grabbars. Pt educated on how to collapse w/c to fit through door while sitting on toilet at home which is right beside bathroom door to use when transferring out of shower. Pt then completed oral care sitting at sink in w/c, independently. Pt then would be able to use w/c and take through 2nd door of bathroom that is on the opposite side of the bathroom and go through multiple rooms to get back to her bedroom that is on the opposite side of the house. Pt transferred from w/c to bed using FWW. Pt then laid in bed to complete lower body drsg and footwear. Pt able to thread clothing over B LE's then use bridging technique to hike pants over hips in supine. Assist to place compression sock on sock aide then pt able to complete rest of task by self including donning regular sock over foot and donning shoe. Independent with upper body dressing. Therapy Code Descriptions/Definitions Functional [place] Measure: 0=Not Assessed/NA 4=Minimal Assistance 1=Total Assistance 5=Supervision or Setup 2=Maximal Assistance 6=Modified [place] 3=Moderate Assistance 7=Complete IndependenceSCALE: Activities may be completed with or without assistive devices. 1-Wlvgdxmtcq-wbxemjp completes the activity by him/herself with no assistance from a helper. 5-Set-up or Clean-up Assistance-helper sets up or cleans up; patient completes activity. [place] assists only prior to or following the activity. 4-Supervision or Touching Assistance-helper provides verbal cues and/or touching/steadying and/or contact guard assistance as patient completes activity. Assistance may be provided throughout the activity or intermittently. 3-Partial/Moderate Assistance-helper does LESS THAN HALF the effort. [place] lifts, holds or supports trunk or limbs, but provides less than half the effort. 2-Substantial/Maximal Assistance-helper does MORE THAN HALF the effort. [place] lifts or holds trunk or limbs and provides more than half the effort. 8-Gwhiwoemd-arzrmp does ALL the effort. Patient does none of the effort to complete the activity. Or, the assistance of 2 or more helpers is required for the patient to complete the activity. If activity was not attempted, code reason: 7-Patient Refused. 9-Not Applicable-not attempted and the patient did not perform the activity before the current illness, exacerbation or injury. 10-Not Attempted due to Environmental Limitations-(lack of equipment, weather restraints, etc.). 88-Not Attempted due to Medical Conditions or Safety Concerns. Eating (QC): 6 Oral Hygiene (QC): 6 Shower/Bathe Self (QC): 6 Upper Body Dressing (QC): 6 Lower Body Dressing (QC): 6 On/Off Footwear: 5 Toileting Hygiene (QC): 4 (SBA in standing while pt hikes pants over hips using FWW and grabbar. Cleanses self sitting on toilet.) Toilet Transfer (QC): 4 (SBA using grabbars, BSC and FWW.) Pt will be using FWW and w/c for safe mobility and functional tasks at home. The knee scooter that pt had borrowed to see if it will be useful is returned to corrections caseworker. Pt and daughter is aware that pt is more safe using w/c for mobility and using FWW in tight places. Pt will need w/c to be able to perform functional daily tasks. Without w/c pt will not be able to access environment or complete any ADLs. Other Treatment Co-treat with PT ([id number]), skills of 2 clinicians required to decrease fall risk while complete complex dynamic standing and mobility tasks. PT focusing on standing, ambulation with FWW and transfer while OT focusing on functional mobility, dynamic standing during tasks and placement of B UE's during mobility. Pt is improving with dynamic standing though 1x due to foot position, pt had LOB and required assistance to right self. Pt then proceeded to complete task 3 more times without any LOB. Pt demonstrating independence with taking off/ putting on leg rest of w/c. See PT notes for mobility progress. After session, pt sitting in w/c with call light/phone in reach. All needs met in room. OT Short Term Goals Short Term Goals Time Frame: Jul 13, 2021 Shower/bathe self: 3 Lower body dressin Putting on/taking off footwear: 3 OT Retirement Goals Retirement Goals Time Frame: Jul 20, 2021 Eating (QC): 6 (met) Oral Hygiene (QC): 6 (met) Toileting Hygiene (QC): 6 (not met) Shower/Bathe Self (QC): 6 (met) Upper Body Dressing (QC): 6 (met) Lower Body Dressing (QC): 6 (met at bed level) On/Off Footwear (QC): 6 (not met) Additional Goals: 1-Demonstrate ADL Tasks, 2-Verbalize Understanding, 3- ImproveStrength/[place] 1=Demonstrate adherence to instructed precautions during ADL tasks. 2=Patient will verbalize/demonstrate understanding of assistive device s/modifications for ADL. 3=Patient will improve strength/tolerance for activity to enable patient to perform ADL's. OT Education/Plan Problem List/Assessment Assessment: Decreased Activ Tolerance, Decreased UE Strength, Impaired Funct Balance, Impaired I ADL's Discharge Recommendations Plan/Recommendations: Continue POC Treatment Plan/Plan of Care Patient would benefit from OT for education, treatment and training to promote independence in ADL's, mobility, safety and/or upper extremity function for ADL's. Plan of Care: ADL Retraining, Functional Mobility, Group Exercise/Act as Ind, UE Funct Exercise/Act Treatment Duration: Jul 20, 2021 Frequency: At least 5 of 7 days/Wk (IRF) Estimated Hrs Per Day: 1.5 hours per day Agreement: Yes Rehab Potential: Fair Time/GCodes Start Time: 08:30 Stop Time: 10:00 Total Time Billed (hr/min): 90 Billed Treatment Time 1 visit-ADL 3 (50 min) FA 3 (40 min) co-treat with PT [id number], individual [id number] REGLA DOUGLSA Jun 29, 2021 10:22
[2021-06-29] MEDS: ENOXAPARIN 40 MG/0.4 ML (LOVENOX) SYR SC SCH (11:38)
[2021-06-29] MEDS ORDERED: SPIR25TA5 PO (13:40)
[2021-06-29] MEDS ORDERED: DOCU100T7 PO (13:40)
[2021-06-29] MEDS ORDERED: CALC10009 PO (13:40)
[2021-06-29] MEDS ORDERED: POTA-179 PO (13:40)
[2021-06-29] MEDS ORDERED: MAGN250T31 PO (13:40)
[2021-06-29] MEDS ORDERED: FAMO20TA5 PO (13:40)
[2021-06-29] MEDS ORDERED: CALC-78 PO (13:40)
[2021-06-29] MEDS ORDERED: DICL20GE TP (13:42)
--- NOTE | 2021-06-29 14:02 | Physical Therapy Daily Note ---
PT Daily Note-Current Subjective Patient in WC in room pre tx, agrees to PT, has no complaints of pain. Appearance Patient in WC in room post tx with nurse call, phone, tray, all needs met. Mental Status Patient Orientation: Person, Place, Situation Transfers SCALE: Activities may be completed with or without assistive devices. 8-Agyrxdiebe-ighqpic completes the activity by him/herself with no assistance from a helper. 5-Set-up or Clean-up Assistance-helper sets up or cleans up; patient completes activity. [place] assists only prior to or following the activity. 4-Supervision or Touching Assistance-helper provides verbal cues and/or touching/steadying and/or contact guard assistance as patient completes activity. Assistance may be provided throughout the activity or intermittently. 3-Partial/Moderate Assistance-helper does LESS THAN HALF the effort. [place] lifts, holds or supports trunk or limbs, but provides less than half the effort. 2-Substantial/Maximal Assistance-helper does MORE THAN HALF the effort. [place] lifts or holds trunk or limbs and provides more than half the effort. 2-Yrtouzpzs-iobymw does ALL the effort. Patient does none of the effort to complete the activity. Or, the assistance of 2 or more helpers is required for the patient to complete the activity. If activity was not attempted, code reason: 7-Patient Refused. 9-Not Applicable-not attempted and the patient did not perform the activity before the current illness, exacerbation or injury. 10-Not Attempted due to Environmental Limitations-(lack of equipment, weather restraints, etc.). 88-Not Attempted due to Medical Conditions or Safety Concerns. Sit to Stand (QC): 4 Chair/Rbd-fq-Nbigy Xfer(QC): 4 SBA, patient performed a stand pivot transfer to the Step and back. Weight Bearing Right Lower Extremity: Right Non Weight Bearing Left Lower Extremity: Left Full Weight Bearing Wheelchair Training Does the Pt Use a Wheelchair?: Yes Wheel 50 ft with 2 turns (QC): 4 Wheel 150 ft (QC): 4 Type of Wheelchair: Manual 150'x2, slow but didn't need assist Exercises NuStep Minutes: 15 NuStep Workload: 8 Treatments transfers, WC mobility, functional strengthening Assessment Current Status: Fair Progress slowly improving functional mobility PT Short Term Goals Short Term Goals Time Frame: Jul 06, 2021 Roll Left & Right: 4 Sit to lyin Lying to sitting on side of be: 4 Sit to stand: 4 Chair/rns-gz-ritoe transfer: 4 Toilet transfer: 4 Car transfer: 4 Walk 10 feet: 4 Walk 50 feet with two turns: 4 Walk 150 feet: 4 Walking 10ft on uneven surface: 4 1 step (curb): 2 Picking up objects: 2 Does pt use a wc or scooter: Yes Wheel 50ft w/2 turns: 4 Wheel 150 feet: 4 Type: Manual PT Prison Goals Softball Player Goals PT Prison Goals Time Frame: Jul 20, 2021 Roll Left & Right (QC): 6 Sit to Lying (QC): 6 Lying-Sitting on Side/Bed(QC): 6 Sit to Stand (QC): 6 Chair/Fhd-ot-Vvodk Xfer(QC): 6 Toilet Transfer (QC): 6 Car Transfer (QC): 6 Does the Patient Walk: Yes (Knee Scooter) Walk 10 feet (QC): 6 Walk 50ft with 2 Turns (QC): 6 Walk 150 ft (QC): 6 Walking 10ft on Uneven Surface: 6 1 Step (curb) (QC): 6 4 Steps (QC): 88 12 Steps (QC): 88 Picking up an Object (QC): 2 Does the Pt use WC or Scooter?: Yes Wheel 50 feet with 2 turns (QC: 6 Type: Manual Wheel 150 feet: 6 Type: Manual PT Plan Problem List Problem List: Activity Tolerance, Functional Strength, Safety, Balance, Gait, Transfer, Bed Mobility, ROM Treatment/Plan Treatment Plan: Continue Plan of Care Treatment Plan: Bed Mobility, Concurrent Therapy, Education, Functional Activity [place], Functional Strength, Group Therapy, Gait, Safety, Therapeutic Exercise, Transfers Treatment Duration: Jul 20, 2021 Frequency: At least 5 of 7 days/Wk (IRF) Estimated Hrs Per Day: 1.5 hours per day Patient and/or Family Agrees t: Yes Safety Risks/Education Patient Education: Transfer Techniques, Correct Positioning, W/C Management, Safety Issues Teaching Recipient: Patient Teaching Methods: Demonstration, Discussion Response to Teaching: Reinforcement Needed Time/GCodes Time In: 1330 Time Out: 1400 Total Billed Treatment Time: 30 Total Billed Treatment 1 visit FA 15' EX 15' PA WHITE PT Jun 29, 2021 14:02
[2021-06-29 20:00] VITALS: BP 141/63
[2021-06-29] MEDS: LEVOCETIRIZINE 5 MG TAB (XYZAL) NON-FORMULARY PO SCH (21:15)
[2021-06-29] MEDS: diphenhydrAMINE 25 MG TAB (BENADRYL) PO SCH (21:16)
[2021-06-29] MEDS: MULTIVIT W/MINERALS TAB (THERAGRAN M) PO SCH (21:16)
[2021-06-29] MEDS: BACLOFEN 10 MG (LIORESAL) TAB PO PRN (21:16)
[2021-06-30] MEDS: rOPINIRole 1 MG (REQUIP) TABLET PO PRN (01:29)
[2021-06-30] MEDS: rOPINIRole 1 MG (REQUIP) TABLET PO SCH ×3 (06:39→20:33)
[2021-06-30] MEDS: LEVOTHYROXINE 112 MCG (LEVOTHROID) TAB PO SCH (06:39)
[2021-06-30] MEDS: LEVOTHYROXINE 25 MCG (LEVOTHROID) TAB PO SCH (06:39)
[2021-06-30 07:11] VITALS: BP 130/60
--- NOTE | 2021-06-30 07:39 | PM&R Progress Note ---
Subjective HPI/CC On Admission Date Seen by Provider: Jun 30, 2021 Time Seen by Provider: 12:00 Subjective/Events-last exam 06/30/2021: Patient doing well Decreasing pain pills Bowels are moving Talked about trying to get a wheelchair since the knee scooter did not work out Checked meds and labs 06/29/21: Patient doing well No major issues Pain is under control Bowels are moving Daughter who is a nurse is concerned about her going home but she thinks she is doing well and I did express her concerns to therapy. The patient's mobility limitation cannot be sufficiently resolved by the use of an appropriately fitted cane or walker, and use of a manual wheelchair will significantly improve the patient's ability to participate in MRADLs and the patient will use it on a regular basis in the home, and the patient has sufficient upper extremity function and other physical and mental capabilities needed to safely self-propel the manual wheelchair that is provided in the home during a typical day. 06/28/2021: Patient doing really well No major complaints today Right hip much improved Require up in the middle the night works very well for her 06/27/2021: Pt is doing well Received a right hip injection today and he is doing very well with it Requip taken at 1:30 in the morning and that helped a lot Checked meds and labs 06/26/2021: Pt has multiple issues Wants Requip at 2 in the morning Right hip pain will prompt an x-ray and Dr. Anaya consult Checked meds and labs No falls 06/25/2021: Pt is doing a lot better Pain management is successful Potassium is 3.7 on 40 milliequivalents TID in addition to Aldactone Baclofen will be ordered, she has done well on that before due to restless leg syndrome at night Voltaren gel will be placed on hip pain 06/24/2021: Patient doing well Meloxicam will be changed to twice a day schedule instead of as needed Talked about spironolactone and the fact that we started and it was not on her list Check meds and labs No falls 06/23/2021: Patient doing much better Pain is well controlled now that we changed the hydrocodone to 10/325 Bowels are moving yet so I added suppositories and mag citrate Potassium supplement will be increased to 40 mEq twice daily She reportedly takes spironolactone but I did not see that on her home medication list we will start 25 mg daily to protect potassium Review of Systems General: Fatigue, Malaise Musculoskeletal: leg pain Objective Exam Vital Signs Vital Signs Date Time Temp Pulse Resp B/P (MAP) Pulse Ox O2 Delivery O2 Flow Rate FiO2 06/30/21 20:10 Room Air 06/30/21 20:00 36.5 81 20 127/58 (81) 97 Capillary Refill : General Appearance: No Apparent Distress, WD/WN, Chronically ill HEENT: PERRL/EOMI, Normal ENT Inspection, Pharynx Normal Neck: Full Range of Motion, Normal Inspection, Non Tender, Supple, Carotid Bruit Respiratory: Chest Non Tender, Lungs Clear, Normal Breath Sounds, No Accessory Muscle Use, No Respiratory Distress Cardiovascular: Regular Rate, Rhythm, No Edema, No Gallop, No JVD, No Murmur, Normal Peripheral Pulses Gastrointestinal: Normal Bowel Sounds, No Organomegaly, No Pulsatile Mass, Non Tender, Soft Back: Normal Inspection, No CVA Tenderness, No Vertebral Tenderness Extremity: Normal Capillary Refill, Normal Inspection, Normal Range of Motion, Non Tender, No Calf Tenderness, No Pedal Edema Neurologic/Psychiatric: Alert, Oriented x3, No Motor/Sensory Deficits, Normal Mood/Affect, picker box operator II-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 FIM Transfers Therapy Code Descriptions/Definitions Functional [place] Measure: 0=Not Assessed/NA 4=Minimal Assistance 1=Total Assistance 5=Supervision or Setup 2=Maximal Assistance 6=Modified [place] 3=Moderate Assistance 7=Complete IndependenceSCALE: Activities may be completed with or without assistive devices. 5-Vhvmejbacv-qluimuk completes the activity by him/herself with no assistance from a helper. 5-Set-up or Clean-up Assistance-helper sets up or cleans up; patient completes activity. [place] assists only prior to or following the activity. 4-Supervision or Touching Assistance-helper provides verbal cues and/or touc atul/steadying and/or contact guard assistance as patient completes activity. Assistance may be provided throughout the activity or intermittently. 3-Partial/Moderate Assistance-helper does LESS THAN HALF the effort. [place] lifts, holds or supports trunk or limbs, but provides less than half the effort. 2-Substantial/Maximal Assistance-helper does MORE THAN HALF the effort. [place] lifts or holds trunk or limbs and provides more than half the effort. 0-Caggbksph-gfgxyg does ALL the effort. Patient does none of the effort to complete the activity. Or, the assistance of 2 or more helpers is required for the patient to complete the activity. If activity was not attempted, code reason: 7-Patient Refused. 9-Not Applicable-not attempted and the patient did not perform the activity before the current illness, exacerbation or injury. 10-Not Attempted due to Environmental Limitations-(lack of equipment, weather restraints, etc.). 88-Not Attempted due to Medical Conditions or Safety Concerns. Roll Left to Right (QC): 6 Sit to Lying (QC): 6 Sit to Stand (QC): 4 Chair/Iyu-nx-Ovyyr Xfer(QC): 4 Car Transfer (QC): 4 Gait Training Does the Patient Walk?: Yes Distance: 15'x3 Walk 10 feet (QC): 4 Walk 50 ft with 2 Turns(QC): 88 Walk 150 ft (QC): 88 Walking 10ft/uneven surface-QC: 4 Gait Persons Needed: 1 Gait Assistive Device: FWW Wheelchair Training Does the Pt Use a Wheelchair?: Yes Wheel 50 ft with 2 turns (QC): 4 Wheel 150 ft (QC): 4 Type of Wheelchair: Manual Stair Training 1 Step (curb) (QC): 88 4 Steps (QC): 88 12 Steps (QC): 88 Balance Picking up an Object (QC): 4 (SBA using a contact printer dry film) ADL-Treatment Eating (QC): 6 Oral Hygiene (QC): 6 Bathing Location: L Arm, R Arm, L Upper Leg, R Upper Leg, L Lower Leg (including foot), R Lower Leg (including foot), Chest, Abdomen, Perineal Area Shower/Bathe Self (QC): 6 Upper Body Dressing (QC): 6 Lower Body Dressing (QC): 6 On/Off Footwear (QC): 5 Toileting Hygiene (QC): 4 (SBA in standing while pt hikes pants over hips using FWW and grabbar. Cleanses self sitting on toilet.) Toilet Transfer (QC): 4 (SBA using ZEYAD salazarC and FWW.) Assessment/Plan Assessment and Plan Assess & Plan/Chief Complaint Assessment: Right pes planovalgus deformity surgical resolution DVT prophylaxis with Lovenox Hypertension Hyperlipidemia Thyroid disease Postoperative constipation resolved after mag citrate Hypokalemia Right hip pain right hip injection per Dr. Anaya 06/27/2021 Restless leg syndrome Plan: Home meds Rehab protocol Pain control 06/23/2021: Pain control Increase potassium Add Aldactone 06/24/21: Restarted Aldactone Continue increase potassium supplement 06/25/2021: Maintain Aldactone Continue potassium supplement 06/26/2021: Dr. Anaya for right hip pain X-ray of right hip Requip at 2:00am 06/27/2021: Requip Appreciate orthopedic surgery 06/28/2021: Recheck potassium tomorrow Supportive care 06/29/2021: Potassium good Supportive care 06/30/2021: Supportive care Decrease pain medication (1) Pes planovalgus (2) Hypertension (3) Restless leg syndrome (4) Neuropathy (5) Thyroid disease (6) Constipation DIAZ KELLY DO Jun 30, 2021 07:39
[2021-06-30] MEDS: MELOXICAM 7.5 MG (MOBIC) TABLET PO SCH ×2 (08:11→20:33)
[2021-06-30] MEDS: amLODIPine 2.5MG (NORVASC) TAB PO SCH (08:11)
[2021-06-30] MEDS: SPIRONOLACTONE 25 MG (ALDACTONE) TAB PO SCH (08:11)
[2021-06-30] MEDS: FUROSEMIDE 40 MG (LASIX) TAB PO SCH ×2 (08:11→15:16)
[2021-06-30] MEDS: TRIAMTERENE/HCTZ 75-50 (MAXZIDE,DYAZIDE) TABLET PO SCH (08:11)
[2021-06-30] MEDS: DOCUSATE SODIUM 100 MG (COLACE) CAP PO SCH ×2 (08:11→20:33)
[2021-06-30] MEDS: KCL 20 MEQ TAB (K-DUR) PO SCH ×3 (08:11→17:21)
[2021-06-30] MEDS: FLUTICASONE NASAL SPRAY (FLONASE) 16 GM BTL NS SCH ×2 (08:12→20:31)
[2021-06-30] MEDS: DICLOFENAC 1% GEL 100 GM (VOLTAREN) TUBE TOP SCH ×4 (08:12→20:32)
[2021-06-30] MEDS: polyethylene glycoL POWDER 17 GM (MIRALAX) PACK PO SCH ×2 (08:53→19:29)
[2021-06-30] MEDS: SENNA W/DOCUSATE (SENOKOT S) TABLET PO SCH ×2 (08:53→20:33)
--- NOTE | 2021-06-30 10:31 | Physical Therapy Daily Note ---
PT Daily Note-Current Subjective Pt agreeable. Pt denies pain. Pt requests to dress prior to treatment. Mental Status Patient Orientation: Person, Place, Situation Transfers SCALE: Activities may be completed with or without assistive devices. 0-Oroocjlran-lkoitxv completes the activity by him/herself with no assistance from a helper. 5-Set-up or Clean-up Assistance-helper sets up or cleans up; patient completes activity. [place] assists only prior to or following the activity. 4-Supervision or Touching Assistance-helper provides verbal cues and/or touching/steadying and/or contact guard assistance as patient completes activity. Assistance may be provided throughout the activity or intermittently. 3-Partial/Moderate Assistance-helper does LESS THAN HALF the effort. [place] lifts, holds or supports trunk or limbs, but provides less than half the effort. 2-Substantial/Maximal Assistance-helper does MORE THAN HALF the effort. [place] lifts or holds trunk or limbs and provides more than half the effort. 6-Japspzwab-qwpiaz does ALL the effort. Patient does none of the effort to complete the activity. Or, the assistance of 2 or more helpers is required for the patient to complete the activity. If activity was not attempted, code reason: 7-Patient Refused. 9-Not Applicable-not attempted and the patient did not perform the activity before the current illness, exacerbation or injury. 10-Not Attempted due to Environmental Limitations-(lack of equipment, weather restraints, etc.). 88-Not Attempted due to Medical Conditions or Safety Concerns. Weight Bearing Right Lower Extremity: Right Non Weight Bearing Left Lower Extremity: Left Full Weight Bearing Gait Training Gait Assistive Device: FWW Pt amb NWB (R) LE 1 x 6ft, 1 x 10' with CGA and FWW Exercises NuStep Minutes: 12 NuStep Workload: 8 Treatments SPT at [facility]. Pt (I) with dressing, managing w/c and leg rest. Assessment Current Status: Excellent Progress Pt able to maintain NWB status throughout treatment. Pt safe with her mobility this morning. Pt fatigues quickly with gait training. Pt back to room sitting in w/c with all needs met and call light in reach. PT Short Term Goals Short Term Goals Time Frame: Jul 06, 2021 Roll Left & Right: 4 Sit to lyin Lying to sitting on side of be: 4 Sit to stand: 4 Chair/tpq-zm-wtddk transfer: 4 Toilet transfer: 4 Car transfer: 4 Walk 10 feet: 4 Walk 50 feet with two turns: 4 Walk 150 feet: 4 Walking 10ft on uneven surface: 4 1 step (curb): 2 Picking up objects: 2 Does pt use a wc or scooter: Yes Wheel 50ft w/2 turns: 4 Wheel 150 feet: 4 Type: Manual PT Healthcare Translator Goals Senior Living Goals PT Senior Living Goals Time Frame: Jul 20, 2021 Roll Left & Right (QC): 6 Sit to Lying (QC): 6 Lying-Sitting on Side/Bed(QC): 6 Sit to Stand (QC): 6 Chair/Hrq-ic-Jhajz Xfer(QC): 6 Toilet Transfer (QC): 6 Car Transfer (QC): 6 Does the Patient Walk: Yes (Knee Scooter) Walk 10 feet (QC): 6 Walk 50ft with 2 Turns (QC): 6 Walk 150 ft (QC): 6 Walking 10ft on Uneven Surface: 6 1 Step (curb) (QC): 6 4 Steps (QC): 88 12 Steps (QC): 88 Picking up an Object (QC): 2 Does the Pt use WC or Scooter?: Yes Wheel 50 feet with 2 turns (QC: 6 Type: Manual Wheel 150 feet: 6 Type: Manual PT Plan Treatment/Plan Treatment Plan: Continue Plan of Care Treatment Plan: Bed Mobility, Concurrent Therapy, Education, Functional Activity Dallin, Functional Strength, Group Therapy, Gait, Safety, Therapeutic Exercise, Transfers Treatment Duration: Jul 20, 2021 Frequency: At least 5 of 7 days/Wk (IRF) Estimated Hrs Per Day: 1.5 hours per day Patient and/or Family Agrees t: Yes Time/GCodes Time In: 830 Time Out: 855 Total Billed Treatment Time: 25 Total Billed Treatment 1, ther ex 12', Gait 10', FA 3' SELIN ANGULO CPTLeeroy Jun 30, 2021 10:31
[2021-06-30] MEDS ORDERED: CALCIUM CARBONATE 500 MG (TUMS) TAB.CHEW PO PRN (12:30)
[2021-06-30] MEDS: ENOXAPARIN 40 MG/0.4 ML (LOVENOX) SYR SC SCH (13:05)
[2021-06-30 20:00] VITALS: BP 127/58
[2021-06-30] MEDS: LEVOCETIRIZINE 5 MG TAB (XYZAL) NON-FORMULARY PO SCH (20:31)
[2021-06-30] MEDS: FAMOTIDINE 20 MG (PEPCID) TABLET PO SCH (20:33)
[2021-06-30] MEDS: diphenhydrAMINE 25 MG TAB (BENADRYL) PO SCH (20:33)
[2021-06-30] MEDS: MULTIVIT W/MINERALS TAB (THERAGRAN M) PO SCH (20:33)
[2021-07-01] MEDS: rOPINIRole 1 MG (REQUIP) TABLET PO PRN (00:43)
[2021-07-01] MEDS: LEVOTHYROXINE 112 MCG (LEVOTHROID) TAB PO SCH (06:34)
[2021-07-01] MEDS: LEVOTHYROXINE 25 MCG (LEVOTHROID) TAB PO SCH (06:34)
[2021-07-01] MEDS: rOPINIRole 1 MG (REQUIP) TABLET PO SCH ×3 (06:35→20:53)
[2021-07-01 07:10] VITALS: BP 138/60
--- NOTE | 2021-07-01 08:34 | PM&R Progress Note ---
Subjective HPI/CC On Admission Date Seen by Provider: Jul 01, 2021 Time Seen by Provider: 12:30 Subjective/Events-last exam 07/01/2021: Supportive care continues Pain is improved Still discussing wheelchair coverage or lack of Sleep very well last night 06/30/2021: Patient doing well Decreasing pain pills Bowels are moving Talked about trying to get a wheelchair since the knee scooter did not work out Checked meds and labs 06/29/21: Patient doing well No major issues Pain is under control Bowels are moving Daughter who is a nurse is concerned about her going home but she thinks she is doing well and I did express her concerns to therapy. The patient's mobility limitation cannot be sufficiently resolved by the use of an appropriately fitted cane or walker, and use of a manual wheelchair will sign ificantly improve the patient's ability to participate in MRADLs and the patient will use it on a regular basis in the home, and the patient has sufficient upper extremity function and other physical and mental capabilities needed to safely self-propel the manual wheelchair that is provided in the home during a typical day. 06/28/2021: Patient doing really well No major complaints today Right hip much improved Require up in the middle the night works very well for her 06/27/2021: Pt is doing well Received a right hip injection today and he is doing very well with it Requip taken at 1:30 in the morning and that helped a lot Checked meds and labs 06/26/2021: Pt has multiple issues Wants Requip at 2 in the morning Right hip pain will prompt an x-ray and Dr. Anaya consult Checked meds and labs No falls 06/25/2021: Pt is doing a lot better Pain management is successful Potassium is 3.7 on 40 milliequivalents TID in addition to Aldactone Baclofen will be ordered, she has done well on that before due to restless leg syndrome at night Voltaren gel will be placed on hip pain 06/24/2021: Patient doing well Meloxicam will be changed to twice a day schedule instead of as needed Talked about spironolactone and the fact that we started and it was not on her list Check meds and labs No falls 06/23/2021: Patient doing much better Pain is well controlled now that we changed the hydrocodone to 10/325 Bowels are moving yet so I added suppositories and mag citrate Potassium supplement will be increased to 40 mEq twice daily She reportedly takes spironolactone but I did not see that on her home medication list we will start 25 mg daily to protect potassium Review of Systems General: Fatigue Musculoskeletal: leg pain Objective Exam Vital Signs Vital Signs Date Time Temp Pulse Resp B/P (MAP) Pulse Ox O2 Delivery O2 Flow Rate FiO2 07/01/21 20:32 36.0 82 18 146/65 (92) 99 Room Air Capillary Refill : General Appearance: No Apparent Distress, WD/WN, Chronically ill HEENT: PERRL/EOMI, Normal ENT Inspection, Pharynx Normal Neck: Full Range of Motion, Normal Inspection, Non Tender, Supple, Carotid Bruit Respiratory: Chest Non Tender, Lungs Clear, Normal Breath Sounds, No Accessory Muscle Use, No Respiratory Distress Cardiovascular: Regular Rate, Rhythm, No Edema, No Gallop, No JVD, No Murmur, Normal Peripheral Pulses Gastrointestinal: Normal Bowel Sounds, No Organomegaly, No Pulsatile Mass, Non Tender, Soft Back: Normal Inspection, No CVA Tenderness, No Vertebral Tenderness Extremity: Normal Capillary Refill, Normal Inspection, Normal Range of Motion, Non Tender, No Calf Tenderness, No Pedal Edema Neurologic/Psychiatric: Alert, Oriented x3, No Motor/Sensory Deficits, Normal Mood/Affect, 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 FIM Transfers Therapy Code Descriptions/Definitions Functional [place] Measure: 0=Not Assessed/NA 4=Minimal Assistance 1=Total Assistance 5=Supervision or Setup 2=Maximal Assistance 6=Modified [place] 3=Moderate Assistance 7=Complete IndependenceSCALE: Activities may be completed with or without assistive devices. 7-Vcimxiovew-eoqzjqp completes the activity by him/herself with no assistance from a helper. 5-Set-up or Clean-up Assistance-helper sets up or cleans up; patient completes activity. [place] assists only prior to or following the activity. 4-Supervision or Touching Assistance-helper provides verbal cues and/or touching/steadying and/or contact guard assistance as patient completes activity. Assistance may be provided throughout the activity or intermittently. 3-Partial/Moderate Assistance-helper does LESS THAN HALF the effort. [place] lifts, holds or supports trunk or limbs, but provides less than half the effort. 2-Substantial/Maximal Assistance-helper does MORE THAN HALF the effort. [place] lifts or holds trunk or limbs and provides more than half the effort. 3-Psevmdtnp-sriloz does ALL the effort. Patient does none of the effort to complete the activity. Or, the assistance of 2 or more helpers is required for the patient to complete the activity. If activity was not attempted, code reason: 7-Patient Refused. 9-Not Applicable-not attempted and the patient did not perform the activity before the current illness, exacerbation or injury. 10-Not Attempted due to Environmental Limitations-(lack of equipment, weather restraints, etc.). 88-Not Attempted due to Medical Conditions or Safety Concerns. Roll Left to Right (QC): 6 Sit to Lying (QC): 6 Sit to Stand (QC): 4 Chair/Idw-dd-Cagwd Xfer(QC): 4 Car Transfer (QC): 4 Gait Training Does the Patient Walk?: Yes Distance: 15'x3 Walk 10 feet (QC): 4 Walk 50 ft with 2 Turns(QC): 88 Walk 150 ft (QC): 88 Walking 10ft/uneven surface-QC: 4 Gait Persons Needed: 1 Gait Assistive Device: FWW Wheelchair Training Does the Pt Use a Wheelchair?: Yes Wheel 50 ft with 2 turns (QC): 4 Wheel 150 ft (QC): 4 Type of Wheelchair: Manual Stair Training 1 Step (curb) (QC): 88 4 Steps (QC): 88 12 Steps (QC): 88 Balance Picking up an Object (QC): 4 (SBA using a gaming pit boss) ADL-Treatment Eating (QC): 6 Oral Hygiene (QC): 6 Bathing Location: L Arm, R Arm, L Upper Leg, R Upper Leg, L Lower Leg (including foot), R Lower Leg (including foot), Chest, Abdomen, Perineal Area Shower/Bathe Self (QC): 6 Upper Body Dressing (QC): 6 Lower Body Dressing (QC): 6 On/Off Footwear (QC): 5 Toileting Hygiene (QC): 4 (SBA in standing while pt hikes pants over hips using FWW and grabbar. Cleanses self sitting on toilet.) Toilet Transfer (QC): 4 (SBA using grabbars, BSC and FWW.) Assessment/Plan Assessment and Plan Assess & Plan/Chief Complaint Assessment: Right pes planovalgus deformity surgical resolution DVT prophylaxis with Lovenox Hypertension Hyperlipidemia Thyroid disease Postoperative constipation resolved after mag citrate Hypokalemia Right hip pain right hip injection per Dr. Anaya 06/27/2021 Restless leg syndrome Plan: Home meds Rehab protocol Pain control 06/23/2021: Pain control Increase potassium Add Aldactone 06/24/21: Restarted Aldactone Continue increase potassium supplement 06/25/2021: Maintain Aldactone Continue potassium supplement 06/26/2021: Dr. Anaya for right hip pain X-ray of right hip Requip at 2:00am 06/27/2021: Requip Appreciate orthopedic surgery 06/28/2021: Recheck potassium tomorrow Supportive care 06/29/2021: Potassium good Supportive care 06/30/2021: Supportive care Decrease pain medication 07/01/2021: Supportive care Discharge plan tomorrow (1) Pes planovalgus (2) Hypertension (3) Restless leg syndrome (4) Neuropathy (5) Thyroid disease (6) Constipation DIAZ KELLY DO Jul 01, 2021 08:34
[2021-07-01] MEDS: FUROSEMIDE 40 MG (LASIX) TAB PO SCH ×2 (08:43→15:00)
[2021-07-01] MEDS: TRIAMTERENE/HCTZ 75-50 (MAXZIDE,DYAZIDE) TABLET PO SCH (08:43)
[2021-07-01] MEDS: DOCUSATE SODIUM 100 MG (COLACE) CAP PO SCH ×2 (08:43→20:52)
[2021-07-01] MEDS: amLODIPine 2.5MG (NORVASC) TAB PO SCH (08:43)
[2021-07-01] MEDS: MELOXICAM 7.5 MG (MOBIC) TABLET PO SCH ×2 (08:43→20:53)
[2021-07-01] MEDS: SPIRONOLACTONE 25 MG (ALDACTONE) TAB PO SCH (08:43)
[2021-07-01] MEDS: FAMOTIDINE 20 MG (PEPCID) TABLET PO SCH ×2 (08:43→20:53)
[2021-07-01] MEDS: KCL 20 MEQ TAB (K-DUR) PO SCH ×3 (08:43→17:43)
[2021-07-01] MEDS: FLUTICASONE NASAL SPRAY (FLONASE) 16 GM BTL NS SCH ×2 (08:44→20:51)
[2021-07-01] MEDS: DICLOFENAC 1% GEL 100 GM (VOLTAREN) TUBE TOP SCH ×4 (08:44→20:51)
[2021-07-01] MEDS: polyethylene glycoL POWDER 17 GM (MIRALAX) PACK PO SCH ×2 (09:07→19:23)
[2021-07-01] MEDS: SENNA W/DOCUSATE (SENOKOT S) TABLET PO SCH ×2 (09:07→20:53)
[2021-07-01] MEDS: ENOXAPARIN 40 MG/0.4 ML (LOVENOX) SYR SC SCH (13:18)
[2021-07-01 20:32] VITALS: BP 146/65
[2021-07-01] MEDS: LEVOCETIRIZINE 5 MG TAB (XYZAL) NON-FORMULARY PO SCH (20:51)
[2021-07-01] MEDS: diphenhydrAMINE 25 MG TAB (BENADRYL) PO SCH (20:52)
[2021-07-01] MEDS: MULTIVIT W/MINERALS TAB (THERAGRAN M) PO SCH (20:53)
[2021-07-02] MEDS: rOPINIRole 1 MG (REQUIP) TABLET PO PRN (01:22)
[2021-07-02] MEDS: diphenhydrAMINE 25 MG TAB (BENADRYL) PO PRN (04:04)
[2021-07-02] MEDS: LEVOTHYROXINE 25 MCG (LEVOTHROID) TAB PO SCH (06:25)
[2021-07-02] MEDS: rOPINIRole 1 MG (REQUIP) TABLET PO SCH ×2 (06:25→14:35)
[2021-07-02] MEDS: LEVOTHYROXINE 112 MCG (LEVOTHROID) TAB PO SCH (06:25)
[2021-07-02] MEDS ORDERED: BACL10TA PO (06:44)
[2021-07-02] MEDS ORDERED: HYDR-3820 PO (06:44)
[2021-07-02] MEDS ORDERED: ROPI1TAB PO (06:44)
--- NOTE | 2021-07-02 06:46 | Discharge Summary ---
Diagnosis/Chief Complaint Date of Admission Jun 22, 2021 at 13:40 Date of Discharge Discharge Date: Jul 02, 2021 Discharge Diagnosis Assessment: Right pes planovalgus deformity surgical resolution DVT prophylaxis with Lovenox Hypertension Hyperlipidemia Thyroid disease Postoperative constipation resolved after mag citrate Hypokalemia Right hip pain right hip injection per Dr. Anaya 06/27/2021 Restless leg syndrome Plan: Home meds Rehab protocol Pain control 06/23/2021: Pain control Increase potassium Add Aldactone 06/24/21: Restarted Aldactone Continue increase potassium supplement 06/25/2021: Maintain Aldactone Continue potassium supplement 06/26/2021: Dr. Anaya for right hip pain X-ray of right hip Requip at 2:00am 06/27/2021: Requip Appreciate orthopedic surgery 06/28/2021: Recheck potassium tomorrow Supportive care 06/29/2021: Potassium good Supportive care 06/30/2021: Supportive care Decrease pain medication 07/01/2021: Supportive care Discharge plan tomorrow (1) Pes planovalgus (2) Hypertension (3) Restless leg syndrome (4) Neuropathy (5) Thyroid disease (6) Constipation Discharge Summary Discharge Physical Examination Allergies: Coded Allergies: sulfamethoxazole (Verified Allergy, Unknown, 06/22/21) trimethoprim (Verified Allergy, Unknown, 06/22/21) lisinopril (Verified Adverse Reaction, Unknown, 06/22/21) morphine (Verified Adverse Reaction, Unknown, 06/22/21) Vitals & I&Os Vital Signs Date Time Temp Pulse Resp B/P (MAP) Pulse Ox O2 Delivery O2 Flow Rate FiO2 07/02/21 16:00 36.3 78 16 140/65 94 Room Air General Appearance: Alert, Oriented X3, Cooperative Respiratory: Clear to Auscultation Cardiovascular: Regular Rate Psych/Mental Status: Mental Status NL Hospital Course Was the Problem List Reviewed?: Yes Pt had an uneventful 10 day hospital course after she was admitted from , a fter a right foot surgery requiring non weight bearing status. She had done well. We did require Mag citrate and an enema to get bowels moving. She overall did very well. Required a higher dose of potassium while she was hospitalized. She was restarted on her Aldactone 25 mg and placed on an aspirin at discharge for DVT prophylaxis. Wheelchair was obtained. Pt was deemed stable for discharge. Labs (last 24 hrs) Laboratory Tests 06/23/21 05:07: White Blood Count 6.0, Red Blood Count 3.56L, Hemoglobin 10.9L, Hematocrit 32L, Mean Corpuscular Volume 91, Mean Corpuscular Hemoglobin 31, Mean Corpuscular Hemoglobin Concent 34, Red Cell Distribution Width 12.6, Platelet Count 194, Me an Platelet Volume 9.7, Immature Granulocyte % (Auto) 1, Neutrophils (%) (Auto) 69, Lymphocytes (%) (Auto) 16, Monocytes (%) (Auto) 10, Eosinophils (%) (Auto) 4, Basophils (%) (Auto) 1, Neutrophils # (Auto) 4.1, Lymphocytes # (Auto) 1.0, Monocytes # (Auto) 0.6, Eosinophils # (Auto) 0.2, Basophils # (Auto) 0.0, Immature Granulocyte # (Auto) 0.1, Sodium Level 137, Potassium Level 2.8L, Chloride Level 98, Carbon Dioxide Level 28, Anion Gap 11, Blood Urea Nitrogen 17, Creatinine 0.72, Estimat Glomerular Filtration Rate 87, BUN/Creatinine Ratio 24, Glucose Level 110H, Calcium Level 9.2, Corrected Calcium 9.7, Total Bilirubin 0.7, Aspartate Amino Transf (AST/SGOT) 44H, Alanine Aminotransferase (ALT/SGPT) 34, Alkaline Phosphatase 89, Total Protein 6.1L, Albumin 3.4 06/25/21 05:08: White Blood Count 5.7, Red Blood Count 3.62L, Hemoglobin 11.1L, Hematocrit 33L, Mean Corpuscular Volume 92, Mean Corpuscular Hemoglobin 31, Mean Corpuscular Hemoglobin Concent 33, Red Cell Distribution Width 12.8, Platelet Count 211, Mean Platelet Volume 9.6, Immature Granulocyte % (Auto) 2, Neutrophils (%) (Auto) 67, Lymphocytes (%) (Auto) 18, Monocytes (%) (Auto) 11, Eosinophils (%) (Auto) 2, Basophils (%) (Auto) 1, Neutrophils # (Auto) 3.8, Lymphocytes # (Auto) 1.0, Monocytes # (Auto) 0.6, Eosinophils # (Auto) 0.1, Basophils # (Auto) 0.0, Immature Granulocyte # (Auto) 0.1, Sodium Level 135, Potassium Level 3.7, Chloride Level 97L, Carbon Dioxide Level 28, Anion Gap 10, Blood Urea Nitrogen 28H, Creatinine 0.92, Estimat Glomerular Filtration Rate 65, BUN/Creatinine Ratio 30, Glucose Level 96, Calcium Level 9.3, Corrected Calcium 9.6, Total Bilirubin 0.7, Aspartate Amino Transf (AST/SGOT) 48H, Alanine Aminotransferase (ALT/SGPT) 50, Alkaline Phosphatase 95, Total Protein 6.3L, Albumin 3.6, Magnes ium Level 2.2 06/29/21 06:00: Sodium Level 136, Potassium Level 3.6, Chloride Level 101, Carbon Dioxide Level 26, Anion Gap 9, Blood Urea Nitrogen 31H, Creatinine 0.85, Estimat Glomerular Filtration Rate 71, BUN/Creatinine Ratio 36, Glucose Level 88, Calcium Level 9.7 07/02/21 06:02: Sodium Level 134L, Potassium Level 3.7, Chloride Level 99, Carbon Dioxide Level 23, Anion Gap 12, Blood Urea Nitrogen 39H, Creatinine 1.04, Estimat Glomerular Filtration Rate 56, BUN/Creatinine Ratio 38, Glucose Level 84, Calcium Level 9.5, Corrected Calcium 9.7, Total Bilirubin 0.7, Aspartate Amino Transf (AST/SGOT) 22, Alanine Aminotransferase (ALT/SGPT) 27, Alkaline Phosphatase 94, Total Protein 6.4, Albumin 3.8 07/02/21 06:23: White Blood Count 5.8, Red Blood Count 3.85, Hemoglobin 11.7, Hematocrit 36, Mean Corpuscular Volume 93, Mean Corpuscular Hemoglobin 30, Mean Corpuscular Hemoglobin Concent 33, Red Cell Distribution Width 13.3, Platelet Count 257, Mean Platelet Volume 9.7, Immature Granulocyte % (Auto) 1, Neutrophils (%) (Auto) 68, Lymphocytes (%) (Auto) 18, Monocytes (%) (Auto) 9, Eosinophils (%) (Auto) 2, Basophils (%) (Auto) 1, Neutrophils # (Auto) 4.0, Lymphocytes # (Auto) 1.1, Monocytes # (Auto) 0.5, Eosinophils # (Auto) 0.1, Basophils # (Auto) 0.1, Immature Granulocyte # (Auto) 0.1 Pending Labs Laboratory Tests 06/23/21 05:07: White Blood Count 6.0, Red Blood Count 3.56, Hemoglobin 10.9, Hematocrit 32, Mean Corpuscular Volume 91, Mean Corpuscular Hemoglobin 31, Mean Corpuscular Hemoglobin Concent 34, Red Cell Distribution Width 12.6, Platelet Count 194, Mean Platelet Volume 9.7, Immature Granulocyte % (Auto) 1, Neutrophils (%) (Auto) 69, Lymphocytes (%) (Auto) 16, Monocytes (%) (Auto) 10, Eosinophils (%) (Auto) 4, Basophils (%) (Auto) 1, Neutrophils # (Auto) 4.1, Lymphocytes # (Auto) 1.0, Monocytes # (Auto) 0.6, Eosinophils # (Auto) 0.2, Basophils # (Auto) 0.0, Immature Granulocyte # (Auto) 0.1, Sodium Level 137, Potassium Level 2.8, Chloride Level 98, Carbon Dioxide Level 28, Anion Gap 11, Blood Urea Nitrogen 17, Creatinine 0.72, Estimat Glomerular Filtration Rate 87, BUN/Creatinine Ratio 24, Glucose Level 110, Calcium Level 9.2, Corrected Calcium 9.7, Total Bilirubin 0.7, Aspartate Amino Transf (AST/SGOT) 44, Alanine Aminotransferase (ALT/SGPT) 34, Alkaline Phosphatase 89, Total Protein 6.1, Albumin 3.4 06/25/21 05:08: White Blood Count 5.7, Red Blood Count 3.62, Hemoglobin 11.1, Hematocrit 33, Mean Corpuscular Volume 92, Mean Corpuscular Hemoglobin 31, Mean Corpuscular Hemoglobin Concent 33, Red Cell Distribution Width 12.8, Platelet Count 211, Mean Platelet Volume 9.6, Immature Granulocyte % (Auto) 2, Neutrophils (%) (Auto) 67, Lymphocytes (%) (Auto) 18, Monocytes (%) (Auto) 11, Eosinophils (%) (Auto) 2, Basophils (%) (Auto) 1, Neutrophils # (Auto) 3.8, Lymphocytes # (Auto) 1.0, Monocytes # (Auto) 0.6, Eosinophils # (Auto) 0.1, Basophils # (Auto) 0.0, Immature Granulocyte # (Auto) 0.1, Sodium Level 135, Potassium Level 3.7, Chloride Level 97, Carbon Dioxide Level 28, Anion Gap 10, Blood Urea Nitrogen 28, Creatinine 0.92, Estimat Glomerular Filtration Rate 65, BUN/Creatinine Ratio 30, Glucose Level 96, Calcium Level 9.3, Corrected Calcium 9.6, Total Bilirubin 0.7, Aspartate Amino Transf (AST/SGOT) 48, Alanine Aminotransferase (ALT/SGPT) 50, Alkaline Phosphatase 95, Total Protein 6.3, Albumin 3.6, Magnesium Level 2.2 06/29/21 06:00: Sodium Level 136, Potassium Level 3.6, Chloride Level 101, Carbon Dioxide Level 26, Anion Gap 9, Blood Urea Nitrogen 31, Creatinine 0.85, Estimat Glomerular Filtration Rate 71, BUN/Creatinine Ratio 36, Glucose Level 88, Calcium Level 9.7 07/02/21 06:02: Sodium Level 134, Potassium Level 3.7, Chloride Level 99, Carbon Dioxide Level 23, Anion Gap 12, Blood Urea Nitrogen 39, Creatinine 1.04, Estimat Glomerular Filtration Rate 56, BUN/Creatinine Ratio 38, Glucose Level 84, Calcium Level 9.5, Corrected Calcium 9.7, Total Bilirubin 0.7, Aspartate Amino Transf (AST/SGOT) 22, Alanine Aminotransferase (ALT/SGPT) 27, Alkaline Phosphatase 94, Total Protein 6.4, Albumin 3.8 07/02/21 06:23: White Blood Count 5.8, Red Blood Count 3.85, Hemoglobin 11.7, Hematocrit 36, Mean Corpuscular Volume 93, Mean Corpuscular Hemoglobin 30, Mean Corpuscular Hemoglobin Concent 33, Red Cell Distribution Width 13.3, Platelet Count 257, Mean Platelet Volume 9.7, Immature Granulocyte % (Auto) 1, Neutrophils (%) (Auto) 68, Lymphocytes (%) (Auto) 18, Monocytes (%) (Auto) 9, Eosinophils (%) (Auto) 2, Basophils (%) (Auto) 1, Neutrophils # (Auto) 4.0, Lymphocytes # (Auto) 1.1, Monocytes # (Auto) 0.5, Eosinophils # (Auto) 0.1, Basophils # (Auto) 0.1, Immature Granulocyte # (Auto) 0.1 Discharge Home Medications: Active Scripts Active Aspirin EC (Aspirin) 81 Mg Tablet.dr 81 Mg PO DAILY Ropinirole HCl 1 Mg Tablet 1 Mg PO DAILY@0200 PRN 7 Days Baclofen 10 Mg Tablet 10 Mg PO TID PRN Hydrocodone-Acetamin 10-325 mg (Hydrocodone/Acetaminophen) 1 Each Tablet 1 Each PO TID PRN Reported Voltaren Arthritis Pain (Diclofenac Sodium) 20 Gm Gel..gram. 1 Applic TP QID PRN Tums Ultra (Calcium Carbonate) 400 Mg Tab.chew 400-800 Mg PO QID PRN Famotidine 20 Mg Tablet 20 Mg PO HS PRN Stool Softener (Docusate Sodium) 100 Mg Tablet 100 Mg PO BID Magnesium 250 Mg Tablet 250 Mg PO DAILY Calcium 500 + Vit D Caplet (Calcium Carbonate/Vitamin D3) 1 Each Tablet 1 Each PO DAILY Spironolactone 25 Mg Tablet 25 Mg PO DAILY Potassium Chloride 20 Meq Tab.er.prt 40 Meq PO DAILY TAKES 2 (20MEQ) TABS Meloxicam 7.5 Mg Tablet 7.5 Mg PO BID PRN Multivitamin 1 Each Tablet 1 Each PO DAILY Levothyroxine Sodium 137 Mcg Tablet 137 Mcg PO DAILY Flonase Allergy Relief (Fluticasone Propionate) 9.9 Ml [place].susp 1 [place] NSEACH BID Furosemide 40 Mg Tablet 40 Mg PO 0900,1500 Triamterene-Hctz 75-50 mg Tab (Triamterene/Hydrochlorothiazid) 1 Each Tablet 1 Each PO DAILY Potassium Chloride 20 Meq Tablet.er 20 Meq PO HS Ropinirole HCl 1 Mg Tablet 1 Mg PO 0700,1500,2100 Amlodipine Besylate 2.5 Mg Tablet 2.5 Mg PO DAILY Xyzal (Levocetirizine Dihydrochloride) 5 Mg Tablet 5 Mg PO HS Benadryl (Diphenhydramine HCl) 25 Mg Capsule 25 Mg PO HS Instructions to patient/family Please see electronic discharge instructions given to patient. Diagnosis/Problems Diagnosis/Problems (1) Pes planovalgus (2) Hypertension (3) Restless leg syndrome (4) Neuropathy (5) Thyroid disease (6) Constipation DIAZ KELLY DO Jul 02, 2021 06:46
--- NOTE | 2021-07-02 06:46 | D/C HH Face to Face Order ---
D/C HH Face to Face Orders Reconcile Patient Problems Problems Reviewed?: Yes Instructions for Patient HH Patient Instructions/FollowUp: PCP 1 week Physician to follow Patient: PCP Discharge Diet for Home: No Restrictions Patient Problems: Debility Right foot surgery non weight bearing Patient Data-Allergies,Ht & Wt Patient Allergies: Coded Allergies: sulfamethoxazole (Verified Allergy, Unknown, 06/22/21) trimethoprim (Verified Allergy, Unknown, 06/22/21) lisinopril (Verified Adverse Reaction, Unknown, 06/22/21) morphine (Verified Adverse Reaction, Unknown, 06/22/21) Home Health Need/Face to Face Date of Face to Face: Jul 02, 2021 Clinical Findings: Generalized weakness and fatigue, Instability, Muscle weakness I have seen Pt [id number]: Yes Discharged To: Home Diagnosis/Conditions: Debility Patient is Homebound due to: Ana fall risk due to instabilty, Muscle weakness, Non-weight bearing Homebound Status Due to the above stated illness, injury or surgical procedure (medical condition or diagnosis) and associated clinical findings, the patient is homebound because of his/her inability to leave home except with aid of a supportive device and/or person AND leaving the home requires a considerable and taxing effort or is medically contraindicated. Pt req the following assistanc: Wheelchair Home Health Nursing Orders Home Health Services Order: Nursing Services, Half Sole Fitter-Evaluate & Treat, Physical Therapy-Evaluate & Treat Certify Stmt I certify that this patient is under my care and that I, a nurse practitioner or a physician; a language assistant working with me, had a face to face encounter that - meets the physician face to face encounter requirements with this patient as dated. DIAZ KELLY DO Jul 02, 2021 06:46
[2021-07-02 07:13] LABS: BASOPHILS # (AUTO) 0.1 10^3/uL (0.0-0.1); BASOPHILS % (AUTO) 1 % (0-10); EOSINOPHILS # (AUTO) 0.1 10^3/uL (0.0-0.3); EOSINOPHILS % (AUTO) 2 % (0-10); HEMATOCRIT 36 % (35-52); HEMOGLOBIN 11.7 g/dL (11.5-16.0); LYMPHOCYTES # (AUTO) 1.1 10^3/uL (1.0-4.0); LYMPHOCYTES % (AUTO) 18 % (12-44); MEAN CORPUSCULAR HEMOGLOBIN 30 pg (25-34); MEAN CORPUSCULAR HGB CONC 33 g/dL (32-36); MEAN CORPUSCULAR VOLUME 93 fL (80-99); MEAN PLATELET VOLUME 9.7 fL (9.0-12.2); MONOCYTES # (AUTO) 0.5 10^3/uL (0.0-1.0); MONOCYTES % (AUTO) 9 % (0-12); NEUTROPHILS % (AUTO) 68 % (42-75); PLATELET COUNT 257 10^3/uL (130-400); WHITE BLOOD COUNT 5.8 10^3/uL (4.3-11.0)
[2021-07-02 07:27] LABS: ALBUMIN 3.8 GM/DL (3.2-4.5); POTASSIUM 3.7 MMOL/L (3.6-5.0)
[2021-07-02 07:28] LABS: CALCIUM 9.5 MG/DL (8.5-10.1)
[2021-07-02 07:29] LABS: TOTAL PROTEIN 6.4 GM/DL (6.4-8.2)
[2021-07-02 07:31] LABS: BILIRUBIN,TOTAL 0.7 MG/DL (0.1-1.0)
[2021-07-02 07:33] LABS: CREATININE SERUM 1.04 MG/DL (0.60-1.30)
[2021-07-02 07:57] VITALS: BP 140/65
--- NOTE | 2021-07-02 08:05 | Occupational Ther Daily Note ---
OT Current Status-Daily Note Subjective Pt alert, sitting in w/c. Pt agrees to therapy. Pt c/o pain does not rate, states that she just had a pain pill. Mental Status/Objective Patient Orientation: Person, Place, Time, Situation ADL-Treatment Pt agrees to shower. Pt independent with eating, oral care and shower. Pt retrieved clothing at w/c level. Pt uses w/c to navigate around environment independently and safely. Pt transfers to toilet using FWW, independently. Standing with FWW, pt able to hike pants over hips with supervision. Toilet hygiene independent while sitting on toilet. Pt utilizes FWW ambulates by hopping from toilet to tub transfer bench with supervision then is able to transfer into shower independently. Pt completed entire shower sitting on tub transfer bench. Utilizing w/c and bed for dressing. Pt is able to dress upper body independently. Using AE for lower body dressing, pt able to complete using AE with compression sock and threading R cast through tighter pants. Pt able to dress lower body sitting or lying on bed while hiking over hips. Pt dons L shoe independently. Instructional cues on how to problem solve using AE with tighter clothing. Therapy Code Descriptions/Definitions Functional [place] Measure: 0=Not Assessed/NA 4=Minimal Assistance 1=Total Assistance 5=Supervision or Setup 2=Maximal Assistance 6=Modified [place] 3=Moderate Assistance 7=Complete IndependenceSCALE: Activities may be completed with or without assistive devices. 1-Euxgxigmei-dvfjevd completes the activity by him/herself with no assistance from a helper. 5-Set-up or Clean-up Assistance-helper sets up or cleans up; patient completes activity. [place] assists only prior to or following the activity. 4-Supervision or Touching Assistance-helper provides verbal cues and/or touching/steadying and/or contact guard assistance as patient completes activity. Assistance may be provided throughout the activity or intermittently. 3-Partial/Moderate Assistance-helper does LESS THAN HALF the effort. [place] lifts, holds or supports trunk or limbs, but provides less than half the effort. 2-Substantial/Maximal Assistance-helper does MORE THAN HALF the effort. [place] lifts or holds trunk or limbs and provides more than half the effort. 5-Dhtpwsehj-movkla does ALL the effort. Patient does none of the effort to complete the activity. Or, the assistance of 2 or more helpers is required for the patient to complete the activity. If activity was not attempted, code reason: 7-Patient Refused. 9-Not Applicable-not attempted and the patient did not perform the activity b efore the current illness, exacerbation or injury. 10-Not Attempted due to Environmental Limitations-(lack of equipment, weather restraints, etc.). 88-Not Attempted due to Medical Conditions or Safety Concerns. Eating (QC): 6 Oral Hygiene (QC): 6 Shower/Bathe Self (QC): 6 Upper Body Dressing (QC): 6 Lower Body Dressing (QC): 6 On/Off Footwear: 6 Toileting Hygiene (QC): 4 Toilet Transfer (QC): 6 Other Treatment Independent with HEP for B UE strengthening using 3# hand wts. After session, pt sitting in w/c with call light/phone in reach. All needs met. OT Short Term Goals Short Term Goals Time Frame: Jul 13, 2021 Shower/bathe self: 3 Lower body dressin Putting on/taking off footwear: 3 OT Pocket Creaser Goals Retirement Goals Time Frame: Jul 20, 2021 Eating (QC): 6 (met) Oral Hygiene (QC): 6 (met) Toileting Hygiene (QC): 6 (not met) Shower/Bathe Self (QC): 6 (met) Upper Body Dressing (QC): 6 (met) Lower Body Dressing (QC): 6 (met at bed level) On/Off Footwear (QC): 6 (met) Additional Goals: 1-Demonstrate ADL Tasks, 2-Verbalize Understanding, 3- ImproveStrength/Dallin 1=Demonstrate adherence to instructed precautions during ADL tasks. 2=Patient will verbalize/demonstrate understanding of assistive devices/modifications for ADL. 3=Patient will improve strength/tolerance for activity to enable patient to perform ADL's. OT Education/Plan Problem List/Assessment Assessment: Decreased UE Strength, Impaired Funct Balance, Impaired Self-Care Skills Discharge Recommendations Plan/Recommendations: Continue POC Treatment Plan/Plan of Care Patient would benefit from OT for education, treatment and training to promote independence in ADL's, mobility, safety and/or upper extremity function for ADL's. Plan of Care: ADL Retraining, Functional Mobility, Group Exercise/Act as Ind, UE Funct Exercise/Act Treatment Duration: Jul 20, 2021 Frequency: At least 5 of 7 days/Wk (IRF) Estimated Hrs Per Day: 1.5 hours per day Agreement: Yes Rehab Potential: Fair Time/GCodes Start Time: 07:15 Stop Time: 09:00 Total Time Billed (hr/min): 105 Billed Treatment Time 1 visit-ADL 6 (90 min) EX 1 (15 min) REGLA DOUGLAS Jul 02, 2021 08:05
[2021-07-02] MEDS: TRIAMTERENE/HCTZ 75-50 (MAXZIDE,DYAZIDE) TABLET PO SCH (08:51)
[2021-07-02] MEDS: MELOXICAM 7.5 MG (MOBIC) TABLET PO SCH (08:51)
[2021-07-02] MEDS: SPIRONOLACTONE 25 MG (ALDACTONE) TAB PO SCH (08:51)
[2021-07-02] MEDS: FAMOTIDINE 20 MG (PEPCID) TABLET PO SCH (08:51)
[2021-07-02] MEDS: amLODIPine 2.5MG (NORVASC) TAB PO SCH (08:51)
[2021-07-02] MEDS: FUROSEMIDE 40 MG (LASIX) TAB PO SCH ×2 (08:51→14:26)
[2021-07-02] MEDS: KCL 20 MEQ TAB (K-DUR) PO SCH ×2 (08:52→12:02)
[2021-07-02] MEDS: polyethylene glycoL POWDER 17 GM (MIRALAX) PACK PO SCH (09:52)
--- NOTE | 2021-07-02 09:56 | Physical Therapy Daily Note ---
PT Daily Note-Current Subjective Patient in WC in room pre tx, agrees to PT, has no complaints of pain. Appearance Patient in WC in room post tx. with nurse call, phone, tray Mental Status Patient Orientation: Person, Place, Situation Transfers SCALE: Activities may be completed with or without assistive devices. 3-Ufjofobpxk-dirxqei completes the activity by him/herself with no assistance from a helper. 5-Set-up or Clean-up Assistance-helper sets up or cleans up; patient completes activity. [place] assists only prior to or following the activity. 4-Supervision or Touching Assistance-helper provides verbal cues and/or touching/steadying and/or contact guard assistance as patient completes activity. Assistance may be provided throughout the activity or intermittently. 3-Partial/Moderate Assistance-helper does LESS THAN HALF the effort. [place] lifts, holds or supports trunk or limbs, but provides less than half the effort. 2-Substantial/Maximal Assistance-helper does MORE THAN HALF the effort. [place] lifts or holds trunk or limbs and provides more than half the effort. 1-Dblbyztck-dtmfxv does ALL the effort. Patient does none of the effort to complete the activity. Or, the assistance of 2 or more helpers is required for the patient to complete the activity. If activity was not attempted, code reason: 7-Patient Refused. 9-Not Applicable-not attempted and the patient did not perform the activity before the current illness, exacerbation or injury. 10-Not Attempted due to Environmental Limitations-(lack of equipment, weather restraints, etc.). 88-Not Attempted due to Medical Conditions or Safety Concerns. Roll Left & Right (QC): 6 Sit to Lying (QC): 6 Lying to Sitting/Side of Bed(Q: 6 Sit to Stand (QC): 4 Chair/Mje-pu-Bkqtg Xfer(QC): 4 Toilet Transfer (QC): 4 Car Transfer (QC): 4 Patient performs rolling and supine <-> sit with independence, sit <-> stand and transfers with SBA, car transfer SBA. Patient has some difficulty with car transfer but can do it without assist but needs occasional cues for positioning, she has some difficulty with sit to supine also but can go it without assist or cues. Weight Bearing Right Lower Extremity: Right Non Weight Bearing Left Lower Extremity: Left Full Weight Bearing Gait Training Does the Patient Walk?: Yes Distance: 15' Walk 10 feet (QC): 4 Walk 50 ft with 2 Turns(QC): 88 Walk 150 ft (QC): 88 Walking 10ft/uneven surface-QC: 88 Gait Persons Needed: 1 Gait Assistive Device: FWW Patient can ambulate 15' with a rolling walker with SBA, she cannot ambulate ov er an uneven surface because she has poor foot clearance and uncoordinated hops Wheelchair Training Does the Pt Use a Wheelchair?: Yes Wheel 50 ft with 2 turns (QC): 6 Wheel 150 ft (QC): 6 Type of Wheelchair: Manual Patient can propel a manual WC 150' with independence, she does propel very slow Stair Training 1 Step (curb) (QC): 88 4 Steps (QC): 88 12 Steps (QC): 88 Balance Picking up an Object (QC): 4 (SBA using a varitype operator) Treatments bed mobility and transfers, ambulation, WC mobility Assessment Current Status: Poor Progress slow progress overall, needs somebody with her for transfers and ambulation PT Short Term Goals Short Term Goals Time Frame: Jul 06, 2021 Roll Left & Right: 4 Sit to lyin Lying to sitting on side of be: 4 Sit to stand: 4 Chair/yoo-ct-wqwuh transfer: 4 Toilet transfer: 4 Car transfer: 4 Walk 10 feet: 4 Walk 50 feet with two turns: 4 Walk 150 feet: 4 Walking 10ft on uneven surface: 4 1 step (curb): 2 Picking up objects: 2 Does pt use a wc or scooter: Yes Wheel 50ft w/2 turns: 4 Wheel 150 feet: 4 Type: Manual PT Half-Way Goals Half-Way Goals PT Half-Way Goals Time Frame: Jul 20, 2021 Roll Left & Right (QC): 6 Sit to Lying (QC): 6 Lying-Sitting on Side/Bed(QC): 6 Sit to Stand (QC): 6 Chair/Zgc-sc-Pjflm Xfer(QC): 6 Toilet Transfer (QC): 6 Car Transfer (QC): 6 Does the Patient Walk: Yes (Knee Scooter) Walk 10 feet (QC): 6 Walk 50ft with 2 Turns (QC): 6 Walk 150 ft (QC): 6 Walking 10ft on Uneven Surface: 6 1 Step (curb) (QC): 6 4 Steps (QC): 88 12 Steps (QC): 88 Picking up an Object (QC): 2 Does the Pt use WC or Scooter?: Yes Wheel 50 feet with 2 turns (QC: 6 Type: Manual Wheel 150 feet: 6 Type: Manual PT Plan Problem List Problem List: Activity Tolerance, Functional Strength, Safety, Balance, Gait, Transfer, Bed Mobility, ROM Treatment/Plan Treatment Plan: Continue Plan of Care Treatment Plan: Bed Mobility, Concurrent Therapy, Education, Functional Activity Dallin, Functional Strength, Group Therapy, Gait, Safety, Therapeutic Exercise, Transfers Treatment Duration: Jul 20, 2021 Frequency: At least 5 of 7 days/Wk (IRF) Estimated Hrs Per Day: 1.5 hours per day Patient and/or Family Agrees t: Yes Safety Risks/Education Patient Education: Gait Training, Transfer Techniques, Reviewed Precautions, Correct Positioning, W/C Management, Safety Issues Teaching Recipient: Patient Teaching Methods: Demonstration, Discussion Response to Teaching: Reinforcement Needed Time/GCodes Time In: 929 Time Out: 944 Total Billed Treatment Time: 15 Total Billed Treatment 1 visit FA 15' PA WHITE PT Jul 02, 2021 09:56
--- NOTE | 2021-07-02 10:02 | Therapy Team Discharge Summary ---
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 Upon evaluation patient performed rolling with independence, supine <-> sit SBA, sit <-> stand and transfers dependent. Patient has been performing bed mobility and transfer training, balance and endurance training, functional strengthening, gait training, and education. Patient has made some progress but has only met her skilled nursing goals for bed mobility, transfers, and WC mobility. Now, patient performs rolling and supine <-> sit with independence, sit <-> stand and transfers with SBA, car transfer SBA, ambulate 15' with a rolling walker with SBA, propel a manual WC 150' with independence, and can fiber picker an object from the floor with SBA using a reproductive healthcare assistant. Patient is being discharged from this facility today and will be discharged from PT at this time. Roll Left to Right (QC): 6 Sit to Lying (QC): 6 Lying to Sitting/Side of Bed(Q: 6 Sit to Stand (QC): 4 Chair/Jdc-nn-Zhhgr Xfer(QC): 4 Toilet Transfer (QC): 4 Car Transfer (QC): 4 Does the Patient Walk: Yes Mode of Locomotion: Walk Anticipated Mode of Locomotion: Walk Walk 10 feet (QC): 4 Walk 50 ft with 2 Turns(QC): 88 Walk 150 ft (QC): 88 Walking 10ft on uneven surface: 88 Gait Assistive Device: FWW Does the Pt Use a Wheelchair: Yes Wheel 50 ft with 2 turns (QC): 6 Wheel 150 ft (QC): 6 Type of Wheelchair: Manual 1 Step (curb) (QC): 88 4 Steps (QC): 88 12 Steps (QC): 88 Balance Sitting Static: Normal Balance Sitting Dynamic: Normal Balance-Standing Static: Fair Picking up an Object (QC): 4 (SBA using a reproductive healthcare assistant) Occupational Therapy Decreased UE Strength, Impaired Funct Balance, Impaired Self-Care Skills Eating (QC): 6 Oral Hygiene (QC): 6 Shower/Bathe Self (QC): 6 Upper Body Dressing (QC): 6 Lower Body Dressing (QC): 6 On/Off Footwear (QC): 6 Toileting Hygiene (QC): 4 PT Half-Way Goals Band Master Goals PT Band Master Goals Time Frame: Jul 20, 2021 Roll Left to Right (QC): 6 Sit to Lying (QC): 6 Lying-Sitting on Side/Bed(QC): 6 Sit to Stand (QC): 6 Chair/Cxp-yz-Iclbs Xfer(QC): 6 Car Transfer (QC): 6 Does the Patient Walk: Yes (Knee Scooter) Walk 10 feet (QC): 6 Walk 10ft-Uneven Surface(QC): 6 Walk 50ft with 2 Turns (QC): 6 Walk 150 ft (QC): 6 Does the Pt use WC or Scooter?: Yes Wheel 50 feet with 2 turns (QC: 6 1 Step (curb) (QC): 6 4 Steps (QC): 88 12 Steps (QC): 88 Picking up an Object (QC): 2 OT Band Master Goals Band Master Goals Time Frame: Jul 20, 2021 Eating (QC): 6 (met) Oral Hygiene (QC): 6 (met) Shower/Bathe Self (QC): 6 (met) Upper Body Dressing (QC): 6 (met) Lower Body Dressing (QC): 6 (met at bed level) On/Off Footwear (QC): 6 (not met) Toileting Hygiene (QC): 6 (not met) Toilet/Commode Transfer (QC): 6 Additional Goals: 1-Demonstrate ADL Tasks, 2-Verbalize Understanding, 3-ImproveStrength/Dallin 1=Demonstrate adherence to instructed precautions during ADL tasks. 2=Patient will verbalize/demonstrate understanding of assistive devices/modifications for ADL. 3=Patient will improve strength/tolerance for activity to enable patient to perform ADL's. PA WHITE PT Jul 02, 2021 10:02
[2021-07-02] MEDS ORDERED: ASPI-1238 PO (10:04)
[2021-07-02] MEDS: ENOXAPARIN 40 MG/0.4 ML (LOVENOX) SYR SC SCH (12:03)
[2021-07-02] MEDS: DICLOFENAC 1% GEL 100 GM (VOLTAREN) TUBE TOP SCH ×2 (13:04→14:19)
[2021-07-02] MEDS: SENNA W/DOCUSATE (SENOKOT S) TABLET PO SCH (13:04)
[2021-07-02] MEDS: DOCUSATE SODIUM 100 MG (COLACE) CAP PO SCH (13:04)
[2021-07-02] MEDS: FLUTICASONE NASAL SPRAY (FLONASE) 16 GM BTL NS SCH (13:05)
--- NOTE | 2021-07-02 14:28 | Therapy Team Discharge Summary ---
Therapy Discharge Summary Discharge Recommendations Date of Discharge Physical Therapy Roll Left to Right (QC): 6 Sit to Lying (QC): 6 Lying to Sitting/Side of Bed(Q: 6 Sit to Stand (QC): 4 Chair/Pjk-uz-Gqyum Xfer(QC): 4 Toilet Transfer (QC): 4 Car Transfer (QC): 4 Does the Patient Walk: Yes Mode of Locomotion: Walk Anticipated Mode of Locomotion: Walk Walk 10 feet (QC): 4 Walk 50 ft with 2 Turns(QC): 88 Walk 150 ft (QC): 88 Walking 10ft on uneven surface: 88 Gait Assistive Device: FWW Does the Pt Use a Wheelchair: Yes Wheel 50 ft with 2 turns (QC): 6 Wheel 150 ft (QC): 6 Type of Wheelchair: Manual 1 Step (curb) (QC): 88 4 Steps (QC): 88 12 Steps (QC): 88 Balance Sitting Static: Normal Balance Sitting Dynamic: Normal Balance-Standing Static: Fair Picking up an Object (QC): 4 (SBA using a lead man over all dies in pattern shop) Occupational Therapy Pt admitted to [facility] s/p R pes Planus correction. At [facility], pt was independent with all ADLs and functional mobility without AD/AE. Upon initial evaluation, pt was independent with eating, required CGA oral care, SBA showering, min A upper body dressing, mod A footwear, and total assist lower body dressing and toileting. OT tx focused on increasing BUE strength and activity tolerance, and increasing independence with ADLs and functional mobility. Pt made functional progress towards goals, attaining all LTGs except toileting. Pt to discharge from facility, d/c from OT. Decreased UE Strength, Impaired Funct Balance, Impaired Self-Care Skills Eating (QC): 6 Oral Hygiene (QC): 6 Shower/Bathe Self (QC): 6 Upper Body Dressing (QC): 6 Lower Body Dressing (QC): 6 On/Off Footwear (QC): 6 Toileting Hygiene (QC): 4 PT Fdc Goals Fdc Goals PT Revenue Analyst Goals Time Frame: Jul 20, 2021 Roll Left to Right (QC): 6 Sit to Lying (QC): 6 Lying-Sitting on Side/Bed(QC): 6 Sit to Stand (QC): 6 Chair/Pki-ni-Lgcnm Xfer(QC): 6 Car Transfer (QC): 6 Does the Patient Walk: Yes (Knee Scooter) Walk 10 feet (QC): 6 Walk 10ft-Uneven Surface(QC): 6 Walk 50ft with 2 Turns (QC): 6 Walk 150 ft (QC): 6 Does the Pt use WC or Scooter?: Yes Wheel 50 feet with 2 turns (QC: 6 1 Step (curb) (QC): 6 4 Steps (QC): 88 12 Steps (QC): 88 Picking up an Object (QC): 2 OT Revenue Analyst Goals Revenue Analyst Goals Time Frame: Jul 20, 2021 Eating (QC): 6 (met) Oral Hygiene (QC): 6 (met) Shower/Bathe Self (QC): 6 (met) Upper Body Dressing (QC): 6 (met) Lower Body Dressing (QC): 6 (met at bed level) On/Off Footwear (QC): 6 (met) Toileting Hygiene (QC): 6 (not met) Toilet/Commode Transfer (QC): 6 Additional Goals: 1-Demonstrate ADL Tasks, 2-Verbalize Understanding, 3- ImproveStrength/Dallin 1=Demonstrate adherence to instructed precautions during ADL tasks. 2=Patient will verbalize/demonstrate understanding of assistive devices/modifications for ADL. 3=Patient will improve strength/tolerance for activity to enable patient to perform ADL's. JORGE TRENT OT Jul 02, 2021 14:28
[2021-07-02 16:00] VITALS: BP 140/65
== END 2021-07-02 16:00 | disposition home health service (06) | DRG 561 ==
PROVIDERS: ADMIT Internal Medicine; ATTEND Internal Medicine
PROC: 3E0U33Z Introduction of Anti-inflammatory into Joints, Percutaneous Approach (ICD-10-PCS; principal; 2021-06-27)
DX: Z47.89 Encounter for other orthopedic aftercare (principal); I10 Essential (primary) hypertension; E78.00 Pure hypercholesterolemia, unspecified; E78.5 Hyperlipidemia, unspecified; M19.91 Primary osteoarthritis, unspecified site; E11.40 Type 2 diabetes mellitus with diabetic neuropathy, unspecified; G25.81 Restless legs syndrome; K59.09 Other constipation; M70.61 Trochanteric bursitis, right hip; E07.9 Disorder of thyroid, unspecified; E87.6 Hypokalemia; Z88.5 Allergy status to narcotic agent; Z88.2 Allergy status to sulfonamides; Z88.8 Allergy status to other drugs, medicaments and biological substances
CPT/HCPCS: 36415; 73502; 80048; 80053; 83735; 85025

== ENCOUNTER → 2022-06-14 | Outpatient (CLI) | payer MEDICARE ==
[~2022-06-14] MED LIST: AMLO2.5T4 PO; ASPI-1238 PO; BACL10TA PO; CALC-78 PO; CALC10009 PO; DICL20GE TP; DIPH25CA79 PO; DOCU100T7 PO; FAMO20TA5 PO; FLUT9.9S NSEACH; FURO40TA4 PO; HYDR-3820 PO; LEVO137T2 PO; LEVO5TAB28 PO; MAGN250T31 PO; MELO15TA14 PO; MELO7.5T46 PO; MULT-1136 PO; POTA-179 PO; POTA-51 PO; ROPI1TAB PO; SPIR25TA5 PO; TRIA1TAB5 PO
--- NOTE | 2022-06-14 10:09 | Diagnostic Imaging Report ---
INDICATION: Essential hypertension TECHNIQUE: Multiple real-time grayscale sonographic images, color and duplex Doppler images were obtained of the urinary system. FINDINGS: Limitations on this examination by overlying bowel gas and body habitus. Aortic velocity: 142 cm/sec. RIGHT kidney: Size: 8.2 x 3.5 x 3.5 cm The right renal parenchyma and collecting system appear unremarkable. The right renal artery is visualized in its proximal, mid and distal aspect. Maximum renal artery velocity: 133cm/sec Maximum renal artery/aortic ratio: 0.94 LEFT kidney: Size: 10.2 x 5.8 x 5.2 cm The left renal parenchyma and collecting system appear unremarkable. The left renal artery is visualized in its proximal, mid and distal aspect. Maximum renal artery velocity: 147cm/sec Maximum renal artery/aortic ratio: 1.0 Bladder: Not imaged. IMPRESSION: 1. Asymmetrically smaller right knee. 2. Unremarkable renal doppler. (RA/AO ratios > 3.0 may suggest potential hemodynamically significant stenosis.) Dictated by: Dictated on workstation # [id number]
== END ==
LOC: RAD 08:44
DX: Q68.2 Congenital deformity of knee (principal); I10 Essential (primary) hypertension; I20.8 Other forms of angina pectoris; I87.2 Venous insufficiency (chronic) (peripheral); I87.1 Compression of vein; R60.0 Localized edema
CPT/HCPCS: 76770; 93975; C8929; 93306

== ENCOUNTER → 2022-06-17 | Outpatient (CLI) | payer MEDICARE ==
[~2022-06-17] MED LIST changes: +HOLD METFORMIN - RECEIVED CONTRAST 20 ML VIAL IV SCH; +IOHEXOL 350 MG/ML 100 ML (OMNIPAQUE 350) VIAL IV ONE; +NITROGLYCERIN 0.4 MG SL TABS BTL 25'S SL STA; +NS 100 ML (IVPB) BAG IV ONE; +meTOprolol 5 MG/5 ML (LOPRESSOR) VIAL IV PRN
[2022-06-17 10:32] VITALS: BP 139/60
[2022-06-17 10:40] VITALS: BP 127/58
[2022-06-17 10:45] VITALS: BP 132/79
--- NOTE | 2022-06-17 10:58 | Diagnostic Imaging Report ---
EXAMINATION: CTA of the coronary arteries. TECHNIQUE: Contrast enhanced thin section helical images were obtained through the heart and coronary arteries with intravenous contrast timed for the optimal opacification of the coronary arterial structures per gated CTA protocol. Post-processing, reconstructions and interpretation of angiographic images of the vessels was performed. 3D MIP reconstructions were performed and reviewed. All CT scans use one or more of the following dose optimizing techniques: automated exposure control, MA and/or KvP adjustment based on a patient size and exam type, or iterative reconstruction. HISTORY: Dyspnea on exertion. COMPARISON: None available. FINDINGS: The left main coronary artery is normal. There is a calcified plaque mid left anterior descending artery resulting in mild stenosis of less than 30%. The circumflex artery is large vessel and is normal. The right coronary arteries with small vessel ending as an acute marginal without stenosis. The coronary arteries are left dominant. There is no anomalous coronary artery origin or course. There is no myocardial bridging. There is no ventricular dilation or hypertrophy. Both atria are normal in size. Aorta is normal in caliber. There is no edema or pneumonia. No pleural effusion. No pneumothorax. No suspicious nodules. No pericardial effusion. There is no axillary or supraclavicular lymphadenopathy. There is no mediastinal lymphadenopathy. There is a small hiatal hernia. Limited views of the upper abdomen are unremarkable. There are no suspicious osseous lesions. IMPRESSION: 1. Focal calcified plaque in the mid left anterior descending artery resulting in mild stenosis less than 30%. Remaining coronary arteries are normal. Dictated by: Dictated on workstation # [id number]
== END ==
LOC: RAD 09:51
DX: I25.10 Atherosclerotic heart disease of native coronary artery without angina pectoris (principal)
CPT/HCPCS: 75574

== ENCOUNTER 2023-02-18 11:05 | Outpatient (CLI) | payer MEDICARE ==
[~2023-02-18 11:05] MED LIST changes: -HOLD METFORMIN - RECEIVED CONTRAST 20 ML VIAL IV SCH; -IOHEXOL 350 MG/ML 100 ML (OMNIPAQUE 350) VIAL IV ONE; -NITROGLYCERIN 0.4 MG SL TABS BTL 25'S SL STA; -NS 100 ML (IVPB) BAG IV ONE; +POTA-330 PO; -POTA-51 PO; -ROPI1TAB PO; +ROPI1TAB46 PO; -meTOprolol 5 MG/5 ML (LOPRESSOR) VIAL IV PRN
== END 2023-02-18 11:50 ==
LOC: SLEEP 11:05
PROVIDERS: ATTEND Internal Medicine Cardiovascular Disease
DX: G47.33 Obstructive sleep apnea (adult) (pediatric) (principal); G47.10 Hypersomnia, unspecified; R06.83 Snoring; I10 Essential (primary) hypertension; I49.9 Cardiac arrhythmia, unspecified
CPT/HCPCS: G0399